=== PATIENT | male | born 1955 | race Caucasian/White ===

== ENCOUNTER 2021-05-21 09:56 | Inpatient (IN) | payer MEDICARE, OTHER ==
[2021-05-21 10:59] LABS: Absolute Lymphocytes (CBC) 0.6 K/uL (0.7-4.9); Basophils % 0.2 % (0-1.3); Hematocrit 42.9 % (39.6-49.0); Lymphocytes % 12.8 % (15.3-44.8); MPV 7.8 fL (7.6-11.3); RBC Red Blood Cell Count 4.67 M/uL (4.33-5.43)
[2021-05-21 11:02] LABS: Protime INR 1.15
[2021-05-21 11:14] LABS: ALT/SGPT 32 U/L (12-78); AST/SGOT 48 U/L (15-37); Alkaline Phosphatase 55 U/L (45-117); BUN Blood Urea Nitrogen 17 mg/dL (7-18); Bicarbonate 22 mmol/L (21-32); Bilirubin Direct 0.4 mg/dL (0-0.2); Bilirubin Total 0.8 mg/dL (0.2-1.0); Glucose Level 110 mg/dL (74-106); Magnesium 2.2 mg/dL (1.8-2.4); NT PRO-BNP 60 pg/mL (<125); Potassium 3.8 mmol/L (3.5-5.1); Protein, Total 6.4 g/dL (6.4-8.2); Sodium Level 136 mmol/L (136-145); Troponin (Emerg Dept Use Only) < 0.02 ng/mL (0.0-0.045)
--- NOTE | 2021-05-21 11:28 | RAD REPORT ---
EXAM DESCRIPTION: RAD - Chest Single View - 05/21/2021 10:31 am CLINICAL HISTORY: Cough;Dyspnea Chest pain. COMPARISON: No comparisons FINDINGS: Portable technique limits examination quality. Elevation of the left hemidiaphragm is seen without clear etiology. There is [id number] interst itial lung opacities present bilaterally, greater on the left, likely representing infection/bronchit is. The heart is mildly prominent in size. No displaced fractures.
[2021-05-21] MEDS ORDERED: AZITHROMYCIN 500 MG INJ IVPB ONE (11:30)
[2021-05-21] MEDS ORDERED: CEFTRIAXONE/SWI 1gm 1 GM/10 ML SYR ONE (11:31)
[2021-05-21] MEDS ORDERED: NA CHLORIDE 0.9% 250 ML ONE (11:31)
[2021-05-21] MEDS ORDERED: NA CHLORIDE 0.9% 50 ML ONE (11:31)
--- NOTE | 2021-05-21 12:43 | ER ---
Nurse's Notes [facility] Name: Abraham Crowe Age: 65 yrs Sex: Male : 1955 Arrival Date: 05/21/2021 Time: 09:57 Bed 20 Private MD: Diagnosis: Pneumonia due to SARS-associated coronavirus;Acute respiratory failure with hypoxia Presentation: 05/21 09:57 Chief complaint: EMS states: patient was at [facility] family clinic for the second time this ap3 week complaining of SOB and fever. Coronavirus screen: Client presents with at least one sign or symptom that may indicate coronavirus-19. Standard/surgical mask placed on the client. Ebola Screen: No symptoms or risks identified at this time. Initial Sepsis Screen: Does the patient meet any 2 criteria? RR > 20 per min. Temp <36.0*C (96.8*F)) or > 38.3*C (100.9*F). Yes Does the patient have a suspected source of infection? No. Patient's initial sepsis screen is negative. Risk Assessment: Do you want to hurt yourself or someone else? Patient reports no desire to harm self or others. Onset of symptoms was April 18, 2021. Care prior to arrival: Medication(s) given: Tylenol, 1000 mg, IV initiated. 20 GA, in the left antecubital area, Oxygen administered. via nasal cannula. 09:57 Method Of Arrival: EMS: [facility] ap3 09:57 Acuity: DOMINIC 3 ap3 Historical: - Allergies: 10:00 No Known Allergies; ap3 - PMHx: 10:00 Hypercholesterolemia; ap3 - PSHx: 10:00 None; ap3 - Immunization history:: Adult Immunizations up to date, Client reports having NOT received the Covid vaccine. - Social history:: Smoking status: Patient reports the use of cigarette tobacco products, smokes one-half pack cigarettes per day, Patient/guardian denies using alcohol, street drugs. Screenin:01 Abuse screen: Denies threats or abuse. Tuberculosis screening: No symptoms or risk ap3 factors identified. 10:16 Nutritional screening: No deficits noted. Fall Risk Ambulatory Aid- None/Bed Rest/Nurse jd3 Assist (0 pts). Gait- Normal/Bed Rest/Wheelchair (0 pts) Mental Status- Oriented to own ability (0 pts). Total Pereira Fall Scale indicates No Risk (0-24 pts). Assessment: 11:01 General: Appears uncomfortable, Behavior is calm, cooperative, appropriate for age. jd3 Pain: Complains of pain in head and chest Quality of pain is described as aching. Neuro: Level of Consciousness is awake, alert, obeys commands, Oriented to person, place, time, situation. Cardiovascular: Denies chest pain, Capillary refill < 3 seconds Patient's skin is warm and dry. Respiratory: Reports shortness of breath cough that is persistent Airway is patent Respiratory effort is even, unlabored, Respiratory pattern is regular, symmetrical, Breath sounds are diminished bilaterally. GI: Reports intolerance of fluids, intolerance of food, nausea. : No signs and/or symptoms were reported regarding the genitourinary system. EENT: No signs and/or symptoms were reported regarding the EENT system. Derm: Skin is intact, Skin is dry, Skin is normal, Skin temperature is warm. Musculoskeletal: Circulation, motion, and sensation intact. Range of motion: intact in all extremities. 11:27 Reassessment: Patient appears in no apparent distress at this time. No changes from jd3 previously documented assessment. Patient and/or family updated on plan of care and expected duration. Pain level reassessed. 12:30 Reassessment: Patient appears in no apparent distress at this time. No changes from jd3 previously documented assessment. Patient and/or family updated on plan of care and expected duration. Pain level reassessed. 14:30 Reassessment: Patient appears in no apparent distress at this time. No changes from jd3 previously documented assessment. Patient and/or family updated on plan of care and expected duration. Pain level reassessed. pt admitted to ER HOLD. see [facility] charting. Vital Signs: 09:57 BP 109 / 74; Pulse 88; Resp 26; Temp 101.9; Pulse Ox 95% on 4 lpm NC; Weight 99.79 kg; ap3 Height 6 ft. (182.88 cm); 11:27 BP 95 / 61; Pulse 76; Resp 25 S; Pulse Ox 96% on 4 lpm NC; jd3 12:30 BP 96 / 62; Pulse 75; Resp 26 S; Pulse Ox 96% on 4 lpm NC; jd3 14:30 BP 131 / 80; Pulse 85; Resp 18 S; Temp 98.7(TE); Pulse Ox 96% on 4 lpm NC; jd3 09:57 Body Mass Index 29.84 (99.79 kg, 182.88 cm) ap3 ED Course: 09:57 Patient arrived in ED. ap3 09:59 Patient has correct armband on for positive identification. Placed in gown. Bed in low mh5 position. Call light in reach. Side rails up X 1. Pillow given. 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 Pulse ox on. NIBP on. 09:59 Maintain EMS IV. Dressing intact. Site clean \T\ dry. mh5 10:00 Triage completed. ap3 10:08 Spencer Gallegos MD is Attending Physician. [facility] 10:14 Khoi Gonzalez RN is Primary Nurse. jd3 10:16 Samir Anne PA is PHCP. jr8 10:16 Arm band placed on. jd3 10:31 XRAY Chest (1 view) In Process Unspecified. EDMS 10:35 Flu Sent. 5 10:35 EKG done, by ED staff, reviewed by Spencer Gallegos MD COVID swab sent to lab. Flu and/or 5 RSV swab sent to lab. 10:53 Inserted saline lock: 20 gauge in right antecubital area, using aseptic technique. jd3 Blood collected. 12:39 CT Chest For PE Angio In Process Unspecified. EDMS 12:42 Jude Gonzalez DO is Hospitalizing Provider. jr8 15:15 No provider procedures requiring assistance completed. Patient admitted, IV remains in jd3 place. 05/27 19:00 Report given to Sadiq Gutierrez. vg1 Administered Medications: 04 10:20 Not Given (given by EMSs): Tylenol 1000 mg PO once ap3 11:35 Drug: Rocephin (cefTRIAXone) 1 grams Route: IV; Rate: calculated rate; Site: right jd3 antecubital; 11:46 Drug: Zithromax (azithromycin) 500 mg Route: IVPB; Infused Over: 1 hrs; Site: right jd3 antecubital; 14:14 Drug: SOLU-Medrol (methylPrednisoLONE) 125 mg Route: IVP; Site: right antecubital; jd3 Outcome: 12:42 Decision to Hospitalize by Provider. jr8 15:15 Admitted to ER Hold. Please see [employer] for further documentation. jd3 15:15 Condition: stable 15:15 Instructed on the need for admit. 05/28 12:18 Patient left the ED. em1 Signatures: Dispatcher [employer] EDMS Spencer Gallegos MD MD cha Martinez, Eric em1 Samir Anne PA PA jr8 Martinez, Maria [facility] Khoi Gonzalez RN RN jd3 Kylie Moran RN RN ap3 Kathy Dash RN RN vg1 Corrections: (The following items were deleted from the chart) 05/21 11:09 10:35 CORONAVIRUS+ drawn and sent. [address] 11:27 11:27 Reassessment: Patient appears in no apparent distress at this time. No changes jd3 from previously documented assessment. Patient and/or family updated on plan of care and expected duration. Pain level reassessed. Patient is alert, oriented x 3, equal unlabored respirations, skin warm/dry/pink. jd3
--- NOTE | 2021-05-21 12:43 | EDPHYS ---
Physician Documentation [facility] Name: Abraham Crowe Age: 65 yrs Sex: Male : 1955 Arrival Date: 05/21/2021 Time: 09:57 Bed 20 Private MD: ED Physician Spencer Gallegos HPI: 05/21 10:37 This 65 yrs old Male presents to ER via EMS with complaints of shortness of jr8 breath, fever. 10:37 This is a 65-year-old male that presented to the emergency department for complaints of jr8 shortness of breath, fever, diarrhea that started this past Wednesday. Patient with 101.9 fever upon arrival. This past Wednesday he was tested for coronavirus and had a negative result. Came to the emergency room today for feeling worse.. Severity of symptoms: At their worst the symptoms were moderate in the emergency department the symptoms are unchanged. The patient has not experienced similar symptoms in the past. The patient has not recently seen a physician. Historical: - Allergies: 10:00 No Known Allergies; ap3 - PMHx: 10:00 Hypercholesterolemia; ap3 - PSHx: 10:00 None; ap3 - Immunization history:: Adult Immunizations up to date, Client reports having NOT received the Covid vaccine. - Social history:: Smoking status: Patient reports the use of cigarette tobacco products, smokes one-half pack cigarettes per day, Patient/guardian denies using alcohol, street drugs. ROS: 10:37 Cardiovascular: Negative for chest pain, palpitations, and edema, Back: Negative for jr8 injury and pain, MS/Extremity: Negative for injury and deformity, Skin: Negative for injury, rash, and discoloration, Neuro: Negative for headache, weakness, numbness, tingling, and seizure. 10:37 Constitutional: Positive for body aches, chills, fever, malaise. 10:37 Respiratory: Positive for cough, shortness of breath. 10:37 Abdomen/GI: Positive for diarrhea, Negative for abdominal pain, nausea and vomiting. 10:37 All other systems are negative. Exam: 10:37 Constitutional: This is a well developed, well nourished patient who is awake, alert, jr8 and in no acute distress. 10:37 ENT: Nares patent. No nasal discharge, no septal abnormalities noted. Tympanic membranes are normal and external auditory canals are clear. Oropharynx with no redness, swelling, or masses, exudates, or evidence of obstruction, uvula midline. Mucous membranes moist. Cardiovascular: Regular rate and rhythm with a normal S1 and S2. No gallops, murmurs, or rubs. Normal PMI, no JVD. No pulse deficits. Abdomen/GI: Soft, non-tender, with normal bowel sounds. No distension or tympany. No guarding or rebound. No evidence of tenderness throughout. Back: No spinal tenderness. No costovertebral tenderness. Full range of motion. Skin: Warm, dry with normal turgor. Normal color with no rashes, no lesions, and no evidence of cellulitis. MS/ Extremity: Pulses equal, no cyanosis. Neurovascular intact. Full, normal range of motion. Neuro: Awake and alert, GCS 15, oriented to person, place, time, and situation. Cranial nerves II-XII grossly intact. Motor strength 5/5 in all extremities. Sensory grossly intact. 10:37 Respiratory: the patient does not display signs of respiratory distress, Respirations: tachypnea, that is mild, Breath sounds: rales, that are mild, are located in both bases. Vital Signs: 09:57 BP 109 / 74; Pulse 88; Resp 26; Temp 101.9; Pulse Ox 95% on 4 lpm NC; Weight 99.79 kg; ap3 Height 6 ft. (182.88 cm); 11:27 BP 95 / 61; Pulse 76; Resp 25 S; Pulse Ox 96% on 4 lpm NC; jd3 12:30 BP 96 / 62; Pulse 75; Resp 26 S; Pulse Ox 96% on 4 lpm NC; jd3 14:30 BP 131 / 80; Pulse 85; Resp 18 S; Temp 98.7(TE); Pulse Ox 96% on 4 lpm NC; jd3 09:57 Body Mass Index 29.84 (99.79 kg, 182.88 cm) ap3 MDM: 10:09 Patient medically screened. [facility] 12:40 Data reviewed: vital signs, nurses notes, lab test result(s), EKG, radiologic studies, jr8 CT scan, plain films. Data interpreted: Pulse oximetry: on room air is 88 %. Interpretation: hypoxia. Plan: O2 by NC applied. Counseling: I had a detailed discussion with the patient and/or guardian regarding: the historical points, exam findings, and any diagnostic results supporting the discharge/admit diagnosis, lab results, radiology results, the need for further work-up and treatment in the hospital. 05/21 10:17 Order name: Basic Metabolic Panel [facility] 05/21 10:17 Order name: CBC with Diff [facility] 05/21 10:17 Order name: LFT's [facility] 05/21 10:17 Order name: Magnesium [facility] 05/21 10:17 Order name: NT PRO-BNP [facility] 05/21 10:17 Order name: PT-INR [facility] 05/21 10:17 Order name: Troponin (emerg Dept Use Only); Complete Time: 11:20 [facility] 05/21 10:17 Order name: Blood Culture Adult (2); Complete Time: 11:25 [facility] 05/21 10:17 Order name: Lactate; Complete Time: 11:20 [facility] 05/21 10:17 Order name: Procalcitonin; Complete Time: 11:55 [facility] 05/21 10:17 Order name: Urine Culture; Complete Time: 06:08 [facility] 05/21 10:17 Order name: Flu; Complete Time: 11:30 [facility] 05/21 10:18 Order name: Basic Metabolic Panel; Complete Time: 11:20 EDME 05/21 10:18 Order name: CBC with Automated Diff; Complete Time: 11:20 EDME 05/21 10:18 Order name: Liver (Hepatic) Function; Complete Time: 11:20 EDME 05/21 10:18 Order name: Magnesium; Complete Time: 11:20 EDME 05/21 10:18 Order name: NT PRO-BNP; Complete Time: 11:20 EDME 05/21 10:18 Order name: Protime (+INR); Complete Time: 11:20 EDME 05/21 12:15 Order name: SARS-COV-2 RT PCR; Complete Time: 12:17 EDME 05/21 12:39 Order name: CRP; Complete Time: 14:53 8 05/21 12:39 Order name: Ferritin; Complete Time: 14:53 8 05/21 22:08 Order name: Urine Dipstick-Ancillary; Complete Time: 07:18 EDME 05/21 22:40 Order name: Urinalysis; Complete Time: 07:18 EDME 05/21 23:27 Order name: Urine Microscopic Only; Complete Time: 07:18 EDMS 08/05 06:09 Order name: CBC with Automated Diff; Complete Time: 07:18 EDMS 08/05 06:20 Order name: Comprehensive Metabolic Panel; Complete Time: 07:18 EDMS 08/05 06:20 Order name: Magnesium; Complete Time: 07:18 EDMS 0806 05:39 Order name: Comprehensive Metabolic Panel; Complete Time: 06:48 EDMS 0806 05:39 Order name: Magnesium; Complete Time: 06:48 EDMS 0804 10:17 Order name: XRAY Chest (1 view); Complete Time: 11:30 roslyn 04 12:11 Order name: CT Chest For PE Angio; Complete Time: 13:28 jr8 05/23 05:41 Order name: CBC with Automated Diff; Complete Time: 06:48 EDMS 0806 17:17 Order name: C-Reactive Protein; Complete Time: 17:34 EDMS 05/23 17:17 Order name: Ferritin; Complete Time: 17:34 EDMS 0807 06:09 Order name: CBC with Automated Diff; Complete Time: 06:08 EDMS 0807 06:19 Order name: Comprehensive Metabolic Panel; Complete Time: 06:08 EDMS 0807 06:19 Order name: C-Reactive Protein; Complete Time: 06:08 EDMS 0807 06:19 Order name: Magnesium; Complete Time: 06:08 EDMS 0807 08:49 Order name: RAD; Complete Time: 06:08 EDMS 0807 09:34 Order name: Manual Differential; Complete Time: 06:08 EDMS 0808 05:59 Order name: CBC with Automated Diff; Complete Time: 06:08 EDMS 0808 06:07 Order name: Comprehensive Metabolic Panel; Complete Time: 06:08 EDMS 0808 06:07 Order name: C-Reactive Protein; Complete Time: 06:08 EDMS 0808 06:07 Order name: Magnesium; Complete Time: 06:08 EDMS 0808 06:07 Order name: Ferritin; Complete Time: 06:08 EDMS 0808 07:54 Order name: RAD; Complete Time: 06:08 EDMS 08 04:58 Order name: CBC with Automated Diff; Complete Time: 06:08 EDMS 05/26 05:05 Order name: Comprehensive Metabolic Panel; Complete Time: 06:08 EDMS 08 05:05 Order name: C-Reactive Protein; Complete Time: 06:08 EDMS 05/26 05:05 Order name: Magnesium; Complete Time: 06:08 EDMS 05/26 05:05 Order name: Ferritin; Complete Time: 06:08 EDMS 05/27 05:15 Order name: CBC with Automated Diff; Complete Time: 16:01 EDMS 05/27 05:46 Order name: Comprehensive Metabolic Panel; Complete Time: 16:01 EDMS 05/27 05:46 Order name: C-Reactive Protein; Complete Time: 16:01 EDMS 05/27 05:46 Order name: Magnesium; Complete Time: 16:01 EDMS 05/27 05:46 Order name: Ferritin; Complete Time: 16:01 EDMS 05/28 05:34 Order name: Comprehensive Metabolic Panel; Complete Time: 22:32 EDMS 05/28 05:34 Order name: C-Reactive Protein; Complete Time: 22:32 EDMS 05/28 05:34 Order name: Magnesium; Complete Time: 22:32 EDMS 05/28 05:34 Order name: Ferritin; Complete Time: 22:32 EDMS 05/28 06:11 Order name: CBC with Automated Diff; Complete Time: 22:32 EDMS 05/21 10:17 Order name: EKG; Complete Time: 10:19 [facility] 05/21 10:17 Order name: Cardiac monitoring; Complete Time: 10:18 [facility] 05/21 10:17 Order name: EKG - Nurse/Tech; Complete Time: 10:53 [facility] 05/21 10:17 Order name: IV Saline Lock; Complete Time: 10:20 [facility] 05/21 10:17 Order name: Labs collected and sent; Complete Time: 10:53 [facility] 05/21 10:17 Order name: O2 Per Protocol; Complete Time: 10:17 [facility] 05/21 10:17 Order name: O2 Sat Monitoring; Complete Time: 10:17 [facility] 05/26 08:14 Order name: RAD; Complete Time: 08:59 EDMS 05/27 07:21 Order name: RAD; Complete Time: 16:01 EDMS Administered Medications: 10:20 Not Given (given by EMSs): Tylenol 1000 mg PO once ap3 11:35 Drug: Rocephin (cefTRIAXone) 1 grams Route: IV; Rate: calculated rate; Site: right jd3 antecubital; 11:46 Drug: Zithromax (azithromycin) 500 mg Route: IVPB; Infused Over: 1 hrs; Site: right jd3 antecubital; 14:14 Drug: SOLU-Medrol (methylPrednisoLONE) 125 mg Route: IVP; Site: right antecubital; jd3 Disposition: 05/29 07:11 Co-signature as Attending Physician, Spencer Gallegos MD I agree with the assessment and roslyn plan of care. Disposition Summary: 05/21/21 12:42 Hospitalization Ordered Hospitalization Status: Inpatient Admission jr8 Provider: Jude Gonzalez Condition: Fair jr8 Problem: new jr8 Symptoms: have improved jr8 Bed/Room Type: Standard [facility] Location: Telemetry/MedSurg (Inpatient)(05/28/21 10:25) bd Room Assignment: 406(05/28/21 10:25) bd Diagnosis - Pneumonia due to SARS-associated coronavirus jr8 - Acute respiratory failure with hypoxia jr8 Forms: - Medication Reconciliation Form jr8 - SBAR form jr8 Signatures: Dispatcher [employer] EDAlicia North Corey, MD MD cha Smirch, Shelby, RN RN Samir James PA PA jr8 Khoi Gonzalez RN RN jKylie Foster RN RN ap3 Corrections: (The following items were deleted from the chart) 05/21 11:09 10:19 CORONAVIRUS+.BRZ ordered. EDME EDMS 14:31 12:42 Telemetry/MedSurg (Inpatient) jr8 ss 14:31 12:42 jr8 ss 18:37 14:31 [facility] ER HOLD ss bd 18:37 14:31 ERHOLD- ss bd 18:39 18:37 Telemetry/MedSurg (Inpatient) bd bd 18:39 18:37 212 bd bd 18:39 18:39 bd bd 05/28 10:25 05/21 18:39 [facility] ER HOLD bd bd 05/28 10:25 05/21 18:39 ERHOLD- bd bd
--- NOTE | 2021-05-21 12:53 | RAD REPORT ---
EXAM DESCRIPTION: CT - Chest For Pe Angio - 05/21/2021 12:39 pm CLINICAL HISTORY: CHEST PAIN COMPARISON: No comparisons FINDINGS: Chest Wall: No suspicious thyroid nodules or pathologic lymphadenopathy. Lungs: Patchy bilateral ground-glass and mildly consolidative airspace disease. Pleura: No significant effusions or pneumothorax. Mediastinum/rosaura: Bilateral hilar adenopathy. This is likely reactive. Pulmonary arteries/Aorta: No filling defect identified. No aortic aneurysm. Heart: No significant pericardial effusion. Normal heart size. Upper abdomen: No acute abnormality. Bones: No acute abnormality. IMPRESSION: Negative for pulmonary embolism. Moderate bilateral airspace disease in a pattern that m ost likely represents multifocal pneumonia, including Covid-19.
[2021-05-21] MEDS ORDERED: METHYLPREDNISOLONE 125 MG INJ ONE (14:26)
--- NOTE | 2021-05-21 14:26 | P.HP ---
Certification for Inpatient Patient admitted to: Inpatient With expected LOS: >2 Midnights Patient will require the following post-hospital care: Other (Home oxygen) Practitioner: I am a practitioner with admitting privileges, knowledge of patient current condition, hospital course, and medical plan of care. Services: Services provided to patient in accordance with Admission requirements found in Title 42 Section 412.3 of the Code of Federal Regulations Patient History Date of Service: 05/21/21 Primary Care Provider: Konrad Delgado NP Reason for admission: Shortness of breath History of Present Illness: 65-year-old male with history of hyperlipidemia and tobacco abuse. Patient presented with increasing shortness of breath, fever, chills and fatigue. Symptoms started several days ago. It got worse on Wednesday. The patient continued to have increasing shortness of breath with exertion. He came to the ER for further evaluation. Patient is unvaccinated for COVID-19. In the ER patient was evaluated. Patient found to be hypoxic. Patient placed on 4 L per nasal cannula. Chest x-ray shows evidence of Covid pneumonia. CT scan shows evidence of Covid changes. Negative for pulmonary embolism. White count 4.7, hemoglobin 14.7. Platelet count 127. Sodium 136, potassium 3.8. BUN of 17, creatinine 1.21 with a GFR of 60. Glucose 110. AST 48, ALT 32. Troponin unremarkable. Lactic acid normal. Patient positive for Covid. Ferritin and CRP pending. Patient admitted for further evaluation and treatm ent. Patient given IV Solu-Medrol in the ER. 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 - Family History Family History: Reviewed- Non-Contributory - Social History Smoking Status: Light Tobacco smoker (1-9 cigarettes/day) Counseled patient to stop smoking for: less than 10 minutes Smoking therapy provided: Yes Patient receptive to therapy: Yes Alcohol use: No CD- Drugs: No Caffeine use: Yes Place of Residence: Home Review of Systems General: Weakness, Malaise, As per HPI Eyes: Unremarkable ENT: Nose Congestion, As per HPI Respiratory: Cough, Shortness of Breath, SOB with Excertion, As per HPI Cardiovascular: Unremarkable Gastrointestinal: Nausea, As per HPI Genitourinary: Unremarkable Musculoskeletal: Unremarkable Integumentary: Unremarkable Neurological: Unremarkable Lymphatics: Unremarkable Physical Examination - Studies Laboratory Data (last 24 hrs) 05/21/21 10:47: PT 13.3 H, INR 1.15 05/21/21 10:47: WBC 4.70, Hgb 14.7, Hct 42.9, Plt Count 127 L 05/21/21 10:47: Sodium 136, Potassium 3.8, BUN 17, Creatinine 1.21, Glucose 110 H, Magnesium 2.2, Total Bilirubin 0.8, AST 48 H, ALT 32, Alkaline Phosphatase 55 Microbiology Data (last 24 hrs): 05/21/21 10:34 Nasopharnyx Influenza Type A Antigen Screen - Final 05/21/21 10:34 Nasopharnyx Influenza Type B Antigen Screen - Final Assessment and Plan - Plan COVID: Positive, unvaccinated Chest x-ray: FINDINGS: Portable technique limits examination quality. Elevation of the left hemidiaphragm is seen without clear etiology. There is atzq-yn-cgltesvj interstitial lung opacities present bilaterally, greater on the left, likely representing infection/bronchitis. The heart is mildly prominent in size. No displaced fractures. CT scan: COMPARISON: No comparisons FINDINGS: Chest Wall: No suspicious thyroid nodules or pathologic lymphadenopathy. Lungs: Patchy bilateral ground-glass and mildly consolidative airspace disease. Pleura: No significant effusions or pneumothorax. Mediastinum/rosaura: Bilateral hilar adenopathy. This is likely reactive. Pulmonary arteries/Aorta: No filling defect identified. No aortic aneurysm. Heart: No significant pericardial effusion. Normal heart size. Upper abdomen: No acute abnormality. Bones: No acute abnormality. IMPRESSION: Negative for pulmonary embolism. Moderate bilateral airspace disease in a pattern that most likely represents multifocal pneumonia, including Covid-19. Physical Exam: GENERAL: The patient is a well-developed, well-nourished, in no apparent distress. Alert and oriented x3. VITAL SIGNS: Reviewed HEENT: Extraocular movements intact. Nares patent. NECK: Supple. No carotid bruits. No lymphadenopathy or thyromegaly. LUNGS: Patient does not appear in any distress. Currently on 4 L per nasal cannula HEART: Regular rate and rhythm on telemetry ABDOMEN: Soft, nontender, and nondistended. Positive bowel sounds. No hepatosplenomegaly was noted. EXTREMITIES: Without any cyanosis, clubbing, rash, lesions or peripheral edema. NEUROLOGIC: The patient is oriented to person, place and time. Strength and sensation are grossly intact. Face is symmetric. SKIN: Normal color, turgor and temperature. No ulcerations or rashes noted. Impression: Shortness of breath secondary to bilateral Covid pneumonia with hypoxia, unvaccinated Hyperlipidemia Plan: Shortness of breath secondary to bilateral Covid pneumonia with hypoxia, unvaccinated: Patient admitted for further evaluation and treatment. Will continue with IV steroids and supplementation. Will monitor CRP and ferritin. Will provide medication for cough, shortness of breath. Encourage proning, incentive spirometer, and ambulation. Pulmonology consulted. Await further recommendations. DVT prophylaxisLovenox in place. Recheck chest x-ray tomorrow. Will continue to reassess and monitor. Respiratory to wean off oxygen. If symptoms worsen patient may benefit with baricitinib. Anticipate improvement over the next 72 hours. Hyperlipidemia: Restart Crestor Code Status: Full Code DVT prophylaxis: Lovenox Advanced Care Planning-30 minutes: Home at discharge likely with home oxygen Discharge Plan: [facility] Plan to discharge in: Greater than 2 days - Advance Directives Does patient have a Living Will: No Does patient have a Durable POA for Healthcare: No - Code Status/Comfort Care Code Status Assessed: Yes (Patient is full code) Time Spent Managing Pts Care (In Minutes): 55
[2021-05-21] MEDS ORDERED: ONDANSETRON 4 MG/2 ML VIAL IV PRN (14:38)
[2021-05-21 14:52] LABS: C-Reactive Protein 36.1 mg/L (<3.00); Ferritin 1994.6 ng/mL (26-388)
[2021-05-21] MEDS: ASCORBIC ACID 500 MG TABLET PO SCH ×2 (17:00→21:00)
[2021-05-21] MEDS: THIAMINE HCL 100 MG TABLET PO SCH (21:00)
[2021-05-21] MEDS: METHYLPREDNISOLONE 125 MG INJ IV SCH (21:00)
[2021-05-21] MEDS: FAMOTIDINE 20 MG TAB PO SCH (21:00)
[2021-05-21] MEDS: ROSUVASTATIN 10 MG TAB PO SCH (21:00)
[2021-05-21] MEDS ORDERED: THIAMINE HCL 100 MG TABLET ONE (22:00)
[2021-05-21] MEDS ORDERED: METHYLPREDNISOLONE 40 MG INJ ONE (22:01)
[2021-05-21] MEDS ORDERED: FAMOTIDINE 20 MG TAB ONE (22:01)
[2021-05-21] MEDS ORDERED: ASCORBIC ACID 500 MG TABLET ONE (22:01)
[2021-05-21 22:07] LABS: Urine Blood Trace-lysed (Negative); Urine Glucose Negative (Negative); Urine Protein 1+ (Negative); Urine pH 5.5 (5.0-7.0)
[2021-05-21 22:26] LABS: Urine Appearance CLEAR (Clear); Urine Bilirubin NEGATIVE (Negative); Urine Blood NEGATIVE (Negative); Urine Color DK YELLOW (Yellow); Urine Glucose TRACE (Negative); Urine Protein 1+ (Negative); Urine Specific Gravity >=1.030 (1.005-1.030)
[2021-05-21 22:39] LABS: Urine Microscopic Reflex ORDER UMIC
[2021-05-21] MEDS ORDERED: ROSUVASTATIN 10 MG TAB ONE (22:57)
[2021-05-21 23:26] LABS: Urine Bacteria <20 /HPF (NONE SEEN); Urine RBC <5 /HPF (NONE SEEN)
[2021-05-22] MEDS: BENZONATATE 100 MG CAP PO PRN ×3 (02:48→17:54)
[2021-05-22] MEDS ORDERED: BENZONATATE 100 MG CAP PO ONE ×3 (03:09→18:14)
[2021-05-22 06:02] LABS: Absolute Lymphocytes (CBC) 0.6 K/uL (0.7-4.9); Basophils % 0.3 % (0-1.3); Hematocrit 43.5 % (39.6-49.0); Lymphocytes % 11.6 % (15.3-44.8); MPV 8.1 fL (7.6-11.3); RBC Red Blood Cell Count 4.75 M/uL (4.33-5.43)
[2021-05-22 06:20] LABS: Albumin 2.8 g/dL (3.4-5.0); Bilirubin Total 0.5 mg/dL (0.2-1.0); Magnesium 2.5 mg/dL (1.8-2.4); Potassium 4.2 mmol/L (3.5-5.1); Protein, Total 6.2 g/dL (6.4-8.2)
--- NOTE | 2021-05-22 06:23 | P.PN ---
Subjective Date of Service: 05/22/21 Primary Care Provider: Konrad Delgado NP Chief Complaint: Shortness of breath Subjective: Other (Patient still requiring increased oxygen.) Physical Examination - Vital Signs Temperature: 98.2 F Blood Pressure: 119/74 Pulse: 72 Respirations: 27 Pulse Ox (%): 92 - Studies Laboratory Data (last 24 hrs) 05/21/21 10:47: PT 13.3 H, INR 1.15 05/21/21 10:47: WBC 4.70, Hgb 14.7, Hct 42.9, Plt Count 127 L 05/21/21 10:47: Sodium 136, Potassium 3.8, BUN 17, Creatinine 1.21, Glucose 110 H, Magnesium 2.2, Total Bilirubin 0.8, AST 48 H, ALT 32, Alkaline Phosphatase 55 Microbiology Data (last 24 hrs): 05/21/21 10:34 Nasopharnyx Influenza Type A Antigen Screen - Final 05/21/21 10:34 Nasopharnyx Influenza Type B Antigen Screen - Final Assessment & Plan Discharge Plan: Home Plan to discharge in: Greater than 2 days Physician Review Additional Text: COVID: Positive, unvaccinated Chest x-ray: FINDINGS: Portable technique limits examination quality. Elevation of the left hemidiaphragm is seen without clear etiology. There is vwhy-am-dyybcabg interstitial lung opacities present bilaterally, greater on the left, likely representing infection/bronchitis. The heart is mildly prominent in size. No displaced fractures. CT scan: COMPARISON: No comparisons FINDINGS: Chest Wall: No suspicious thyroid nodules or pathologic lymphadenopathy. Lungs: Patchy bilateral ground-glass and mildly consolidative airspace disease. Pleura: No significant effusions or pneumothorax. Mediastinum/rosaura: Bilateral hilar adenopathy. This is likely reactive. Pulmonary arteries/Aorta: No filling defect identified. No aortic aneurysm. Heart: No significant pericardial effusion. Normal heart size. Upper abdomen: No acute abnormality. Bones: No acute abnormality. IMPRESSION: Negative for pulmonary embolism. Moderate bilateral airspace disease in a pattern that most likely represents multifocal pneumonia, including Covid-19. Physical Exam: GENERAL: The patient is a well-developed, well-nourished, in no apparent distress. Alert and oriented x3. VITAL SIGNS: Reviewed HEENT: Extraocular movements intact. Nares patent. NECK: Supple. No carotid bruits. No lymphadenopathy or thyromegaly. LUNGS: Patient does not appear in any distress. No wheezing noted currently on 5 L per nasal cannula HEART: Regular rate and rhythm on telemetry ABDOMEN: Soft, nontender, and nondistended. Positive bowel sounds. No hepatosplenomegaly was noted. EXTREMITIES: Without any cyanosis, clubbing, rash, lesions or peripheral edema. NEUROLOGIC: The patient is oriented to person, place and time. Strength and sensation are grossly intact. Face is symmetric. SKIN: Normal color, turgor and temperature. No ulcerations or rashes noted. Impression: Shortness of breath secondary to bilateral Covid pneumonia with hypoxia, unvaccinated with likely underlying COPD Hyperlipidemia Plan: Shortness of breath secondary to bilateral Covid pneumonia with hypoxia, unvaccinated with likely underlying COPD: Continue current treatment this time. Increase oxygen content noted. Continue with IV steroids and supplementation. Will monitor CRP and ferritin. Will provide medication for cough, shortness of breath. Encourage proning, incentive spirometer, and ambulation. Suspect underlying COPD. Will add Brovana and nebulizer treatments. Pulmonology consulted. Await further recommendations. DVT prophylaxisLovenox in place. Recheck chest x-ray tomorrow. Will continue to reassess and monitor. R espiratory to wean off oxygen. Anticipate improvement over the next 72 hours Hyperlipidemia: Restart Crestor Code Status: Full Code DVT prophylaxis: Lovenox Advanced Care Planning-30 minutes: Home at discharge likely with home oxygen Time Spent Managing Pts Care (In Minutes): 55
[2021-05-22] MEDS: ARFORMOTEROL TARTRATE 15 MCG/2 ML VIAL.NEB NEB SCH ×2 (08:00→21:35)
[2021-05-22] MEDS ORDERED: THIAMINE HCL 100 MG TABLET ONE ×2 (09:25→21:13)
[2021-05-22] MEDS ORDERED: METHYLPREDNISOLONE 125 MG INJ ONE ×3 (09:25→21:13)
[2021-05-22] MEDS ORDERED: FAMOTIDINE 20 MG TAB ONE ×2 (09:25→21:14)
[2021-05-22] MEDS ORDERED: ASCORBIC ACID 500 MG TABLET ONE ×4 (09:25→21:13)
[2021-05-22] MEDS ORDERED: ZINC SULFATE 220 MG CAP ONE (09:25)
[2021-05-22] MEDS ORDERED: VITAMIN D 1000 UNIT TAB ONE (09:25)
[2021-05-22] MEDS ORDERED: ENOXAPARIN 40 MG/0.4 ML SQ ONE (09:26)
[2021-05-22] MEDS: ENOXAPARIN 40 MG/0.4 ML SQ SCH (09:32)
[2021-05-22] MEDS: VITAMIN D 1000 UNIT TAB PO SCH (09:33)
[2021-05-22] MEDS: ASCORBIC ACID 500 MG TABLET PO SCH ×4 (09:33→21:41)
[2021-05-22] MEDS: FAMOTIDINE 20 MG TAB PO SCH ×2 (09:33→21:41)
[2021-05-22] MEDS: THIAMINE HCL 100 MG TABLET PO SCH ×2 (09:33→21:41)
[2021-05-22] MEDS: ZINC SULFATE 220 MG CAP PO SCH (09:33)
[2021-05-22] MEDS: METHYLPREDNISOLONE 125 MG INJ IV SCH ×3 (09:33→21:41)
[2021-05-22] MEDS ORDERED: POTASSIUM CL SA 10 MEQ TAB PO ONE (10:32)
--- NOTE | 2021-05-22 14:55 | P.CNS ---
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
[2021-05-22] MEDS ORDERED: BARICITINIB 2 MG TABLET PO SCH (15:00)
[2021-05-22] MEDS: IVERMECTIN 3 MG TABLET PO SCH (18:07)
[2021-05-22] MEDS: ROSUVASTATIN 10 MG TAB PO SCH (21:41)
[2021-05-22] MEDS ORDERED: ARFORMOTEROL TARTRATE 15 MCG/2 ML VIAL.NEB ONE (21:54)
[2021-05-23] MEDS: BENZONATATE 100 MG CAP PO PRN (00:09)
[2021-05-23] MEDS: ACETAMINOPHEN 500 MG TAB PO PRN (00:09)
[2021-05-23] MEDS ORDERED: ACETAMINOPHEN 500 MG TAB ONE (00:30)
[2021-05-23] MEDS ORDERED: BENZONATATE 100 MG CAP PO ONE ×2 (00:30→10:53)
[2021-05-23 05:23] LABS: Absolute Lymphocytes (CBC) 0.6 K/uL (0.7-4.9); Basophils % 0.2 % (0-1.3); Hematocrit 44.6 % (39.6-49.0); Lymphocytes % 4.9 % (15.3-44.8); MPV 8.2 fL (7.6-11.3); RBC Red Blood Cell Count 4.83 M/uL (4.33-5.43)
[2021-05-23 05:39] LABS: Albumin 2.9 g/dL (3.4-5.0); Bilirubin Total 0.6 mg/dL (0.2-1.0); Magnesium 2.8 mg/dL (1.8-2.4); Potassium 4.6 mmol/L (3.5-5.1); Protein, Total 6.6 g/dL (6.4-8.2)
--- NOTE | 2021-05-23 06:23 | P.PN ---
Subjective Date of Service: 05/23/21 Primary Care Provider: Konrad Delgado NP Chief Complaint: Shortness of breath Subjective: Other (Requiring more oxygen.) Physical Examination - Vital Signs Temperature: 98.4 F Blood Pressure: 125/77 Pulse: 70 Respirations: 30 Pulse Ox (%): 88 Assessment & Plan Discharge Plan: Home Plan to discharge in: Greater than 2 days Physician Review Additional Text: COVID: Positive, unvaccinated Chest x-ray: FINDINGS: Portable technique limits examination quality. Elevation of the left hemidiaphragm is seen without clear etiology. There is xotu-hx-xojrrhph interstitial lung opacities present bilaterally, greater on the left, likely representing infection/bronchitis. The heart is mildly prominent in size. No displaced fractures. CT scan: COMPARISON: No comparisons FINDINGS: Chest Wall: No suspicious thyroid nodules or pathologic lymphadenopathy. Lungs: Patchy bilateral ground-glass and mildly consolidative airspace disease. Pleura: No significant effusions or pneumothorax. Mediastinum/rosaura: Bilateral hilar adenopathy. This is likely reactive. Pulmonary arteries/Aorta: No filling defect identified. No aortic aneurysm. Heart: No significant pericardial effusion. Normal heart size. Upper abdomen: No acute abnormality. Bones: No acute abnormality. IMPRESSION: Negative for pulmonary embolism. Moderate bilateral airspace disease in a pattern that most likely represents multifocal pneumonia, including Covid-19. Physical Exam: GENERAL: The patient is a well-developed, well-nourished, in no apparent distress. Alert and oriented x3. VITAL SIGNS: Reviewed HEENT: Extraocular movements intact. Nares patent. NECK: Supple. No carotid bruits. No lymphadenopathy or thyromegaly. LUNGS: Still with some wheezing. Currently on high flow oxygen. HEART: Regular rate and rhythm on telemetry ABDOMEN: Soft, nontender, and nondistended. Positive bowel sounds. No hep atosplenomegaly was noted. EXTREMITIES: Without any cyanosis, clubbing, rash, lesions or peripheral edema. NEUROLOGIC: The patient is oriented to person, place and time. Strength and sensation are grossly intact. Face is symmetric. SKIN: Normal color, turgor and temperature. No ulcerations or rashes noted. Impression: Shortness of breath secondary to bilateral Covid pneumonia with hypoxia, unvaccinated with likely underlying COPD Hyperlipidemia Plan: Shortness of breath secondary to bilateral Covid pneumonia with hypoxia, unv accinated with likely underlying COPD: Patient requiring more oxygen at this time. Currently on high flow. Continue with IV steroids and supplements. Patient not a candidate for baricitinib due to protocol. Continue to monitor CRP and ferritin. Continue to encourage incentive spirometer, proning and ambulation. Continue with COPD medication. Pulmonology has adjusted medication. We will continue to monitor closely. Respiratory to continue to wean off oxygen. Hyperlipidemia: Continue Crestor Code Status: Full Code DVT prophylaxis: Debbie Advanced Care Planning-30 minutes: Home at discharge likely with home oxygen Time Spent Managing Pts Care (In Minutes): 55
[2021-05-23] MEDS: ARFORMOTEROL TARTRATE 15 MCG/2 ML VIAL.NEB NEB SCH ×2 (08:00→19:40)
[2021-05-23] MEDS: ASCORBIC ACID 500 MG TABLET PO SCH ×4 (09:00→21:45)
[2021-05-23] MEDS ORDERED: BARICITINIB 2 MG TABLET PO SCH (09:00)
[2021-05-23] MEDS: VITAMIN D 1000 UNIT TAB PO SCH (09:00)
[2021-05-23] MEDS: ENOXAPARIN 40 MG/0.4 ML SQ SCH (09:00)
[2021-05-23] MEDS: ASPIRIN EC 81 MG TAB PO SCH (09:00)
[2021-05-23] MEDS: FAMOTIDINE 20 MG TAB PO SCH ×2 (09:00→21:45)
[2021-05-23] MEDS: ZINC SULFATE 220 MG CAP PO SCH (09:00)
[2021-05-23] MEDS: METHYLPREDNISOLONE 125 MG INJ IV SCH ×3 (09:00→21:45)
[2021-05-23] MEDS: THIAMINE HCL 100 MG TABLET PO SCH ×2 (09:00→21:45)
[2021-05-23] MEDS ORDERED: ARFORMOTEROL TARTRATE 15 MCG/2 ML VIAL.NEB ONE ×2 (09:11→19:50)
[2021-05-23] MEDS ORDERED: METHYLPREDNISOLONE 125 MG INJ ONE ×3 (09:41→20:33)
[2021-05-23] MEDS ORDERED: ASCORBIC ACID 500 MG TABLET ONE ×3 (09:42→20:33)
[2021-05-23] MEDS ORDERED: ZINC SULFATE 220 MG CAP ONE (09:42)
[2021-05-23] MEDS ORDERED: THIAMINE HCL 100 MG TABLET ONE ×2 (09:42→21:48)
[2021-05-23] MEDS ORDERED: FAMOTIDINE 20 MG TAB ONE ×2 (09:42→20:34)
[2021-05-23] MEDS ORDERED: VITAMIN D 1000 UNIT TAB ONE (09:42)
[2021-05-23] MEDS ORDERED: ENOXAPARIN 60 MG/0.6 ML SQ ONE (09:43)
--- NOTE | 2021-05-23 13:05 | P.PN ---
Subjective Date of Service: 05/23/21 Primary Care Provider: Konrad Delgado NP Chief Complaint: REsp failure Subjective: Worsening (now requiring more O2) Review of Systems General: Weakness Respiratory: Shortness of Breath Physical Examination - Vital Signs Temperature: 98 F Blood Pressure: 100/59 Pulse: 69 Respirations: 32 Pulse Ox (%): 96 - Physical Exam General: Alert, Oriented x3, Cooperative, Mild distress Assessment & Plan - Problems (Diagnosis) (1) Pneumonia due to COVID-19 virus Current Visit: Yes Status: Acute Plan: Worsened/ Check CRP add Barcitnib/ Fully anticaogulate add aspirin Physician Review Additional Text: COVID: Positive, unvaccinated Chest x-ray: FINDINGS: Portable technique limits examination quality. Elevation of the left hemidiaphragm is seen without clear etiology. There is akgi-gr-fmgxiwwr interstitial lung opacities present bilaterally, greater on the left, likely representing infection/bronchitis. The heart is mildly prominent in size. No displaced fractures. CT scan: COMPARISON: No comparisons FINDINGS: Chest Wall: No suspicious thyroid nodules or pathologic lymphadenopathy. Lungs: Patchy bilateral ground-glass and mildly consolidative airspace disease. Pleura: No significant effusions or pneumothorax. Mediastinum/rosaura: Bilateral hilar adenopathy. This is likely reactive. Pulmonary arteries/Aorta: No filling defect identified. No aortic aneurysm. Heart: No significant pericardial effusion. Normal heart size. Upper abdomen: No acute abnormality. Bones: No acute abnormality. IMPRESSION: Negative for pulmonary embolism. Moderate bilateral airspace disease in a pattern that most likely represents multifocal pneumonia, including Covid-19. Physical Exam: GENERAL: The patient is a well-developed, well-nourished, in no apparent distress. Alert and oriented x3. VITAL SIGNS: Reviewed HEENT: Extraocular movements intact. Nares patent. NECK: Supple. No carotid bruits. No lymphadenopathy or thyromegaly. LUNGS: Patient does not appear in any distress. No wheezing noted currently on 5 L per nasal cannula HEART: Regular rate and rhythm on telemetry ABDOMEN: Soft, nontender, and nondistended. Positive bowel sounds. No hepatosplenomegaly was noted. EXTREMITIES: Without any cyanosis, clubbing, rash, lesions or peripheral edema. NEUROLOGIC: The patient is oriented to person, place and time. Strength and sensation are grossly intact. Face is symmetric. SKIN: Normal color, turgor and temperature. No ulcerations or rashes noted. Impression: Shortness of breath secondary to bilateral Covid pneumonia with hypoxia, unvaccinated with likely underlying COPD Hyperlipidemia Plan: Shortness of breath secondary to bilateral Covid pneumonia with hypoxia, unvaccinated with likely underlying COPD: Continue current treatment this time. Increase oxygen content noted. Continue with IV steroids and supplementation. Will monitor CRP and ferritin. Will provide medication for cough, shortness of breath. Encourage proning, incentive spirometer, and ambulation. Suspect underlying COPD. Will add Brovana and nebulizer treatments. Pulmonology consulted. Await further recommendations. DVT prophylaxisLovenox in place. Recheck chest x-ray tomorrow. Will continue to reassess and monitor. Re spiratory to wean off oxygen. Anticipate improvement over the next 72 hours Hyperlipidemia: Restart Crestor Code Status: Full Code DVT prophylaxis: Lovenox Advanced Care Planning-30 minutes: Home at discharge likely with home oxygen
[2021-05-23] MEDS: RIVAROXABAN 20 MG TABLET PO SCH (17:00)
[2021-05-23 17:17] LABS: C-Reactive Protein 21.3 mg/L (<3.00); Ferritin 2076.1 ng/mL (26-388)
[2021-05-23] MEDS: ROSUVASTATIN 10 MG TAB PO SCH (21:45)
[2021-05-24] MEDS: BENZONATATE 100 MG CAP PO PRN (05:06)
[2021-05-24] MEDS ORDERED: BENZONATATE 100 MG CAP PO ONE (05:26)
[2021-05-24 06:04] LABS: Absolute Lymphocytes (CBC) 0.5 K/uL (0.7-4.9); Basophils % 0.1 % (0-1.3); Hematocrit 44.3 % (39.6-49.0); Lymphocytes % 4.8 % (15.3-44.8); MPV 7.7 fL (7.6-11.3); RBC Red Blood Cell Count 4.75 M/uL (4.33-5.43)
[2021-05-24 06:18] LABS: Albumin 2.7 g/dL (3.4-5.0); Bilirubin Total 0.6 mg/dL (0.2-1.0); C-Reactive Protein 19.5 mg/L (<3.00); Magnesium 3.1 mg/dL (1.8-2.4); Potassium 4.9 mmol/L (3.5-5.1); Protein, Total 6.3 g/dL (6.4-8.2)
--- NOTE | 2021-05-24 06:23 | P.PN ---
Subjective Date of Service: 05/24/21 Primary Care Provider: Konrad Delgado NP Chief Complaint: Shortness of breath Subjective: Other (Patient remains on high flow oxygen.) Physical Examination - Vital Signs Temperature: 98.4 F Blood Pressure: 94/77 Pulse: 67 Respirations: 24 Pulse Ox (%): 90 Assessment & Plan Discharge Plan: Home Plan to discharge in: Greater than 2 days Physician Review Additional Text: COVID: Positive, unvaccinated Chest x-ray: FINDINGS: Portable technique limits examination quality. Elevation of the left hemidiaphragm is seen without clear etiology. There is lfln-tv-rxffognv interstitial lung opacities present bilaterally, greater on the left, likely representing infection/bronchitis. The heart is mildly prominent in size. No displaced fractures. CT scan: COMPARISON: No comparisons FINDINGS: Chest Wall: No suspicious thyroid nodules or pathologic lymphadenopathy. Lungs: Patchy bilateral ground-glass and mildly consolidative airspace disease. Pleura: No significant effusions or pneumothorax. Mediastinum/rosaura: Bilateral hilar adenopathy. This is likely reactive. Pulmonary arteries/Aorta: No filling defect identified. No aortic aneurysm. Heart: No significant pericardial effusion. Normal heart size. Upper abdomen: No acute abnormality. Bones: No acute abnormality. IMPRESSION: Negative for pulmonary embolism. Moderate bilateral airspace disease in a pattern that most likely represents multifocal pneumonia, including Covid-19. Follow up CXR: COMPARISON: Chest Single View dated 05/21/2021; Chest For Pe Angio dated 05/21/2021 FINDINGS: Diffuse prominence of the pulmonary interstitium. There is some ill- defined focal opacities as well. The heart size is within normal limits.No acute osseous abnormality. No significant pleural effusions or pneumothorax. IMPRESSION: Worsened aeration of the lungs with either worsening pneumonia versus pneumonia with developing superimposed edema. Physical Exam: GENERAL: The patient is a well-developed, well-nourished, in no apparent distress. Alert and oriented x3. VITAL SIGNS: Reviewed HEENT: Extraocular movements intact. Nares patent. NECK: Supple. No carotid bruits. No lymphadenopathy or thyromegaly. LUNGS: Decreased bilateral. Patient on high flow oxygen HEART: Regular rate and rhythm on telemetry ABDOMEN: Soft, nontender, and nondistended. Positive bowel sounds. No hepatosplenomegaly was noted. EXTREMITIES: Without any cyanosis, clubbing, rash, lesions or peripheral edema. NEUROLOGIC: The patient is oriented to person, place and time. Strength and sensation are grossly intact. Face is symmetric. SKIN: Normal color, turgor and temperature. No ulcerations or rashes noted. Impression: Shortness of breath secondary to bilateral Covid pneumonia with hypoxia, unvaccinated with likely underlying COPD Hyperlipidemia Plan: Shortness of breath secondary to bilateral Covid pneumonia with hypoxia, unvaccinated with likely underlying COPD: Patient remains on high flow oxygen. Continue to wean off. Continue with IV steroids, supplements and ivermectin. Patient not a candidate for baricitinib due to protocol. Continue with COPD medication. Continue with pulmonology recommendations. Encourage ambulation, incentive spirometer and proning. We will continue to monitor closely. Recheck chest x-ray tomorrow. Hyperlipidemia: Continue Crestor Code Status: Full Code DVT prophylaxis: Xarelto Advanced Care Planning-30 minutes: Home at discharge likely with home oxygen Time Spent Managing Pts Care (In Minutes): 55
[2021-05-24] MEDS: ARFORMOTEROL TARTRATE 15 MCG/2 ML VIAL.NEB NEB SCH ×2 (08:10→20:00)
[2021-05-24] MEDS: IPRATROPIUM BROM 0.5MG/2.5ML NEB PRN (08:10)
[2021-05-24] MEDS: ALBUTEROL 2.5 MG/3 ML NEB SOL NEB PRN (08:10)
[2021-05-24] MEDS ORDERED: ALBUTEROL 2.5 MG/3 ML NEB SOL ONE (08:27)
[2021-05-24] MEDS ORDERED: ARFORMOTEROL TARTRATE 15 MCG/2 ML VIAL.NEB ONE (08:27)
[2021-05-24] MEDS ORDERED: IPRATROPIUM BROM 0.5MG/2.5ML ONE (08:27)
--- NOTE | 2021-05-24 08:48 | RAD REPORT ---
EXAM DESCRIPTION: RAD - Chest Single View - 05/24/2021 6:38 am CLINICAL HISTORY: Follow up COVID COMPARISON: Chest Single View dated 05/21/2021; Chest For Pe Angio dated 05/21/2021 FINDINGS: Diffuse prominence of the pulmonary interstitium. There is some ill-defined focal opacitie s as well. The heart size is within normal limits.No acute osseous abnormality. No significant pleura l effusions or pneumothorax. IMPRESSION: Worsened aeration of the lungs with either worsening pneumonia versus pneumonia with dev eloping superimposed edema.
[2021-05-24] MEDS ORDERED: BARICITINIB 2 MG TABLET PO SCH (09:00)
[2021-05-24] MEDS: METHYLPREDNISOLONE 125 MG INJ IV SCH ×3 (09:00→21:36)
[2021-05-24] MEDS: ASCORBIC ACID 500 MG TABLET PO SCH ×4 (09:00→21:37)
[2021-05-24] MEDS: ASPIRIN EC 81 MG TAB PO SCH (09:00)
[2021-05-24] MEDS: FAMOTIDINE 20 MG TAB PO SCH ×2 (09:00→21:37)
[2021-05-24] MEDS: ZINC SULFATE 220 MG CAP PO SCH (09:00)
[2021-05-24] MEDS: VITAMIN D 1000 UNIT TAB PO SCH (09:00)
[2021-05-24] MEDS: THIAMINE HCL 100 MG TABLET PO SCH ×2 (09:00→21:37)
[2021-05-24 09:33] LABS: Blood Morphology Comment NOT SEEN (NOT SEEN); Platelet Estimate ADEQ
[2021-05-24] MEDS ORDERED: METHYLPREDNISOLONE 125 MG INJ ONE ×3 (10:46→20:46)
[2021-05-24] MEDS ORDERED: THIAMINE HCL 100 MG TABLET ONE ×2 (10:46→20:46)
[2021-05-24] MEDS ORDERED: ZINC SULFATE 220 MG CAP ONE (10:46)
[2021-05-24] MEDS ORDERED: ASPIRIN 81 MG CHEWABLE TABLET ONE (10:46)
[2021-05-24] MEDS ORDERED: VITAMIN D 1000 UNIT TAB ONE (10:47)
[2021-05-24] MEDS ORDERED: ASCORBIC ACID 500 MG TABLET ONE ×4 (10:47→20:46)
[2021-05-24] MEDS ORDERED: FAMOTIDINE 20 MG TAB ONE ×2 (10:47→20:46)
[2021-05-24] MEDS: IVERMECTIN 3 MG TABLET PO SCH (16:00)
[2021-05-24] MEDS: RIVAROXABAN 20 MG TABLET PO SCH (16:34)
[2021-05-24] MEDS: ROSUVASTATIN 10 MG TAB PO SCH (21:37)
[2021-05-25 05:50] LABS: Hematocrit 43.8 % (39.6-49.0); RBC Red Blood Cell Count 4.74 M/uL (4.33-5.43)
[2021-05-25 05:51] LABS: Absolute Lymphocytes (CBC) 0.6 K/uL (0.7-4.9); Basophils % 0.1 % (0-1.3); Lymphocytes % 4.2 % (15.3-44.8)
[2021-05-25] MEDS: BENZONATATE 100 MG CAP PO PRN (05:56)
[2021-05-25] MEDS ORDERED: BENZONATATE 100 MG CAP PO ONE (06:00)
[2021-05-25 06:07] LABS: Albumin 2.6 g/dL (3.4-5.0); Bilirubin Total 0.6 mg/dL (0.2-1.0); C-Reactive Protein 10.8 mg/L (<3.00); Magnesium 3.1 mg/dL (1.8-2.4); Potassium 4.8 mmol/L (3.5-5.1); Protein, Total 6.1 g/dL (6.4-8.2)
--- NOTE | 2021-05-25 06:27 | P.PN ---
Subjective Date of Service: 05/25/21 Primary Care Provider: Konrad Delgado NP Chief Complaint: Shortness of breath Subjective: Other (Overall stable. Currently on high flow at 100%.) Physical Examination - Vital Signs Temperature: 97.8 F Blood Pressure: 125/56 Pulse: 57 Respirations: 33 Pulse Ox (%): 95 Assessment & Plan Discharge Plan: Home Plan to discharge in: Greater than 2 days Physician Review Additional Text: COVID: Positive, unvaccinated Chest x-ray: FINDINGS: Portable technique limits examination quality. Elevation of the left hemidiaphragm is seen without clear etiology. There is [id number] interstitial lung opacities present bilaterally, greater on the left, likely representing infection/bronchitis. The heart is mildly prominent in size. No displaced fractures. CT scan: COMPARISON: No comparisons FINDINGS: Chest Wall: No suspicious thyroid nodules or pathologic lymphadenopathy. Lungs: Patchy bilateral ground-glass and mildly consolidative airspace disease. Pleura: No significant effusions or pneumothorax. Mediastinum/rosaura: Bilateral hilar adenopathy. This is likely reactive. Pulmonary arteries/Aorta: No filling defect identified. No aortic aneurysm. Heart: No significant pericardial effusion. Normal heart size. Upper abdomen: No acute abnormality. Bones: No acute abnormality. IMPRESSION: Negative for pulmonary embolism. Moderate bilateral airspace disease in a pattern that most likely represents multifocal pneumonia, including Covid-19. Follow up CXR: COMPARISON: Chest Single View dated 05/24/2021; Chest Single View dated 05/21/2021 FINDINGS: Similar widespread interstitial airspace disease compared with 05/24/2021. The heart size is within normal limits.No acute osseous abnormality. No significant pleural effusions or pneumothorax. IMPRESSION: No change compared with 05/24/2021 with bilateral widespread airspace disease that likely represents a Covid-19 pneumonia. Physical Exam: GENERAL: The patient is a well-developed, well-nourished, in no apparent distress. Alert and oriented x3. VITAL SIGNS: Reviewed HEENT: Extraocular movements intact. Nares patent. NECK: Supple. No carotid bruits. No lymphadenopathy or thyromegaly. LUNGS: Decreased bilateral. Currently on high flow at 100%. HEART: Regular rate and rhythm on telemetry ABDOMEN: Soft, nontender, and nondistended. Positive bowel sounds. No hepatosplenomegaly was noted. EXTREMITIES: Without any cyanosis, clubbing, rash, lesions or peripheral edema. NEUROLOGIC: The patient is oriented to person, place and time. Strength and sensation are grossly intact. Face is symmetric. SKIN: Normal color, turgor and temperature. No ulcerations or rashes noted. Impression: Shortness of breath secondary to bilateral Covid pneumonia with hypoxia, unvaccinated with likely underlying COPD Hyperlipidemia Plan: Shortness of breath secondary to bilateral Covid pneumonia with hypoxia, unvaccinated with likely underlying COPD: Patient stable. Continue high flow at 100%. Continue to wean off to maintain sats above 93%. Continue IV steroids, supplements. We will try to qualify for baricitinib. Encourage ambulation. Encourage incentive spirometer and proning. Continue with pulmonology recommendations. Will monitor closely. Monitor and recheck lab closely. CRP and ferritin improved. We will add Rocephin due to slight increase in white count. This is to cover for opportunistic infection. I will turn to service over to the hospitalist team tomorrow. I will go plan of care with him. Hyperlipidemia: Continue Crestor Code Status: Full Code DVT prophylaxis: Xarelto Advanced Care Planning-30 minutes: Home at discharge Time Spent Managing Pts Care (In Minutes): 55
--- NOTE | 2021-05-25 07:53 | RAD REPORT ---
EXAM DESCRIPTION: RAD - Chest Single View - 05/25/2021 7:24 am CLINICAL HISTORY: follow up COVID COMPARISON: Chest Single View dated 05/24/2021; Chest Single View dated 05/21/2021 FINDINGS: Similar widespread interstitial airspace disease compared with 05/24/2021. The heart size is within normal limits.No acute osseous abnormality. No significant pleural effusions or pneumothora x. IMPRESSION: No change compared with 05/24/2021 with bilateral widespread airspace disease that likel y represents a Covid-19 pneumonia.
[2021-05-25] MEDS: ARFORMOTEROL TARTRATE 15 MCG/2 ML VIAL.NEB NEB SCH ×2 (08:46→20:20)
[2021-05-25] MEDS: THIAMINE HCL 100 MG TABLET PO SCH ×2 (09:00→21:00)
[2021-05-25] MEDS: ZINC SULFATE 220 MG CAP PO SCH (09:00)
[2021-05-25] MEDS: VITAMIN D 1000 UNIT TAB PO SCH (09:00)
[2021-05-25] MEDS: ASPIRIN EC 81 MG TAB PO SCH (09:00)
[2021-05-25] MEDS: FAMOTIDINE 20 MG TAB PO SCH ×2 (09:00→21:00)
[2021-05-25] MEDS: METHYLPREDNISOLONE 125 MG INJ IV SCH ×3 (09:00→21:00)
[2021-05-25] MEDS: ASCORBIC ACID 500 MG TABLET PO SCH ×4 (09:00→21:00)
[2021-05-25] MEDS ORDERED: ARFORMOTEROL TARTRATE 15 MCG/2 ML VIAL.NEB ONE ×2 (09:05→20:45)
[2021-05-25] MEDS ORDERED: ASPIRIN EC 81 MG TAB PO ONE (09:50)
[2021-05-25] MEDS ORDERED: ASCORBIC ACID 500 MG TABLET ONE ×4 (09:50→21:24)
[2021-05-25] MEDS ORDERED: THIAMINE HCL 100 MG TABLET ONE ×2 (09:50→21:24)
[2021-05-25] MEDS ORDERED: METHYLPREDNISOLONE 125 MG INJ ONE (09:50)
[2021-05-25] MEDS ORDERED: FAMOTIDINE 20 MG TAB ONE ×2 (09:51→21:24)
[2021-05-25] MEDS ORDERED: ZINC SULFATE 220 MG CAP ONE (10:17)
[2021-05-25] MEDS ORDERED: VITAMIN D 1000 UNIT TAB ONE (10:17)
--- NOTE | 2021-05-25 12:28 | P.PN ---
Subjective Date of Service: 05/25/21 Primary Care Provider: Konrad Delgado NP Chief Complaint: Resp failure Not doign well on 100% Fio2 Review of Systems General: Weakness Respiratory: Shortness of Breath Physical Examination - Vital Signs Temperature: 97.9 F Blood Pressure: 110/80 Pulse: 64 Respirations: 22 Pulse Ox (%): 95 - Physical Exam General: Alert, Cooperative, Mild distress Assessment & Plan - Problems (Diagnosis) (1) Pneumonia due to COVID-19 virus Current Visit: Yes Status: Acute Plan: Resp failure NC CW present TX. ex pneumonia
[2021-05-25] MEDS: CEFTRIAXONE/SWI 1gm 1 GM/10 ML SYR IV SCH (14:00)
[2021-05-25] MEDS ORDERED: METHYLPREDNISOLONE 40 MG INJ ONE ×2 (14:42→21:24)
[2021-05-25] MEDS ORDERED: CEFTRIAXONE/SWI 1gm 1 GM/10 ML SYR ONE (14:42)
[2021-05-25] MEDS: RIVAROXABAN 20 MG TABLET PO SCH (17:00)
[2021-05-25] MEDS: ROSUVASTATIN 10 MG TAB PO SCH (21:00)
[2021-05-26 04:46] LABS: Absolute Lymphocytes (CBC) 0.6 K/uL (0.7-4.9); Basophils % 0.1 % (0-1.3); Hematocrit 45.2 % (39.6-49.0); Lymphocytes % 3.9 % (15.3-44.8); MPV 7.9 fL (7.6-11.3); RBC Red Blood Cell Count 4.91 M/uL (4.33-5.43)
[2021-05-26 05:05] LABS: Albumin 2.7 g/dL (3.4-5.0); Bilirubin Total 0.6 mg/dL (0.2-1.0); C-Reactive Protein 7.71 mg/L (<3.00); Ferritin 1857.1 ng/mL (26-388); Magnesium 3.1 mg/dL (1.8-2.4); Potassium 4.8 mmol/L (3.5-5.1); Protein, Total 6.4 g/dL (6.4-8.2)
[2021-05-26] MEDS: ARFORMOTEROL TARTRATE 15 MCG/2 ML VIAL.NEB NEB SCH ×2 (08:00→20:15)
--- NOTE | 2021-05-26 08:13 | RAD REPORT ---
EXAM DESCRIPTION: [place] Single View05/26/2021 7:10 am CLINICAL HISTORY: Cough COMPARISON: May 2021 FINDINGS: No significant change diffuse bilateral pulmonary opacities. Left hemidiaphragm remains el evated. Heart is normal size IMPRESSION: No change in diffuse bilateral pulmonary opacities probably pneumonia
[2021-05-26] MEDS ORDERED: METHYLPREDNISOLONE 125 MG INJ ONE ×3 (08:44→21:40)
[2021-05-26] MEDS ORDERED: FAMOTIDINE 20 MG/2 ML VIAL IV ONE (08:44)
[2021-05-26] MEDS ORDERED: CEFTRIAXONE/SWI 1gm 1 GM/10 ML SYR ONE (08:44)
[2021-05-26] MEDS ORDERED: ASPIRIN 81 MG CHEWABLE TABLET ONE (08:44)
[2021-05-26] MEDS ORDERED: ASCORBIC ACID 500 MG TABLET ONE ×4 (08:44→21:41)
[2021-05-26] MEDS ORDERED: THIAMINE HCL 100 MG TABLET ONE ×2 (08:44→21:41)
[2021-05-26] MEDS ORDERED: VITAMIN D 1000 UNIT TAB ONE (08:44)
[2021-05-26] MEDS: VITAMIN D 1000 UNIT TAB PO SCH (09:00)
[2021-05-26] MEDS: THIAMINE HCL 100 MG TABLET PO SCH ×2 (09:00→21:36)
[2021-05-26] MEDS: ZINC SULFATE 220 MG CAP PO SCH (09:00)
[2021-05-26] MEDS: FAMOTIDINE 20 MG TAB PO SCH ×2 (09:00→21:36)
[2021-05-26] MEDS: CEFTRIAXONE/SWI 1gm 1 GM/10 ML SYR IV SCH (09:00)
[2021-05-26] MEDS: ASCORBIC ACID 500 MG TABLET PO SCH ×4 (09:00→21:37)
[2021-05-26] MEDS: METHYLPREDNISOLONE 125 MG INJ IV SCH ×3 (09:00→21:37)
[2021-05-26] MEDS: ASPIRIN EC 81 MG TAB PO SCH (09:00)
[2021-05-26] MEDS: RIVAROXABAN 20 MG TABLET PO SCH (17:00)
--- NOTE | 2021-05-26 18:05 | P.PN ---
Subjective Date of Service: 05/26/21 Subjective: No new changes Cough and congestion and tachypnea; Review of Systems 10-point ROS is otherwise unremarkable Physical Examination - Vital Signs Temperature: 98.0 F Blood Pressure: 146/76 Pulse: 63 Respirations: 26 Pulse Ox (%): 95 - Physical Exam General: Alert, In no apparent distress, Oriented x3 Neck: Other (no crepitus) Respiratory: Diminished Cardiovascular: Regular rate/rhythm, Normal S1 S2 Gastrointestinal: Normal bowel sounds, No tenderness Musculoskeletal: No tenderness Neurological: Normal speech, Normal tone, Normal affect - Studies Microbiology Data (last 24 hrs): 05/21/21 11:10 Blood - Blood Aerobic Blood Culture - Final No growth in 5 days. 05/21/21 11:10 Blood - Blood Anaerobic Blood Culture - Final No growth in 5 days. 05/21/21 10:47 Blood - Blood Aerobic Blood Culture - Final No growth in 5 days. 05/21/21 10:47 Blood - Blood Anaerobic Blood Culture - Final No growth in 5 days. Medications List Reviewed: Yes Assessment & Plan - Problems (Diagnosis) (1) Pneumonia due to COVID-19 virus Current Visit: Yes Status: Acute - Plan PLAN: 1. Steroids, LABA, anticoagulation 2. Supportive care 3. AIRVO: 40/100; sats in the low 90s - Advance Directives Does patient have a Living Will: Yes Does patient have a Durable POA for Healthcare: No - Code Status/Comfort Care Code Status Assessed: Yes Code Status: Full Code Critical Care: No Time Spent Managing PTS Care (In Minutes): 30
[2021-05-26] MEDS ORDERED: ARFORMOTEROL TARTRATE 15 MCG/2 ML VIAL.NEB ONE (20:38)
[2021-05-26] MEDS ORDERED: FUROSEMIDE 20 MG/ 2ML VIAL IV ONE (21:28)
--- NOTE | 2021-05-26 21:28 | P.PN ---
Subjective Date of Service: 05/26/21 Primary Care Provider: Konrad Delgado NP Chief Complaint: resp failure still on high concentration of Fio2 Review of Systems General: Weakness Respiratory: Shortness of Breath Physical Examination - Vital Signs Temperature: 98.0 F Blood Pressure: 146/76 Pulse: 63 Respirations: 26 Pulse Ox (%): 95 - Physical Exam General: Alert, Cooperative, Mild distress - Studies Microbiology Data (last 24 hrs): 05/21/21 11:10 Blood - Blood Aerobic Blood Culture - Final No growth in 5 days. 05/21/21 11:10 Blood - Blood Anaerobic Blood Culture - Final No growth in 5 days. 05/21/21 10:47 Blood - Blood Aerobic Blood Culture - Final No growth in 5 days. 05/21/21 10:47 Blood - Blood Anaerobic Blood Culture - Final No growth in 5 days. Medications List Reviewed: Yes Assessment & Plan - Problems (Diagnosis) (1) Pneumonia due to COVID-19 virus Current Visit: Yes Status: Acute Plan: Resp failure Not doignwell still requiring high Con Fio2/ Actemera/ Lasi 20 mg IV
[2021-05-26] MEDS: ROSUVASTATIN 10 MG TAB PO SCH (21:37)
[2021-05-26] MEDS ORDERED: FAMOTIDINE 20 MG TAB ONE (21:41)
[2021-05-26] MEDS: BENZONATATE 100 MG CAP PO PRN (21:49)
[2021-05-26] MEDS ORDERED: BENZONATATE 100 MG CAP PO ONE (22:08)
[2021-05-26] MEDS ORDERED: FUROSEMIDE 20 MG/ 2ML VIAL ONE (22:08)
[2021-05-27 05:13] LABS: Absolute Lymphocytes (CBC) 0.6 K/uL (0.7-4.9); Basophils % 0.1 % (0-1.3); Hematocrit 46.5 % (39.6-49.0); Lymphocytes % 4.4 % (15.3-44.8); MPV 7.8 fL (7.6-11.3); RBC Red Blood Cell Count 5.03 M/uL (4.33-5.43)
[2021-05-27 05:30] LABS: Albumin 2.7 g/dL (3.4-5.0); Bilirubin Total 0.8 mg/dL (0.2-1.0); C-Reactive Protein 7.54 mg/L (<3.00); Ferritin 1810.6 ng/mL (26-388); Protein, Total 6.7 g/dL (6.4-8.2)
[2021-05-27 05:45] LABS: Potassium 4.5 mmol/L (3.5-5.1)
--- NOTE | 2021-05-27 07:21 | RAD REPORT ---
EXAM DESCRIPTION: RAD - Chest Single View - 05/27/2021 7:04 am CLINICAL HISTORY: follow up COVID COMPARISON: May 26May 25 TECHNIQUE: AP portable chest image was obtained 05/27/2021 7:04 am . FINDINGS: Interstitial and alveolar opacities are not clearly different from prior imaging. There re bereket left hemidiaphragm elevation. Trachea is in the midline. No new tube or line identified. Heart and vasculature are normal. No measurable pleural effusion and no pneumothorax. No acute bony abnormality seen. No acute aortic findings suspected. IMPRESSION: Stable chest examination as detailed.
--- NOTE | 2021-05-27 07:26 | P.PN ---
Date of Service: 05/27/21 Subjective Subjective: Dyspnea worsening Review of Systems 10-point ROS is otherwise unremarkable Physical Examination - Vital Signs reviewed - Physical Exam General: Alert, In no apparent distress, Oriented x3 Neck: Other (no crepitus) Respiratory: Diminished Cardiovascular: Regular rate/rhythm, Normal S1 S2 Gastrointestinal: Normal bowel sounds, No tenderness Neurological: Normal speech, Normal tone, Normal affect Assessment & Plan - Problems (Diagnosis) (1) Pneumonia due to COVID-19 virus Current Visit: Yes Status: Acute - Plan Continue with plan of care as mentioned below: 1. Steroids, LABA, anticoagulation 2. Supportive care 3. bipap @100%; sats in the low 90s
[2021-05-27] MEDS: ARFORMOTEROL TARTRATE 15 MCG/2 ML VIAL.NEB NEB SCH ×2 (08:00→20:20)
[2021-05-27] MEDS ORDERED: LORazepam 2 MG/ML VIAL ONE (08:32)
[2021-05-27] MEDS ORDERED: ARFORMOTEROL TARTRATE 15 MCG/2 ML VIAL.NEB ONE ×2 (08:59→20:01)
[2021-05-27] MEDS: ASPIRIN EC 81 MG TAB PO SCH (09:00)
[2021-05-27] MEDS: VITAMIN D 1000 UNIT TAB PO SCH (09:00)
[2021-05-27] MEDS: ASCORBIC ACID 500 MG TABLET PO SCH ×4 (09:00→21:00)
[2021-05-27] MEDS: FAMOTIDINE 20 MG TAB PO SCH ×2 (09:00→21:00)
[2021-05-27] MEDS: METHYLPREDNISOLONE 125 MG INJ IV SCH ×3 (09:00→21:00)
[2021-05-27] MEDS: CEFTRIAXONE/SWI 1gm 1 GM/10 ML SYR IV SCH (09:00)
[2021-05-27] MEDS: ZINC SULFATE 220 MG CAP PO SCH (09:00)
[2021-05-27] MEDS: THIAMINE HCL 100 MG TABLET PO SCH ×2 (09:00→21:00)
[2021-05-27] MEDS ORDERED: CEFTRIAXONE/SWI 1gm 1 GM/10 ML SYR ONE (09:58)
[2021-05-27] MEDS ORDERED: METHYLPREDNISOLONE 125 MG INJ ONE ×2 (09:58→15:23)
[2021-05-27] MEDS ORDERED: TOCILIZUMAB 800 MG in NA CHLORIDE 0.9% 60 ML IV ONE (10:00)
[2021-05-27] MEDS ORDERED: ASCORBIC ACID 500 MG TABLET ONE ×2 (10:31→21:29)
[2021-05-27] MEDS ORDERED: ASPIRIN EC 81 MG TAB PO ONE (10:31)
[2021-05-27] MEDS ORDERED: FAMOTIDINE 20 MG TAB ONE ×2 (10:31→21:29)
[2021-05-27] MEDS ORDERED: ZINC SULFATE 220 MG CAP ONE (10:31)
[2021-05-27] MEDS ORDERED: VITAMIN D 1000 UNIT TAB ONE (10:32)
[2021-05-27] MEDS ORDERED: THIAMINE HCL 100 MG TABLET ONE (10:34)
[2021-05-27] MEDS: RIVAROXABAN 20 MG TABLET PO SCH (17:00)
[2021-05-27] MEDS ORDERED: IPRATROPIUM BROM 0.5MG/2.5ML ONE (20:01)
[2021-05-27] MEDS: IPRATROPIUM BROM 0.5MG/2.5ML NEB PRN (20:20)
[2021-05-27] MEDS: ROSUVASTATIN 10 MG TAB PO SCH (21:00)
[2021-05-27] MEDS ORDERED: METHYLPREDNISOLONE 40 MG INJ ONE (21:29)
[2021-05-28 05:33] LABS: Albumin 2.7 g/dL (3.4-5.0); Bilirubin Total 0.9 mg/dL (0.2-1.0); C-Reactive Protein 9.46 mg/L (<3.00); Ferritin 1646.3 ng/mL (26-388); Magnesium 3.2 mg/dL (1.8-2.4); Potassium 4.9 mmol/L (3.5-5.1); Protein, Total 6.5 g/dL (6.4-8.2)
[2021-05-28 06:09] LABS: Absolute Lymphocytes (CBC) 0.7 K/uL (0.7-4.9); Hematocrit 46.6 % (39.6-49.0); Lymphocytes % 5.9 % (15.3-44.8); MPV 7.9 fL (7.6-11.3); RBC Red Blood Cell Count 5.07 M/uL (4.33-5.43)
[2021-05-28] MEDS: FAMOTIDINE 20 MG TAB PO SCH ×3 (07:43→21:36)
[2021-05-28] MEDS: ASPIRIN EC 81 MG TAB PO SCH ×2 (07:43→08:45)
[2021-05-28] MEDS: THIAMINE HCL 100 MG TABLET PO SCH ×3 (07:43→21:36)
[2021-05-28] MEDS: VITAMIN D 1000 UNIT TAB PO SCH ×2 (07:44→08:45)
[2021-05-28] MEDS: ASCORBIC ACID 500 MG TABLET PO SCH ×5 (07:44→21:36)
[2021-05-28] MEDS: ZINC SULFATE 220 MG CAP PO SCH ×2 (07:44→08:44)
[2021-05-28] MEDS ORDERED: ARFORMOTEROL TARTRATE 15 MCG/2 ML VIAL.NEB ONE (07:53)
[2021-05-28] MEDS: ARFORMOTEROL TARTRATE 15 MCG/2 ML VIAL.NEB NEB SCH ×2 (08:24→19:50)
[2021-05-28] MEDS: CEFTRIAXONE/SWI 1gm 1 GM/10 ML SYR IV SCH (08:43)
[2021-05-28] MEDS: METHYLPREDNISOLONE 125 MG INJ IV SCH ×3 (08:43→21:36)
[2021-05-28] MEDS ORDERED: METHYLPREDNISOLONE 40 MG INJ ONE (08:49)
[2021-05-28] MEDS ORDERED: CEFTRIAXONE/SWI 1gm 1 GM/10 ML SYR ONE (08:49)
[2021-05-28] MEDS ORDERED: ASCORBIC ACID 500 MG TABLET ONE (08:54)
[2021-05-28] MEDS ORDERED: ZINC SULFATE 220 MG CAP ONE (08:54)
[2021-05-28] MEDS ORDERED: ASPIRIN EC 81 MG TAB PO ONE (08:54)
[2021-05-28] MEDS ORDERED: THIAMINE HCL 100 MG TABLET ONE (08:55)
[2021-05-28] MEDS ORDERED: VITAMIN D 1000 UNIT TAB ONE (08:55)
[2021-05-28] MEDS ORDERED: FAMOTIDINE 20 MG TAB ONE (08:55)
--- NOTE | 2021-05-28 16:34 | P.PN ---
Date of Service: 05/28/21 Subjective Subjective: No new complaints. Still with significant shortness of breath. Placed on non- rebreather and he is doing well with saturations in the 95 percentile. Review of Systems 10-point ROS is otherwise unremarkable Physical Examination - Vital Signs reviewed - Physical Exam General: Alert, In no apparent distress, Oriented x3 Neck: Other (no crepitus) Respiratory: Diminished Cardiovascular: Regular rate/rhythm, Normal S1 S2 Gastrointestinal: Normal bowel sounds, No tenderness Neurological: Normal speech, Normal tone, Normal affect Assessment & Plan - Problems (Diagnosis) (1) Pneumonia due to COVID-19 virus Current Visit: Yes Status: Acute - Plan Continue with plan of care as mentioned below: 1. Steroids, LABA, anticoagulation 2. Supportive care 3. Continue with [id number] oxygen saturation in the mid 90s. Patient seems to be more comfortable 4. GI and DVT prophylaxis
[2021-05-28] MEDS: RIVAROXABAN 20 MG TABLET PO SCH (16:50)
[2021-05-28] MEDS: ROSUVASTATIN 10 MG TAB PO SCH (21:36)
[2021-05-29] MEDS ORDERED: LORAZEPAM 0.5 MG TABLET PO ONE (01:51)
[2021-05-29] MEDS: ZINC SULFATE 220 MG CAP PO SCH (08:05)
[2021-05-29] MEDS: CEFTRIAXONE/SWI 1gm 1 GM/10 ML SYR IV SCH (08:05)
[2021-05-29] MEDS: VITAMIN D 1000 UNIT TAB PO SCH (08:05)
[2021-05-29] MEDS: METHYLPREDNISOLONE 125 MG INJ IV SCH ×3 (08:05→21:33)
[2021-05-29] MEDS: FAMOTIDINE 20 MG TAB PO SCH ×2 (08:06→21:33)
[2021-05-29] MEDS: THIAMINE HCL 100 MG TABLET PO SCH ×2 (08:06→21:33)
[2021-05-29] MEDS: ASCORBIC ACID 500 MG TABLET PO SCH ×4 (08:06→21:33)
[2021-05-29] MEDS: ASPIRIN EC 81 MG TAB PO SCH (08:06)
[2021-05-29] MEDS: ARFORMOTEROL TARTRATE 15 MCG/2 ML VIAL.NEB NEB SCH ×2 (09:25→20:00)
[2021-05-29] MEDS: RIVAROXABAN 20 MG TABLET PO SCH (17:11)
[2021-05-29] MEDS: ROSUVASTATIN 10 MG TAB PO SCH (21:33)
[2021-05-30] MEDS: ASCORBIC ACID 500 MG TABLET PO SCH ×4 (08:52→19:34)
[2021-05-30] MEDS: FAMOTIDINE 20 MG TAB PO SCH ×2 (08:52→19:34)
[2021-05-30] MEDS: THIAMINE HCL 100 MG TABLET PO SCH ×2 (08:52→19:34)
[2021-05-30] MEDS: VITAMIN D 1000 UNIT TAB PO SCH (08:52)
[2021-05-30] MEDS: METHYLPREDNISOLONE 125 MG INJ IV SCH ×3 (08:52→19:33)
[2021-05-30] MEDS: ZINC SULFATE 220 MG CAP PO SCH (08:52)
[2021-05-30] MEDS: ASPIRIN EC 81 MG TAB PO SCH (08:52)
[2021-05-30] MEDS: CEFTRIAXONE/SWI 1gm 1 GM/10 ML SYR IV SCH (08:52)
[2021-05-30 08:56] LABS: Potassium 5.2 mmol/L (3.5-5.1)
[2021-05-30 09:00] LABS: MPV 7.6 fL (7.6-11.3); RBC Red Blood Cell Count 4.94 M/uL (4.33-5.43)
[2021-05-30] MEDS: ARFORMOTEROL TARTRATE 15 MCG/2 ML VIAL.NEB NEB SCH ×2 (09:02→20:00)
[2021-05-30 09:49] LABS: Blood Morphology Comment NOT SEEN (NOT SEEN); Platelet Estimate ADEQ
--- NOTE | 2021-05-30 10:41 | P.PN ---
Date of Service: 05/29/21 Subjective Subjective: Patient still significantly short of breath at times. Recovering very slowly. Thankfully concerning for restrictive lung issues. Review of Systems 10-point ROS is otherwise unremarkable Physical Examination - Vital Signs reviewed - Physical Exam General: Alert, In no apparent distress, Oriented x3 Neck: Other (no crepitus) Respiratory: Diminished Cardiovascular: Regular rate/rhythm, Normal S1 S2 Gastrointestinal: Normal bowel sounds, No tenderness Neurological: Normal speech, Normal tone, Normal affect Assessment & Plan - Problems (Diagnosis) (1) Pneumonia due to COVID-19 virus Current Visit: Yes Status: Acute - Plan Continue with plan of care as mentioned below: 1. Steroids, LABA, anticoagulation 2. Supportive care 3. Continue BiPAP support; slowly wean down oxygen level 4. GI and DVT prophylaxis
[2021-05-30] MEDS: RIVAROXABAN 20 MG TABLET PO SCH (16:47)
[2021-05-30] MEDS: ROSUVASTATIN 10 MG TAB PO SCH (19:33)
[2021-05-30] MEDS: IPRATROPIUM BROM 0.5MG/2.5ML NEB PRN (20:10)
--- NOTE | 2021-05-30 21:30 | P.PN ---
Subjective Date of Service: 05/30/21 Primary Care Provider: Konrad Delgado NP Chief Complaint: resp failure StillSOB on HF Review of Systems General: Weakness Respiratory: Shortness of Breath Physical Examination - Vital Signs Temperature: 97.4 F Blood Pressure: 112/69 Pulse: 60 Respirations: 20 Pulse Ox (%): 95 - Studies Medications List Reviewed: Yes Assessment & Plan - Problems (Diagnosis) (1) Pneumonia due to COVID-19 virus Current Visit: Yes Status: Acute Plan: Resp failure/SP Actemra. CW tritrate O2 Down/ WBCstable
--- NOTE | 2021-05-31 07:37 | P.PN ---
Date of Service: 05/30/21 Subjective Subjective: Patient still remains hypoxic.; clinically though he appears to be doing well. He is currently on wall oxygen.Patient is anywhere between 12-15 L. he has made some significant improvements over the last 24-48 hr. We are still working on LTAC placement. If he continues to improve at this rate then maybe we can work on SNFplacement instead. Review of Systems 10-point ROS is otherwise unremarkable Physical Examination - Vital Signs reviewed - Physical Exam General: Alert, In no apparent distress, Oriented x3 Neck: Other (no crepitus) Respiratory: Diminished Cardiovascular: Regular rate/rhythm, Normal S1 S2 Gastrointestinal: Normal bowel sounds, No tenderness Neurological: Normal speech, Normal tone, Normal affect Assessment & Plan - Problems (Diagnosis) (1) Pneumonia due to COVID-19 virus Current Visit: Yes Status: Acute - Plan Continue with plan of care as mentioned below: 1. Steroids, LABA, anticoagulation; 2. Supportive care; will work on LTAC but possible nursing home facility if patient improves 3. Currently on wall oxygen at 12-15 L 4. GI and DVT prophylaxis
[2021-05-31] MEDS: ASPIRIN EC 81 MG TAB PO SCH (07:59)
[2021-05-31] MEDS: ASCORBIC ACID 500 MG TABLET PO SCH ×4 (08:00→20:51)
[2021-05-31] MEDS: THIAMINE HCL 100 MG TABLET PO SCH ×2 (08:00→20:50)
[2021-05-31] MEDS: VITAMIN D 1000 UNIT TAB PO SCH (08:00)
[2021-05-31] MEDS: METHYLPREDNISOLONE 125 MG INJ IV SCH (08:00)
[2021-05-31] MEDS: ZINC SULFATE 220 MG CAP PO SCH (08:00)
[2021-05-31] MEDS: FAMOTIDINE 20 MG TAB PO SCH ×2 (08:00→20:50)
[2021-05-31] MEDS: CEFTRIAXONE/SWI 1gm 1 GM/10 ML SYR IV SCH (08:01)
[2021-05-31] MEDS: ARFORMOTEROL TARTRATE 15 MCG/2 ML VIAL.NEB NEB SCH ×2 (08:50→21:40)
[2021-05-31] MEDS: IPRATROPIUM BROM 0.5MG/2.5ML NEB PRN (08:50)
[2021-05-31] MEDS: ALBUTEROL 2.5 MG/3 ML NEB SOL NEB PRN (08:50)
--- NOTE | 2021-05-31 11:05 | P.PN ---
Subjective Date of Service: 05/31/21 Primary Care Provider: Konrad Delgado NP Chief Complaint: resp failure Subjective: No new changes (Seen today, feels better, on weaning O2 to 10 L yet Off BiPAP) Physical Examination - Vital Signs Temperature: 97.1 F Blood Pressure: 132/76 Pulse: 73 Respirations: 28 Pulse Ox (%): 97 - Physical Exam General: Alert, In no apparent distress, Oriented x3 HEENT: Atraumatic, Normocephalic Neck: Supple, 2+ carotid pulse no bruit Respiratory: Diminished Cardiovascular: No edema, Normal pulses, Regular rate/rhythm, Normal S1 S2 Gastrointestinal: Normal bowel sounds, Soft and benign, Non-distended Musculoskeletal: No clubbing, No swelling - Studies Medications List Reviewed: Yes Assessment And Plan Physician Review Additional Text: Impression: Shortness of breath secondary to bilateral Covid pneumonia with hypoxia, unvaccinated with likely underlying COPD Hyperlipidemia Plan: Continue to wean O2 Follow-up plan for LTAC placement Continue IV steroids Code Status: Full Code DVT prophylaxis: Xarelto Advanced Care Planning-30 minutes: Home at discharge
[2021-05-31] MEDS: RIVAROXABAN 20 MG TABLET PO SCH (16:04)
[2021-05-31] MEDS: ROSUVASTATIN 10 MG TAB PO SCH (20:51)
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
[2021-06-01 08:31] LABS: Absolute Lymphocytes (CBC) 1.2 K/uL (0.7-4.9); Basophils % 0.2 % (0-1.3); Hematocrit 48.4 % (39.6-49.0); Lymphocytes % 7.1 % (15.3-44.8); MPV 7.8 fL (7.6-11.3); RBC Red Blood Cell Count 5.23 M/uL (4.33-5.43)
[2021-06-01] MEDS: ASPIRIN EC 81 MG TAB PO SCH (08:34)
[2021-06-01] MEDS: VITAMIN D 1000 UNIT TAB PO SCH (08:34)
[2021-06-01] MEDS: THIAMINE HCL 100 MG TABLET PO SCH ×2 (08:35→20:14)
[2021-06-01] MEDS: ASCORBIC ACID 500 MG TABLET PO SCH ×4 (08:35→20:15)
[2021-06-01] MEDS: ZINC SULFATE 220 MG CAP PO SCH (08:35)
[2021-06-01] MEDS: FAMOTIDINE 20 MG TAB PO SCH ×2 (08:35→20:14)
[2021-06-01] MEDS: BENZONATATE 100 MG CAP PO PRN ×2 (08:43→15:46)
[2021-06-01 08:56] LABS: ALT/SGPT 90 U/L (12-78); AST/SGOT 51 U/L (15-37); Alkaline Phosphatase 91 U/L (45-117); BUN Blood Urea Nitrogen 32 mg/dL (7-18); Bicarbonate 30 mmol/L (21-32); Bilirubin Total 1.4 mg/dL (0.2-1.0); Ferritin 1757.7 ng/mL (26-388); Glucose Level 127 mg/dL (74-106); Magnesium 2.3 mg/dL (1.8-2.4); Potassium 4.8 mmol/L (3.5-5.1); Sodium Level 139 mmol/L (136-145)
[2021-06-01 09:03] LABS: C-Reactive Protein < 2.90 mg/L (<3.00)
[2021-06-01] MEDS: ARFORMOTEROL TARTRATE 15 MCG/2 ML VIAL.NEB NEB SCH (09:34)
--- NOTE | 2021-06-01 10:01 | RAD REPORT ---
EXAM DESCRIPTION: RAD - Chest Single View - 06/01/2021 9:53 am CLINICAL HISTORY: follow up covid COMPARISON: <Comparisons> FINDINGS: Widespread bilateral airspace disease which is not significantly changed compared with 07/2021. The heart size is within normal limits.No acute osseous abnormality. No significant pleural effusions or pneumothorax. IMPRESSION: Widespread bilateral airspace disease consistent with multifocal pneumonia that is not s ignificantly changed from prior.
[2021-06-01] MEDS ORDERED: NA CHLORIDE 0.9% 500 ML IV ONE ×2 (12:07→20:58)
--- NOTE | 2021-06-01 12:22 | P.PN ---
Subjective Date of Service: 06/01/21 Primary Care Provider: Konrad Delgado NP Chief Complaint: resp failure Nc Still hypoxic Review of Systems General: Weakness Respiratory: Shortness of Breath Physical Examination - Vital Signs Temperature: 97.0 F Blood Pressure: 100/51 Pulse: 88 Respirations: 22 Pulse Ox (%): 85 - Physical Exam General: Alert, Oriented x3, Cooperative - Studies Medications List Reviewed: Yes Assessment & Plan - Problems (Diagnosis) (1) Pneumonia due to COVID-19 virus Current Visit: Yes Status: Acute Plan: Resp failure CW weaning down O2/labs CXRY rev/CXRY no change/DC all nebs
[2021-06-01] MEDS: CEFTRIAXONE/SWI 1gm 1 GM/10 ML SYR IV SCH (12:39)
[2021-06-01] MEDS: RIVAROXABAN 20 MG TABLET PO SCH (16:10)
[2021-06-01] MEDS: ROSUVASTATIN 10 MG TAB PO SCH (20:14)
[2021-06-01] MEDS: METHYLPREDNISOLONE 40 MG INJ IV SCH (20:15)
--- NOTE | 2021-06-02 06:18 | P.PN ---
Subjective Date of Service: 06/02/21 Primary Care Provider: Konrad Delgado NP Chief Complaint: resp failure Subjective: Other (Patient stable. Currently on CPAP at 65%. Poor oral intake noted) Physical Examination - Vital Signs Temperature: 97.3 F Blood Pressure: 101/58 Pulse: 93 Respirations: 14 Pulse Ox (%): 94 - Studies Medications List Reviewed: Yes Assessment & Plan Discharge Plan: LTAC Plan to discharge in: 48 Hours Physician Review Additional Text: COVID: Positive, unvaccinated Chest x-ray: FINDINGS: Portable technique limits examination quality. Elevation of the left hemidiaphragm is seen without clear etiology. There is [id number] interstitial lung opacities present bilaterally, greater on the left, likely representing infection/bronchitis. The heart is mildly prominent in size. No displaced fractures. CT scan: COMPARISON: No comparisons FINDINGS: Chest Wall: No suspicious thyroid nodules or pathologic lymphadenopathy. Lungs: Patchy bilateral ground-glass and mildly consolidative airspace disease. Pleura: No significant effusions or pneumothorax. Mediastinum/rosaura: Bilateral hilar adenopathy. This is likely reactive. Pulmonary arteries/Aorta: No filling defect identified. No aortic aneurysm. Heart: No significant pericardial effusion. Normal heart size. Upper abdomen: No acute abnormality. Bones: No acute abnormality. IMPRESSION: Negative for pulmonary embolism. Moderate bilateral airspace disease in a pattern that most likely represents multifocal pneumonia, including Covid-19. Follow up CXR 06/01/2021: COMPARISON: <Comparisons> FINDINGS: Widespread bilateral airspace disease which is not significantly changed compared with 05/27/2021. The heart size is within normal limits.No acute osseous abnormality. No significant pleural effusions or pneumothorax. IMPRESSION: Widespread bilateral airspace disease consistent with multifocal pneumonia that is not significantly changed from prior. Physical Exam: GENERAL: The patient is a well-developed, well-nourished, in no apparent distress. Alert and oriented x3. VITAL SIGNS: Reviewed HEENT: Extraocular movements intact. Nares patent. NECK: Supple. No carotid bruits. No lymphadenopathy or thyromegaly. LUNGS: Decreased at the bases. Currently on CPAP at 65% HEART: Regular rate and rhythm on telemetry ABDOMEN: Soft, nontender, and nondistended. Positive bowel sounds. No hepatosplenomegaly was noted. EXTREMITIES: Without any cyanosis, clubbing, rash, lesions or peripheral edema. NEUROLOGIC: The patient is oriented to person, place and time. Strength and sensation are grossly intact. Face is symmetric. SKIN: Dry skin noted Impression: Shortness of breath secondary to bilateral Covid pneumonia with hypoxia, unvaccinated with likely underlying COPD Hyperlipidemia Leukocytosis Plan: Shortness of breath secondary to bilateral Covid pneumonia with hypoxia, unvaccinated with likely underlying COPD: Overall stable. Poor oral intake. Continue with CPAP and high flow. Currently on CPAP at 65%. Wean off oxygen to maintain sats above 93%. Continue IV steroid, vitamin supplementation. Will start IV fluids due to poor hydration. Encourage oral intake. Dietary to help with daily intake. Rocephin and Diflucan added due to leukocytosis and to cover for any opportunistic infection. Calcitonin negative. Continue to monitor the lab closely. Monitor CRP and ferritin. Discussed with patient about long-term acute care facility placement. Patient in agreement. Will discuss with older adult social work specialist to help with this. Hyperlipidemia: Continue Crestor 10 mg daily Leukocytosis: White count improved. Continue with Rocephin and Diflucan. Procalcitonin negative. Will monitor this closely. Case discussed with pulmonology. Code Status: Full Code DVT prophylaxis: Xarelto Advanced Care Planning-30 minutes: Patient agreeable for long-term acute care facility placement. Await approval. Time Spent Managing Pts Care (In Minutes): 55
[2021-06-02 07:14] LABS: Absolute Lymphocytes (CBC) 0.6 K/uL (0.7-4.9); Basophils % 0.2 % (0-1.3); Hematocrit 48.7 % (39.6-49.0); Lymphocytes % 3.5 % (15.3-44.8); MPV 8.4 fL (7.6-11.3)
[2021-06-02 07:25] LABS: Albumin 2.8 g/dL (3.4-5.0); Bilirubin Total 1.4 mg/dL (0.2-1.0); C-Reactive Protein 4.1 mg/L (<3.00); Ferritin 1989.7 ng/mL (26-388); Magnesium 2.4 mg/dL (1.8-2.4); Potassium 4.9 mmol/L (3.5-5.1); Protein, Total 5.6 g/dL (6.4-8.2)
[2021-06-02] MEDS: ASCORBIC ACID 500 MG TABLET PO SCH ×4 (09:37→21:25)
[2021-06-02] MEDS: METHYLPREDNISOLONE 40 MG INJ IV SCH ×2 (09:37→21:25)
[2021-06-02] MEDS: CEFTRIAXONE/SWI 1gm 1 GM/10 ML SYR IV SCH (09:37)
[2021-06-02] MEDS: THIAMINE HCL 100 MG TABLET PO SCH ×2 (09:37→21:25)
[2021-06-02] MEDS: ZINC SULFATE 220 MG CAP PO SCH (09:37)
[2021-06-02] MEDS: FAMOTIDINE 20 MG TAB PO SCH ×2 (09:37→21:25)
[2021-06-02] MEDS: FLUCONAZOLE 100 MG TAB PO SCH (09:37)
[2021-06-02] MEDS: ASPIRIN EC 81 MG TAB PO SCH (10:27)
[2021-06-02] MEDS: VITAMIN D 1000 UNIT TAB PO SCH (10:27)
[2021-06-02] MEDS: RIVAROXABAN 20 MG TABLET PO SCH (17:00)
[2021-06-02] MEDS: NACHLORIDE 0.45% 1,000 ML IV SCH (17:12)
[2021-06-02] MEDS: ENSURE HIGH PROTEIN 237 ML CAN PO SCH (21:00)
[2021-06-02] MEDS: ROSUVASTATIN 10 MG TAB PO SCH (21:26)
[2021-06-03 03:45] LABS: Absolute Lymphocytes (CBC) 0.3 K/uL (0.7-4.9); Basophils % 0.1 % (0-1.3); Hematocrit 43.6 % (39.6-49.0); MPV 8.1 fL (7.6-11.3); RBC Red Blood Cell Count 4.71 M/uL (4.33-5.43)
[2021-06-03 04:12] LABS: ALT/SGPT 72 U/L (12-78); AST/SGOT 44 U/L (15-37); Albumin 2.7 g/dL (3.4-5.0); Alkaline Phosphatase 77 U/L (45-117); BUN Blood Urea Nitrogen 30 mg/dL (7-18); Bicarbonate 30 mmol/L (21-32); Bilirubin Total 1.4 mg/dL (0.2-1.0); Ferritin 1868.9 ng/mL (26-388); Glucose Level 179 mg/dL (74-106); Magnesium 2.2 mg/dL (1.8-2.4); Potassium 5.1 mmol/L (3.5-5.1); Protein, Total 5.3 g/dL (6.4-8.2); Sodium Level 139 mmol/L (136-145)
[2021-06-03 04:41] LABS: C-Reactive Protein < 2.90 mg/L (<3.00)
[2021-06-03 05:06] LABS: Blood Morphology Comment NOT SEEN (NOT SEEN); Platelet Estimate ADEQ
--- NOTE | 2021-06-03 06:05 | P.PN ---
Subjective Date of Service: 06/03/21 Primary Care Provider: Konrad Delgado NP Chief Complaint: resp failure Subjective: Improving Physical Examination - Vital Signs Temperature: 97.6 F Blood Pressure: 119/79 Pulse: 71 Respirations: 16 Pulse Ox (%): 91 - Studies Medications List Reviewed: Yes Assessment & Plan Discharge Plan: LTAC Plan to discharge in: 48 Hours Physician Review Additional Text: COVID: Positive, unvaccinated Chest x-ray: FINDINGS: Portable technique limits examination quality. Elevation of the left hemidiaphragm is seen without clear etiology. There is [id number] interstitial lung opacities present bilaterally, greater on the left, likely representing infection/bronchitis. The heart is mildly prominent in size. No displaced fractures. CT scan: COMPARISON: No comparisons FINDINGS: Chest Wall: No suspicious thyroid nodules or pathologic lymphadenopathy. Lungs: Patchy bilateral ground-glass and mildly consolidative airspace disease. Pleura: No significant effusions or pneumothorax. Mediastinum/rosaura: Bilateral hilar adenopathy. This is likely reactive. Pulmonary arteries/Aorta: No filling defect identified. No aortic aneurysm. Heart: No significant pericardial effusion. Normal heart size. Upper abdomen: No acute abnormality. Bones: No acute abnormality. IMPRESSION: Negative for pulmonary embolism. Moderate bilateral airspace disease in a pattern that most likely represents multifocal pneumonia, including Covid-19. Follow up CXR 06/01/2021: COMPARISON: <Comparisons> FINDINGS: Widespread bilateral airspace disease which is not significantly changed compared with 05/27/2021. The heart size is within normal limits.No acute osseous abnormality. No significant pleural effusions or pneumothorax. IMPRESSION: Widespread bilateral airspace disease consistent with multifocal pneumonia that is not significantly changed from prior. Physical Exam: GENERAL: The patient is a well-developed, well-nourished, in no apparent distress. Alert and oriented x3. VITAL SIGNS: Reviewed HEENT: Extraocular movements intact. Nares patent. NECK: Supple. No carotid bruits. No lymphadenopathy or thyromegaly. LUNGS: Decreased at the bases. Currently on CPAP at 65% and 15 L per nasal cannula. HEART: Regular rate and rhythm on telemetry ABDOMEN: Soft, nontender, and nondistended. Positive bowel sounds. No hepatosplenomegaly was noted. EXTREMITIES: Without any cyanosis, clubbing, rash, lesions or peripheral edema. NEUROLOGIC: The patient is oriented to person, place and time. Strength and sensation are grossly intact. Face is symmetric. SKIN: Dry skin noted Impression: Shortness of breath secondary to bilateral Covid pneumonia with hypoxia, unvaccinated with likely underlying COPD Hyperlipidemia Leukocytosis Plan: Shortness of breath secondary to bilateral Covid pneumonia with hypoxia, unvaccinated with likely underlying COPD: Patient reports improvement. Currently on CPAP and high flow. Currently on CPAP at 65%. Wean off oxygen to maintain sats above 93%. Continue IV steroid, vitamin supplementation. Continue with IV fluids for at least 1 more day due to poor hydration. Encourage oral intake. Dietary to help with daily intake. Rocephin and Diflucan added due to leukocytosis and to cover for any opportunistic infection. Procalcitonin negative. Continue to monitor the lab closely. Monitor CRP and ferritin. Encourage incentive spirometer, proning, ambulation. Discussed with patient about long-term acute care facility placement. Patient in agreement. Await approval for long-term acute care facility placement. Hyperlipidemia: Continue Crestor 10 mg daily Leukocytosis: White count improved. Continue with Rocephin and Diflucan. Procalcitonin negative. Will monitor this closely. Case discussed with pulmonology. Code Status: Full Code DVT prophylaxis: Xarelto Advanced Care Planning-30 minutes: Patient agreeable for long-term acute care facility placement. Await approval. Time Spent Managing Pts Care (In Minutes): 55
[2021-06-03] MEDS: ENSURE HIGH PROTEIN 237 ML CAN PO SCH ×2 (09:00→20:56)
[2021-06-03] MEDS: ZINC SULFATE 220 MG CAP PO SCH (09:31)
[2021-06-03] MEDS: ASCORBIC ACID 500 MG TABLET PO SCH ×4 (09:31→20:55)
[2021-06-03] MEDS: FAMOTIDINE 20 MG TAB PO SCH ×2 (09:31→20:55)
[2021-06-03] MEDS: CEFTRIAXONE/SWI 1gm 1 GM/10 ML SYR IV SCH (09:32)
[2021-06-03] MEDS: FLUCONAZOLE 100 MG TAB PO SCH (09:32)
[2021-06-03] MEDS: VITAMIN D 1000 UNIT TAB PO SCH (09:32)
[2021-06-03] MEDS: ASPIRIN EC 81 MG TAB PO SCH (09:32)
[2021-06-03] MEDS: METHYLPREDNISOLONE 40 MG INJ IV SCH ×2 (09:32→20:56)
[2021-06-03] MEDS: THIAMINE HCL 100 MG TABLET PO SCH ×2 (09:32→20:55)
[2021-06-03] MEDS: NACHLORIDE 0.45% 1,000 ML IV SCH (18:13)
[2021-06-03] MEDS: RIVAROXABAN 20 MG TABLET PO SCH (18:15)
[2021-06-03] MEDS: ROSUVASTATIN 10 MG TAB PO SCH (20:55)
[2021-06-04 04:22] LABS: Hematocrit 40.6 % (39.6-49.0); MPV 8.4 fL (7.6-11.3); RBC Red Blood Cell Count 4.41 M/uL (4.33-5.43)
[2021-06-04 04:44] LABS: ALT/SGPT 94 U/L (12-78); AST/SGOT 43 U/L (15-37); Albumin 2.6 g/dL (3.4-5.0); Alkaline Phosphatase 68 U/L (45-117); BUN Blood Urea Nitrogen 28 mg/dL (7-18); Bicarbonate 27 mmol/L (21-32); Bilirubin Total 1.2 mg/dL (0.2-1.0); Ferritin 1556.9 ng/mL (26-388); Glucose Level 187 mg/dL (74-106); Magnesium 2.2 mg/dL (1.8-2.4); Potassium 4.8 mmol/L (3.5-5.1); Protein, Total 5.1 g/dL (6.4-8.2); Sodium Level 140 mmol/L (136-145)
[2021-06-04 04:47] LABS: C-Reactive Protein < 2.90 mg/L (<3.00)
[2021-06-04 05:04] LABS: Blood Morphology Comment NOT SEEN (NOT SEEN); Platelet Estimate ADEQ
--- NOTE | 2021-06-04 06:07 | P.PN ---
Subjective Date of Service: 06/04/21 Primary Care Provider: Konrad Delgado NP Chief Complaint: resp failure Subjective: Other (Improved. Now down to 12 L) Physical Examination - Vital Signs Temperature: 97.8 F Blood Pressure: 142/69 Pulse: 57 Respirations: 18 Pulse Ox (%): 96 - Studies Medications List Reviewed: Yes Assessment & Plan Discharge Plan: LTAC Plan to discharge in: 48 Hours Physician Review Additional Text: COVID: Positive, unvaccinated Chest x-ray: FINDINGS: Portable technique limits examination quality. Elevation of the left hemidiaphragm is seen without clear etiology. There is [id number] interstitial lung opacities present bilaterally, greater on the left, likely representing infection/bronchitis. The heart is mildly prominent in size. No displaced fractures. CT scan: COMPARISON: No comparisons FINDINGS: Chest Wall: No suspicious thyroid nodules or pathologic lymphad enopathy. Lungs: Patchy bilateral ground-glass and mildly consolidative airspace disease. Pleura: No significant effusions or pneumothorax. Mediastinum/rosaura: Bilateral hilar adenopathy. This is likely reactive. Pulmonary arteries/Aorta: No filling defect identified. No aortic aneurysm. Heart: No significant pericardial effusion. Normal heart size. Upper abdomen: No acute abnormality. Bones: No acute abnormality. IMPRESSION: Negative for pulmonary embolism. Moderate bilateral airspace disease in a pattern that most likely represents multifocal pneumonia, including Covid-19. Follow up CXR 06/01/2021: COMPARISON: <Comparisons> FINDINGS: Widespread bilateral airspace disease which is not significantly changed compared with 05/27/2021. The heart size is within normal limits.No acute osseous abnormality. No significant pleural effusions or pneumothorax. IMPRESSION: Widespread bilateral airspace disease consistent with multifocal pneumonia that is not significantly changed from prior. Physical Exam: GENERAL: The patient is a well-developed, well-nourished, in no apparent distress. Alert and oriented x3. VITAL SIGNS: Reviewed HEENT: Extraocular movements intact. Nares patent. NECK: Supple. No carotid bruits. No lymphadenopathy or thyromegaly. LUNGS: Clear anteriorly. Down to 12 L HEART: Regular rate and rhythm on telemetry ABDOMEN: Soft, nontender, and nondistended. Positive bowel sounds. No hepatosplenomegaly was noted. EXTREMITIES: Without any cyanosis, clubbing, rash, lesions or peripheral edema. NEUROLOGIC: The patient is oriented to person, place and time. Strength and sensation are grossly intact. Face is symmetric. SKIN: Dry skin noted Impression: Shortness of breath secondary to bilateral Covid pneumonia with hypoxia, unvaccinated with likely underlying COPD Hyperlipidemia Leukocytosis Plan: Shortness of breath secondary to bilateral Covid pneumonia with hypoxia, unvaccinated with likely underlying COPD: Patient reports improvement. Currently down to 12 L. Wean off oxygen to maintain sats above 93%. Continue IV steroid, vitamin supplementation. DC IV fluids. Encourage oral intake. Dietary to help with daily intake. Rocephin and Diflucan was added due to leukocytosis and to cover for any opportunistic infection. Procalcitonin negative. Continue to monitor the lab closely. Monitor CRP and ferritin. Encourage incentive spirometer, proning, ambulation. Discussed with patient about long-term acute care facility placement. Patient in agreement. Await approval for long-term acute care facility placement. Hyperlipidemia: Continue Crestor 10 mg daily Leukocytosis: White count elevated. Will monitor. Continue with Rocephin and Diflucan. Procalcitonin negative. Repeat Blood culture negative. Will monitor this closely. Case discussed with pulmonology. Code Status: Full Code DVT prophylaxis: Xarelto Advanced Care Planning-30 minutes: Patient agreeable for long-term acute care facility placement. Await approval. Time Spent Managing Pts Care (In Minutes): 55
--- NOTE | 2021-06-04 07:44 | RAD REPORT ---
EXAM DESCRIPTION: RAD - Chest Single View - 06/04/2021 5:06 am CLINICAL HISTORY: Follow-up Covid COMPARISON: Chest Single View dated 06/01/2021; Chest Single View dated 05/27/2021; Chest Single View dated 05/26/2021; Chest Single View dated 05/25/2021; Chest For Pe Angio dated 05/21/2021 FINDINGS: Moderate bilateral airspace opacities with increasing airspace disease in the left lung in particular and also at the right lung base were there is more confluence. The heart size is within n ormal limits.No acute osseous abnormality. No significant pleural effusions or pneumothorax. IMPRESSION: Moderate bilateral airspace disease consistent with multifocal pneumonia. The aeration o f the lungs has modestly worsened compared with 06/01/2021.
[2021-06-04] MEDS: ENSURE HIGH PROTEIN 237 ML CAN PO SCH ×2 (09:00→21:00)
[2021-06-04] MEDS: VITAMIN D 1000 UNIT TAB PO SCH (09:00)
[2021-06-04] MEDS: ASPIRIN EC 81 MG TAB PO SCH (09:00)
[2021-06-04] MEDS: METHYLPREDNISOLONE 40 MG INJ IV SCH ×3 (09:00→22:12)
[2021-06-04] MEDS: FLUCONAZOLE 100 MG TAB PO SCH (09:01)
[2021-06-04] MEDS: ZINC SULFATE 220 MG CAP PO SCH (09:01)
[2021-06-04] MEDS: THIAMINE HCL 100 MG TABLET PO SCH ×2 (09:01→22:12)
[2021-06-04] MEDS: FAMOTIDINE 20 MG TAB PO SCH ×2 (09:01→22:12)
[2021-06-04] MEDS: ASCORBIC ACID 500 MG TABLET PO SCH ×4 (09:02→22:12)
[2021-06-04] MEDS: CEFTRIAXONE/SWI 1gm 1 GM/10 ML SYR IV SCH (09:02)
[2021-06-04] MEDS: NACHLORIDE 0.45% 1,000 ML IV SCH (09:05)
[2021-06-04] MEDS: RIVAROXABAN 20 MG TABLET PO SCH (17:06)
[2021-06-04] MEDS: ROSUVASTATIN 10 MG TAB PO SCH (22:11)
[2021-06-05 03:54] LABS: Absolute Lymphocytes (CBC) 0.4 K/uL (0.7-4.9); Basophils % 0.2 % (0-1.3); Hematocrit 42.3 % (39.6-49.0); Lymphocytes % 1.9 % (15.3-44.8); MPV 8.4 fL (7.6-11.3); RBC Red Blood Cell Count 4.57 M/uL (4.33-5.43)
[2021-06-05 04:14] LABS: ALT/SGPT 138 U/L (12-78); AST/SGOT 61 U/L (15-37); Albumin 2.7 g/dL (3.4-5.0); Alkaline Phosphatase 75 U/L (45-117); BUN Blood Urea Nitrogen 24 mg/dL (7-18); Bicarbonate 27 mmol/L (21-32); Bilirubin Total 1.5 mg/dL (0.2-1.0); Ferritin 1788.2 ng/mL (26-388); Glucose Level 195 mg/dL (74-106); Potassium 4.9 mmol/L (3.5-5.1); Protein, Total 5.2 g/dL (6.4-8.2); Sodium Level 138 mmol/L (136-145)
[2021-06-05 04:39] LABS: C-Reactive Protein < 2.90 mg/L (<3.00)
--- NOTE | 2021-06-05 06:14 | P.PN ---
Subjective Date of Service: 06/05/21 Primary Care Provider: Konrad Delgado NP Chief Complaint: resp failure Subjective: Improving (Patient reports improvement. Currently on 10 L per nasal cannula.) Physical Examination - Vital Signs Temperature: 98.2 F Blood Pressure: 134/67 Pulse: 59 Respirations: 20 Pulse Ox (%): 91 - Studies Medications List Reviewed: Yes Assessment & Plan Discharge Plan: LTAC Plan to discharge in: 48 Hours Physician Review Additional Text: COVID: Positive, unvaccinated Chest x-ray: FINDINGS: Portable technique limits examination quality. Elevation of the left hemidiaphragm is seen without clear etiology. There is [id number] interstitial lung opacities present bilaterally, greater on the left, likely representing infection/bronchitis. The heart is mildly prominent in size. No displaced fractures. CT scan: COMPARISON: No comparisons FINDINGS: Chest Wall: No suspicious thyroid nodules or pathologic lymphadenopathy. Lungs: Patchy bilateral ground-glass and mildly consolidative airspace disease. Pleura: No significant effusions or pneumothorax. Mediastinum/rosaura: Bilateral hilar adenopathy. This is likely reactive. Pulmonary arteries/Aorta: No filling defect identified. No aortic aneurysm. Heart: No significant pericardial effusion. Normal heart size. Upper abdomen: No acute abnormality. Bones: No acute abnormality. IMPRESSION: Negative for pulmonary embolism. Moderate bilateral airspace disease in a pattern that most likely represents multifocal pneumonia, including Covid-19. Follow up CXR 06/01/2021: COMPARISON: <Comparisons> FINDINGS: Widespread bilateral airspace disease which is not significantly changed compared with 05/27/2021. The heart size is within normal limits.No acute osseous abnormality. No significant pleural effusions or pneumothorax. IMPRESSION: Widespread bilateral airspace disease consistent with multifocal pneumonia that is not significantly changed from prior. Physical Exam: GENERAL: The patient is a well-developed, well-nourished, in no apparent distress. Alert and oriented x3. VITAL SIGNS: Reviewed HEENT: Extraocular movements intact. Nares patent. NECK: Supple. No carotid bruits. No lymphadenopathy or thyromegaly. LUNGS: Clear anteriorly. Patient down to 10 L HEART: Regular rate and rhythm on telemetry ABDOMEN: Soft, nontender, and nondistended. Positive bowel sounds. No hepatosplenomegaly was noted. EXTREMITIES: Without any cyanosis, clubbing, rash, lesions or peripheral edema. NEUROLOGIC: The patient is oriented to person, place and time. Strength and sensation are grossly intact. Face is symmetric. SKIN: Dry skin noted Impression: Shortness of breath secondary to bilateral Covid pneumonia with hypoxia, unvaccinated with likely underlying COPD Hyperlipidemia Leukocytosis Plan: Shortness of breath secondary to bilateral Covid pneumonia with hypoxia, unvaccinated with likely underlying COPD: Patient reports improvement. Currently down to 10 L per nasal cannula. Wean off oxygen to maintain sats above 93%. Continue IV steroid, vitamin supplementation. IV fluids were discontinued yesterday. Encourage oral intake. Dietary to help with daily intake. Rocephin and Diflucan was added due to leukocytosis and to cover for any opportunistic infection. Leukocytosis improved. Procalcitonin negative. Continue to monitor the lab closely. Monitor CRP and ferritin. Encourage incentive spirometer, proning, ambulation. Discussed with patient about long- term acute care facility placement. Patient in agreement. Await approval for [facility] care facility placement. Hyperlipidemia: Continue Crestor 10 mg daily Leukocytosis: Leukocytosis improved. Will monitor. Continue with Rocephin and Diflucan. Procalcitonin negative. Repeat Blood culture negative. Will monitor this closely. Case discussed with pulmonology. Code Status: Full Code DVT prophylaxis: Xarelto Advanced Care Planning-30 minutes: Patient agreeable for long-term acute care facility placement. Await approval. Time Spent Managing Pts Care (In Minutes): 55
[2021-06-05] MEDS: CEFTRIAXONE/SWI 1gm 1 GM/10 ML SYR IV SCH (08:26)
[2021-06-05] MEDS: METHYLPREDNISOLONE 40 MG INJ IV SCH ×2 (08:27→21:02)
[2021-06-05] MEDS: ASPIRIN EC 81 MG TAB PO SCH (08:27)
[2021-06-05] MEDS: ASCORBIC ACID 500 MG TABLET PO SCH ×4 (08:27→21:02)
[2021-06-05] MEDS: FAMOTIDINE 20 MG TAB PO SCH ×2 (08:27→21:02)
[2021-06-05] MEDS: BENZONATATE 100 MG CAP PO PRN (08:27)
[2021-06-05] MEDS: ZINC SULFATE 220 MG CAP PO SCH (08:27)
[2021-06-05] MEDS: FLUCONAZOLE 100 MG TAB PO SCH (08:27)
[2021-06-05] MEDS: THIAMINE HCL 100 MG TABLET PO SCH ×2 (08:27→21:02)
[2021-06-05] MEDS: ENSURE HIGH PROTEIN 237 ML CAN PO SCH ×2 (08:28→21:00)
[2021-06-05] MEDS: VITAMIN D 1000 UNIT TAB PO SCH (08:29)
--- NOTE | 2021-06-05 13:56 | P.PN ---
Subjective Date of Service: 06/05/21 Primary Care Provider: Konrad Delgado NP Chief Complaint: resp failure Improving Review of Systems General: Weakness Respiratory: Shortness of Breath Physical Examination - Vital Signs Temperature: 98.8 F Blood Pressure: 104/68 Pulse: 70 Respirations: 24 Pulse Ox (%): 94 - Physical Exam General: Alert, In no apparent distress, Oriented x3, Cooperative - Studies Medications List Reviewed: Yes Assessment & Plan - Problems (Diagnosis) (1) Pneumonia due to COVID-19 virus Current Visit: Yes Status: Acute Plan: Improving/ NC in present meds/ labs reviewed/Sats improving
[2021-06-05] MEDS: RIVAROXABAN 20 MG TABLET PO SCH (16:04)
[2021-06-05] MEDS: ROSUVASTATIN 10 MG TAB PO SCH (21:04)
[2021-06-06 04:21] LABS: Absolute Lymphocytes (CBC) 0.4 K/uL (0.7-4.9); Basophils % 0.1 % (0-1.3); Hematocrit 41.9 % (39.6-49.0); Lymphocytes % 2.2 % (15.3-44.8); MPV 8.6 fL (7.6-11.3); RBC Red Blood Cell Count 4.51 M/uL (4.33-5.43)
[2021-06-06 04:57] LABS: ALT/SGPT 183 U/L (12-78); AST/SGOT 41 U/L (15-37); Albumin 2.7 g/dL (3.4-5.0); Alkaline Phosphatase 86 U/L (45-117); BUN Blood Urea Nitrogen 26 mg/dL (7-18); Bicarbonate 28 mmol/L (21-32); Bilirubin Total 1.2 mg/dL (0.2-1.0); Ferritin 1817.5 ng/mL (26-388); Glucose Level 268 mg/dL (74-106); Magnesium 2.1 mg/dL (1.8-2.4); Potassium 4.5 mmol/L (3.5-5.1); Protein, Total 5.4 g/dL (6.4-8.2); Sodium Level 138 mmol/L (136-145)
[2021-06-06 05:09] LABS: C-Reactive Protein < 2.90 mg/L (<3.00)
--- NOTE | 2021-06-06 06:20 | P.PN ---
Subjective Date of Service: 06/06/21 Primary Care Provider: Konrad Delgado NP Chief Complaint: resp failure Subjective: Improving (Currently on 10 L per nasal cannula) Physical Examination - Vital Signs Temperature: 97.5 F Blood Pressure: 134/65 Pulse: 56 Respirations: 16 Pulse Ox (%): 97 - Studies Medications List Reviewed: Yes Assessment & Plan Discharge Plan: LTAC Plan to discharge in: 48 Hours Physician Review Additional Text: COVID: Positive, unvaccinated Chest x-ray: FINDINGS: Portable technique limits examination quality. Elevation of the left hemidiaphragm is seen without clear etiology. There is mutr-[id number] interstitial lung opacities present bilaterally, greater on the left, likely representing infection/bronchitis. The heart is mildly prominent in size. No displaced fractures. CT scan: COMPARISON: No comparisons FINDINGS: Chest Wall: No suspicious thyroid nodules or pathologic lymphadenopathy. Lungs: Patchy bilateral ground-glass and mildly consolidative airspace disease. Pleura: No significant effusions or pneumothorax. Mediastinum/rosaura: Bilateral hilar adenopathy. This is likely reactive. Pulmonary arteries/Aorta: No filling defect identified. No aortic aneurysm. Heart: No significant pericardial effusion. Normal heart size. Upper abdomen: No acute abnormality. Bones: No acute abnormality. IMPRESSION: Negative for pulmonary embolism. Moderate bilateral airspace disease in a pattern that most likely represents multifocal pneumonia, including Covid-19. Follow up CXR 06/04/2021: COMPARISON: Chest Single View dated 06/01/2021; Chest Single View dated 05/27/2021; Chest Single View dated 05/26/2021; Chest Single View dated 05/25/2021; Chest For Pe Angio dated 05/21/2021 FINDINGS: Moderate bilateral airspace opacities with increasing airspace disease in the left lung in particular and also at the right lung base were there is more confluence. The heart size is within normal limits.No acute osseous abnormality. No significant pleural effusions or pneumothorax. IMPRESSION: Moderate bilateral airspace disease consistent with multifocal pneumonia. The aeration of the lungs has modestly worsened compared with 06/01/2021. Physical Exam: GENERAL: The patient is a well-developed, well-nourished, in no apparent distress. Alert and oriented x3. VITAL SIGNS: Reviewed HEENT: Extraocular movements intact. Nares patent. NECK: Supple. No carotid bruits. No lymphadenopathy or thyromegaly. LUNGS: Clear anteriorly. Patient down to 10 L HEART: Regular rate and rhythm on telemetry ABDOMEN: Soft, nontender, and nondistended. Positive bowel sounds. No hepatosplenomegaly was noted. EXTREMITIES: Without any cyanosis, clubbing, rash, lesions or peripheral edema. NEUROLOGIC: The patient is oriented to person, place and time. Strength and sensation are grossly intact. Face is symmetric. SKIN: Dry skin noted Impression: Shortness of breath secondary to bilateral Covid pneumonia with hypoxia, unvaccinated with likely underlying COPD Hyperlipidemia Leukocytosis Plan: Shortness of breath secondary to bilateral Covid pneumonia with hypoxia, unvaccinated with likely underlying COPD: Patient remained stable and currently on 10 L per nasal cannula. Overall improved. Continue to wean off oxygen to maintain sats above 93%. Continue IV steroid, vitamin supplementation. Patient taking better oral intake. Encourage oral intake. Dietary to help with daily intake. Rocephin and Diflucan was added due to leukocytosis and to cover for any opportunistic infection. Leukocytosis improved. Procalcitonin negative. Continue to monitor the lab closely. Monitor CRP and ferritin. Encourage incentive spirometer, proning, ambulation. Discussed with patient about long- term acute care facility placement. Patient in agreement. Await approval for long-term acute care facility placement. I will turn to service over to the hospitalist team tomorrow. I will go plan of care with him. Hyperlipidemia: Continue Crestor 10 mg daily Leukocytosis: Leukocytosis improved. Will monitor. Continue with Rocephin and Diflucan. Procalcitonin negative. Repeat Blood culture negative. Will monitor this closely. Case discussed with pulmonology. Code Status: Full Code DVT prophylaxis: Xarelto Advanced Care Planning-30 minutes: Awaiting approval for long-term acute care facility placement Time Spent Managing Pts Care (In Minutes): 55
[2021-06-06] MEDS: VITAMIN D 1000 UNIT TAB PO SCH (07:44)
[2021-06-06] MEDS: CEFTRIAXONE/SWI 1gm 1 GM/10 ML SYR IV SCH (07:44)
[2021-06-06] MEDS: ASPIRIN EC 81 MG TAB PO SCH (07:45)
[2021-06-06] MEDS: ASCORBIC ACID 500 MG TABLET PO SCH ×4 (07:45→19:32)
[2021-06-06] MEDS: ZINC SULFATE 220 MG CAP PO SCH (07:45)
[2021-06-06] MEDS: THIAMINE HCL 100 MG TABLET PO SCH ×2 (07:45→19:31)
[2021-06-06] MEDS: METHYLPREDNISOLONE 40 MG INJ IV SCH ×2 (07:46→19:32)
[2021-06-06] MEDS: ENSURE HIGH PROTEIN 237 ML CAN PO SCH ×2 (07:49→19:32)
[2021-06-06] MEDS: FLUCONAZOLE 100 MG TAB PO SCH (12:44)
[2021-06-06] MEDS: FAMOTIDINE 20 MG TAB PO SCH ×2 (12:45→19:31)
[2021-06-06 17:23] VITALS: BMI 29.9
[2021-06-06] MEDS: RIVAROXABAN 20 MG TABLET PO SCH (17:39)
--- NOTE | 2021-06-06 18:56 | P.PN ---
Subjective Date of Service: 06/06/21 Primary Care Provider: Konrad Delgado NP Chief Complaint: resp failure Improving/ O2 req decreased Review of Systems General: Weakness Respiratory: Shortness of Breath Physical Examination - Vital Signs Temperature: 98.7 F Blood Pressure: 127/67 Pulse: 60 Respirations: 22 Pulse Ox (%): 96 - Physical Exam General: Alert, Oriented x3, Cooperative - Studies Medications List Reviewed: Yes Assessment & Plan - Problems (Diagnosis) (1) Pneumonia due to COVID-19 virus Current Visit: Yes Status: Acute Plan: Improving/ poss DC AM
[2021-06-06] MEDS: BENZONATATE 100 MG CAP PO PRN (19:30)
[2021-06-06] MEDS: ROSUVASTATIN 10 MG TAB PO SCH (19:31)
[2021-06-06] MEDS: ACETAMINOPHEN 500 MG TAB PO PRN (19:34)
[2021-06-07 04:40] LABS: Absolute Lymphocytes (CBC) 0.8 K/uL (0.7-4.9); Basophils % 0.2 % (0-1.3); Hematocrit 41.3 % (39.6-49.0); Lymphocytes % 3.5 % (15.3-44.8); MPV 8.4 fL (7.6-11.3); RBC Red Blood Cell Count 4.42 M/uL (4.33-5.43)
[2021-06-07 05:53] LABS: ALT/SGPT 145 U/L (12-78); AST/SGOT 28 U/L (15-37); Albumin 2.8 g/dL (3.4-5.0); Alkaline Phosphatase 79 U/L (45-117); BUN Blood Urea Nitrogen 27 mg/dL (7-18); Bicarbonate 29 mmol/L (21-32); Glucose Level 219 mg/dL (74-106); Magnesium 2.3 mg/dL (1.8-2.4); Protein, Total 5.3 g/dL (6.4-8.2); Sodium Level 138 mmol/L (136-145)
[2021-06-07 05:54] LABS: C-Reactive Protein < 2.90 mg/L (<3.00)
[2021-06-07 07:26] LABS: Ferritin 1824.4 ng/mL (26-388)
--- NOTE | 2021-06-07 07:38 | RAD REPORT ---
EXAM DESCRIPTION: [facility] Single View06/07/2021 6:55 am CLINICAL HISTORY: Shortness of breath COMPARISON: June 05 FINDINGS: No significant change diffuse bilateral pulmonary opacities. The heart is normal size IMPRESSION: No significant change in the bilateral pneumonia
[2021-06-07] MEDS: ZINC SULFATE 220 MG CAP PO SCH (08:04)
[2021-06-07] MEDS: ASCORBIC ACID 500 MG TABLET PO SCH ×4 (08:04→21:34)
[2021-06-07] MEDS: VITAMIN D 1000 UNIT TAB PO SCH (08:04)
[2021-06-07] MEDS: ASPIRIN EC 81 MG TAB PO SCH (08:05)
[2021-06-07] MEDS: FLUCONAZOLE 100 MG TAB PO SCH (08:05)
[2021-06-07] MEDS: METHYLPREDNISOLONE 40 MG INJ IV SCH ×2 (08:05→21:35)
[2021-06-07] MEDS: THIAMINE HCL 100 MG TABLET PO SCH ×2 (08:05→21:34)
[2021-06-07] MEDS: FAMOTIDINE 20 MG TAB PO SCH ×2 (08:05→21:34)
[2021-06-07] MEDS: ENSURE HIGH PROTEIN 237 ML CAN PO SCH ×2 (08:06→21:35)
[2021-06-07 11:04] LABS: Blood Morphology Comment NOT SEEN (NOT SEEN); Platelet Estimate ADEQ
--- NOTE | 2021-06-07 16:20 | P.PN ---
Date of Service: 06/07/21 Subjective Subjective: Oxygenation is improving. On 8 L wall oxygen. Continue with current plan of care. Patient with slight nosebleed and will continue to monitor H&H and platelet counts. Review of Systems 10-point ROS is otherwise unremarkable Physical Examination - Vital Signs reviewed - Physical Exam General: Alert, In no apparent distress, Oriented x3 Neck: No abnormality Respiratory: Diminished; bilaterally Cardiovascular: Regular rate/rhythm, Normal S1 S2 Gastrointestinal: Normal bowel sounds, No tenderness Neurological: Normal speech, Normal tone, Normal affect Assessment & Plan - Problems (Diagnosis) (1) Pneumonia due to COVID-19 virus Current Visit: Yes Status: Acute - Plan Continue with plan of care as mentioned below: 1. Steroids, LABA, anticoagulation; 2. Supportive care; unable to arrange for LTAC placement. Currently doing much better and down a 8 L wall oxygen. Arrangements are pending for possible discharge placement. 3. Dc anti coagulation 4. GI and DVT prophylaxis
[2021-06-07] MEDS: RIVAROXABAN 20 MG TABLET PO SCH (18:45)
[2021-06-07] MEDS: ROSUVASTATIN 10 MG TAB PO SCH (21:34)
[2021-06-08] MEDS: VITAMIN D 1000 UNIT TAB PO SCH (08:38)
[2021-06-08] MEDS: THIAMINE HCL 100 MG TABLET PO SCH ×2 (08:39→21:40)
[2021-06-08] MEDS: FAMOTIDINE 20 MG TAB PO SCH ×2 (08:39→21:40)
[2021-06-08] MEDS: ZINC SULFATE 220 MG CAP PO SCH (08:39)
[2021-06-08] MEDS: ASPIRIN EC 81 MG TAB PO SCH (08:39)
[2021-06-08] MEDS: ASCORBIC ACID 500 MG TABLET PO SCH ×4 (08:39→21:40)
[2021-06-08] MEDS: ENSURE HIGH PROTEIN 237 ML CAN PO SCH ×2 (08:40→21:00)
[2021-06-08] MEDS: FLUCONAZOLE 100 MG TAB PO SCH (12:58)
[2021-06-08] MEDS: RIVAROXABAN 20 MG TABLET PO SCH (17:52)
[2021-06-08] MEDS: ROSUVASTATIN 10 MG TAB PO SCH (21:40)
[2021-06-09] MEDS: ASPIRIN EC 81 MG TAB PO SCH (08:47)
[2021-06-09] MEDS: FAMOTIDINE 20 MG TAB PO SCH ×2 (08:47→20:00)
[2021-06-09] MEDS: VITAMIN D 1000 UNIT TAB PO SCH (08:47)
[2021-06-09] MEDS: ZINC SULFATE 220 MG CAP PO SCH (08:47)
[2021-06-09] MEDS: ASCORBIC ACID 500 MG TABLET PO SCH ×4 (08:47→20:00)
[2021-06-09] MEDS: ENSURE HIGH PROTEIN 237 ML CAN PO SCH ×2 (08:48→20:00)
[2021-06-09] MEDS: THIAMINE HCL 100 MG TABLET PO SCH ×2 (08:48→20:00)
[2021-06-09] MEDS: FLUCONAZOLE 100 MG TAB PO SCH (08:48)
--- NOTE | 2021-06-09 11:31 | P.PN ---
Date of Service: 06/09/21 Subjective Subjective: Patient with slow improvement . Patient clinical symptoms are slowly improving. Review of Systems 10-point ROS is otherwise unremarkable Physical Examination - Vital Signs reviewed - Physical Exam General: Alert, In no apparent distress, Oriented x3 Neck: No abnormality Respiratory: Diminished; bilaterally Cardiovascular: Regular rate/rhythm, Normal S1 S2 Gastrointestinal: Normal bowel sounds, No tenderness Neurological: Normal speech, Normal tone, Normal affect Assessment & Plan - Problems (Diagnosis) (1) Pneumonia due to COVID-19 virus with hypoxemia Current Visit: Yes Status: Acute (2) Generalized weakness Current Visit: Yes Status: Acute - Plan Continue with plan of care as mentioned below: 1. Steroids, LABA, anticoagulation; 2. Will proceed with physical therapy; also start arranging for home oxygen over the next 24-48 hr 3. Resume anti coagulation if no active bleeding 4. Clinical symptoms continued to improve and if his strength improves and possible discharge home over the next 48-72 hr 5. GI and DVT prophylaxis
--- NOTE | 2021-06-09 11:31 | P.PN ---
Date of Service: 06/08/21 Subjective Subjective: Patient is feeling much better. They could his oxygen down to 4 L any desats when the eating into the 80s. However, he does come right back to the 90s. Otherwise, patient with no new complaints. Review of Systems 10-point ROS is otherwise unremarkable Physical Examination - Vital Signs reviewed - Physical Exam General: Alert, In no apparent distress, Oriented x3 Neck: No abnormality Respiratory: Diminished; bilaterally Cardiovascular: Regular rate/rhythm, Normal S1 S2 Gastrointestinal: Normal bowel sounds, No tenderness Neurological: Normal speech, Normal tone, Normal affect Assessment & Plan - Problems (Diagnosis) (1) Pneumonia due to COVID-19 virus with hypoxemia Current Visit: Yes Status: Acute (2) Generalized weakness Current Visit: Yes Status: Acute - Plan Continue with plan of care as mentioned below: 1. Steroids, LABA, anticoagulation; 2. Will proceed with physical therapy; also start arranging for home oxygen over the next 24-48 hr 3. Resume anti coagulation if no active bleeding 4. Clinical symptoms continued to improve and if his strength improves and possible discharge home over the next 48-72 hr 5. GI and DVT prophylaxis
[2021-06-09 12:02] LABS: Absolute Lymphocytes (CBC) 1.9 K/uL (0.7-4.9); Basophils % 0.3 % (0-1.3); Hematocrit 45.2 % (39.6-49.0); Lymphocytes % 14.6 % (15.3-44.8); RBC Red Blood Cell Count 4.88 M/uL (4.33-5.43)
[2021-06-09 12:23] LABS: BUN Blood Urea Nitrogen 31 mg/dL (7-18); Bicarbonate 31 mmol/L (21-32); Glucose Level 155 mg/dL (74-106); Sodium Level 138 mmol/L (136-145)
[2021-06-09 12:24] LABS: Potassium 4.4 mmol/L (3.5-5.1)
[2021-06-09] MEDS: RIVAROXABAN 20 MG TABLET PO SCH (16:03)
[2021-06-09] MEDS: ROSUVASTATIN 10 MG TAB PO SCH (20:00)
[2021-06-10 06:20] LABS: Absolute Lymphocytes (CBC) 1.8 K/uL (0.7-4.9); Basophils % 0.2 % (0-1.3); Hematocrit 45.1 % (39.6-49.0); MPV 7.9 fL (7.6-11.3); RBC Red Blood Cell Count 4.87 M/uL (4.33-5.43)
[2021-06-10 06:40] LABS: Protime INR 1.15
[2021-06-10 06:45] LABS: ALT/SGPT 153 U/L (12-78); AST/SGOT 38 U/L (15-37); Albumin 2.7 g/dL (3.4-5.0); Alkaline Phosphatase 69 U/L (45-117); BUN Blood Urea Nitrogen 25 mg/dL (7-18); Bicarbonate 32 mmol/L (21-32); Bilirubin Total 1.5 mg/dL (0.2-1.0); C-Reactive Protein < 2.90 mg/L (<3.00); Ferritin 1527.8 ng/mL (26-388); Glucose Level 144 mg/dL (74-106); Magnesium 2.1 mg/dL (1.8-2.4); NT PRO-BNP 101 pg/mL (<125); Potassium 4.2 mmol/L (3.5-5.1); Protein, Total 5.3 g/dL (6.4-8.2); Sodium Level 138 mmol/L (136-145)
[2021-06-10] MEDS: ZINC SULFATE 220 MG CAP PO SCH (07:36)
[2021-06-10] MEDS: THIAMINE HCL 100 MG TABLET PO SCH ×2 (07:36→19:36)
[2021-06-10] MEDS: ASCORBIC ACID 500 MG TABLET PO SCH ×4 (07:36→19:36)
[2021-06-10] MEDS: VITAMIN D 1000 UNIT TAB PO SCH (07:36)
[2021-06-10] MEDS: FLUCONAZOLE 100 MG TAB PO SCH (07:37)
[2021-06-10] MEDS: ENSURE HIGH PROTEIN 237 ML CAN PO SCH ×2 (07:37→19:36)
--- NOTE | 2021-06-10 07:45 | RAD REPORT ---
EXAM DESCRIPTION: [facility]ron Single View06/10/2021 6:26 am CLINICAL HISTORY: Shortness of breath COMPARISON: June 07 FINDINGS: No significant change in diffuse bilateral pulmonary opacities. The heart is normal size IMPRESSION: No significant change in the diffuse bilateral pulmonary opacities probably pneumonia
[2021-06-10] MEDS: ASPIRIN EC 81 MG TAB PO SCH (08:23)
[2021-06-10] MEDS: FAMOTIDINE 20 MG TAB PO SCH ×2 (08:23→19:35)
[2021-06-10] MEDS: RIVAROXABAN 20 MG TABLET PO SCH (16:02)
[2021-06-10] MEDS: ROSUVASTATIN 10 MG TAB PO SCH (19:35)
[2021-06-11 05:56] LABS: Absolute Lymphocytes (CBC) 1.6 K/uL (0.7-4.9); Basophils % 0.6 % (0-1.3); Hematocrit 42.7 % (39.6-49.0); Lymphocytes % 16.9 % (15.3-44.8); MPV 7.6 fL (7.6-11.3); RBC Red Blood Cell Count 4.59 M/uL (4.33-5.43)
[2021-06-11 06:10] LABS: ALT/SGPT 125 U/L (12-78); AST/SGOT 31 U/L (15-37); Albumin 2.6 g/dL (3.4-5.0); Alkaline Phosphatase 62 U/L (45-117); BUN Blood Urea Nitrogen 22 mg/dL (7-18); Bicarbonate 31 mmol/L (21-32); Bilirubin Total 1.5 mg/dL (0.2-1.0); C-Reactive Protein < 2.90 mg/L (<3.00); Glucose Level 139 mg/dL (74-106); Potassium 4.2 mmol/L (3.5-5.1); Protein, Total 5.1 g/dL (6.4-8.2); Sodium Level 139 mmol/L (136-145)
[2021-06-11] MEDS: VITAMIN D 1000 UNIT TAB PO SCH (08:23)
[2021-06-11] MEDS: ASCORBIC ACID 500 MG TABLET PO SCH ×4 (08:24→20:50)
[2021-06-11] MEDS: ZINC SULFATE 220 MG CAP PO SCH (08:24)
[2021-06-11] MEDS: THIAMINE HCL 100 MG TABLET PO SCH ×2 (08:24→20:49)
[2021-06-11] MEDS: ASPIRIN EC 81 MG TAB PO SCH (08:24)
[2021-06-11] MEDS: ENSURE HIGH PROTEIN 237 ML CAN PO SCH ×2 (08:24→20:50)
[2021-06-11] MEDS: FLUCONAZOLE 100 MG TAB PO SCH (08:24)
[2021-06-11] MEDS: FAMOTIDINE 20 MG TAB PO SCH ×2 (08:24→20:49)
[2021-06-11] MEDS: RIVAROXABAN 20 MG TABLET PO SCH (17:09)
[2021-06-11] MEDS: BENZONATATE 100 MG CAP PO PRN (20:49)
[2021-06-11] MEDS: ROSUVASTATIN 10 MG TAB PO SCH (20:50)
[2021-06-12 05:37] LABS: Absolute Lymphocytes (CBC) 1.4 K/uL (0.7-4.9); Basophils % 0.7 % (0-1.3); Hematocrit 41.4 % (39.6-49.0); Lymphocytes % 16.6 % (15.3-44.8); MPV 7.3 fL (7.6-11.3); RBC Red Blood Cell Count 4.45 M/uL (4.33-5.43)
[2021-06-12 06:01] LABS: ALT/SGPT 108 U/L (12-78); AST/SGOT 32 U/L (15-37); Albumin 2.6 g/dL (3.4-5.0); Alkaline Phosphatase 60 U/L (45-117); BUN Blood Urea Nitrogen 19 mg/dL (7-18); Bicarbonate 30 mmol/L (21-32); Bilirubin Total 1.3 mg/dL (0.2-1.0); Ferritin 1438.9 ng/mL (26-388); Glucose Level 135 mg/dL (74-106); Sodium Level 138 mmol/L (136-145)
[2021-06-12 06:02] LABS: C-Reactive Protein < 2.90 mg/L (<3.00)
[2021-06-12] MEDS: VITAMIN D 1000 UNIT TAB PO SCH (08:53)
[2021-06-12] MEDS: FAMOTIDINE 20 MG TAB PO SCH ×2 (08:53→21:03)
[2021-06-12] MEDS: THIAMINE HCL 100 MG TABLET PO SCH ×2 (08:54→21:03)
[2021-06-12] MEDS: ASCORBIC ACID 500 MG TABLET PO SCH ×4 (08:54→21:04)
[2021-06-12] MEDS: ASPIRIN EC 81 MG TAB PO SCH (08:54)
[2021-06-12] MEDS: FLUCONAZOLE 100 MG TAB PO SCH (08:54)
[2021-06-12] MEDS: ENSURE HIGH PROTEIN 237 ML CAN PO SCH ×2 (08:55→21:00)
[2021-06-12] MEDS: ZINC SULFATE 220 MG CAP PO SCH (08:57)
[2021-06-12] MEDS: RIVAROXABAN 20 MG TABLET PO SCH (16:44)
[2021-06-12] MEDS: ROSUVASTATIN 10 MG TAB PO SCH (21:08)
[2021-06-13] MEDS: ZINC SULFATE 220 MG CAP PO SCH (09:09)
[2021-06-13] MEDS: VITAMIN D 1000 UNIT TAB PO SCH (09:09)
[2021-06-13] MEDS: ASPIRIN EC 81 MG TAB PO SCH (09:09)
[2021-06-13] MEDS: THIAMINE HCL 100 MG TABLET PO SCH (09:09)
[2021-06-13] MEDS: ASCORBIC ACID 500 MG TABLET PO SCH ×3 (09:09→16:23)
[2021-06-13] MEDS: FLUCONAZOLE 100 MG TAB PO SCH (09:10)
[2021-06-13] MEDS: ENSURE HIGH PROTEIN 237 ML CAN PO SCH (09:10)
[2021-06-13] MEDS: FAMOTIDINE 20 MG TAB PO SCH (10:24)
[2021-06-13] MEDS ORDERED: NA CHLORIDE 0.9% 500 ML IV ONE (12:00)
[2021-06-13 14:02] VITALS: O2SAT 92
[2021-06-13] MEDS: RIVAROXABAN 20 MG TABLET PO SCH (16:23)
[2021-06-13 16:44] VITALS: BP 108/67; TEMP 97.8
--- NOTE | 2021-06-17 06:43 | P.PN ---
Date of Service: 06/12/21 Subjective Subjective: Will closely long-term patient over the last few days. Patient is continuing to improve. He is staying on 4 L oxygen. He does desaturate at times but he does get his oxygen status back up. He feels a lot better. He is encouraged that he should do well at home. We will watch him another day and if he does well today then possible discharge home. Review of Systems 10-point ROS is otherwise unremarkable Physical Examination - Vital Signs reviewed - Physical Exam General: Alert, In no apparent distress, Oriented x3 Neck: No abnormality Respiratory: Diminished; bilaterally Cardiovascular: Regular rate/rhythm, Normal S1 S2 Gastrointestinal: Normal bowel sounds, No tenderness Neurological: Normal speech, Normal tone, Normal affect Assessment & Plan - Problems (Diagnosis) (1) Pneumonia due to COVID-19 virus with hypoxemia Current Visit: Yes Status: Acute (2) Generalized weakness Current Visit: Yes Status: Acute - Plan Continue with plan of care as mentioned below: 1. Steroids, LABA, anticoagulation; 2. Will proceed with physical therapy; also start arranging for home oxygen over the next 24-48 hr 3. Resume anti coagulation if no active bleeding 4. Clinical symptoms continued to improve and if his strength improves and po ssible discharge home over the next 48-72 hr 5. GI and DVT prophylaxis
--- NOTE | 2021-06-17 06:44 | P.PN ---
Date of Service: 06/11/21 Subjective Subjective: Patient is clinically doing well with no new complaints. He is slowly improving. Review of Systems 10-point ROS is otherwise unremarkable Physical Examination - Vital Signs reviewed - Physical Exam General: Alert, In no apparent distress, Oriented x3 Neck: No abnormality Respiratory: Diminished; bilaterally Cardiovascular: Regular rate/rhythm, Normal S1 S2 Gastrointestinal: Normal bowel sounds, No tenderness Neurological: Normal speech, Normal tone, Normal affect Assessment & Plan - Problems (Diagnosis) (1) Pneumonia due to COVID-19 virus with hypoxemia Current Visit: Yes Status: Acute (2) Generalized weakness Current Visit: Yes Status: Acute - Plan Continue with plan of care as mentioned below: 1. Steroids, LABA, anticoagulation;Continue with inhaler therapy as well. Hopefully, patient will continue to improve. 2. Will proceed with physical therapy; also start arranging for home oxygen over the next 24-48 hr 3. Resume anti coagulation if no active bleeding 4. Clinical symptoms continued to improve and if his strength improves and possible discharge home over the next 48-72 hr 5. GI and DVT prophylaxis
--- NOTE | 2021-06-17 06:47 | P.PN ---
Date of Service: 06/10/21 Subjective Subjective: Patient shows no significant changes except for continuing decrease of oxygenation requirements. Continue with current plan of care at this time. Continue physical therapy. Hopefully, the patient continued to improve and we can work on discharge planning soon. Review of Systems 10-point ROS is otherwise unremarkable Physical Examination - Vital Signs reviewed - Physical Exam General: Alert, In no apparent distress, Oriented x3 Neck: No abnormality Respiratory: Diminished; bilaterally Cardiovascular: Regular rate/rhythm, Normal S1 S2 Gastrointestinal: Normal bowel sounds, No tenderness Neurological: Normal speech, Normal tone, Normal affect Assessment & Plan - Problems (Diagnosis) (1) Pneumonia due to COVID-19 virus with hypoxemia Current Visit: Yes Status: Acute (2) Generalized weakness Current Visit: Yes Status: Acute - Plan Continue with plan of care as mentioned below: 1. Steroids, LABA, anticoagulation;Continue with inhaler therapy as well. Hopefully, patient will continue to improve. 2. Will proceed with physical therapy; also start arranging for home oxygen over the next 24-48 hr 3. Resume anti coagulation 4. Clinical symptoms continued to improve and if his strength improves and possible discharge home over the next 48-72 hr 5. GI and DVT prophylaxis
--- NOTE | 2021-06-17 06:50 | P.DS ---
Discharge Date: 06/13/21 Primary Care Provider: Konrad Delgado NP Disposition: ROUTINE DISCHARGE Discharge Condition: FAIR Reason for Admission: resp failure - Problems (1) Pneumonia due to COVID-19 virus Status: Chronic Brief History of Present Illness: Patient is a 65-year-old male with history of hyperlipidemia and tobacco abuse. Patient presented with increasing shortness of breath, fever, chills and fatigue. Symptoms started several days ago. It got worse on Wednesday. The patient continued to have increasing shortness of breath with exertion. He came to the ER for further evaluation. Patient is unvaccinated for COVID-19. In the ER patient was evaluated. Patient found to be hypoxic. Patient placed on 4 L per nasal cannula. Chest x-ray shows evidence of Covid pneumonia. CT scan shows evidence of Covid changes. Negative for pulmonary embolism. White count 4.7, hemoglobin 14.7. Platelet count 127. Sodium 136, potassium 3.8. BUN of 17, creatinine 1.21 with a GFR of 60. Glucose 110. AST 48, ALT 32. Troponin unremarkable. Lactic acid normal. Patient positive for Covid. Ferritin and CRP pending. Patient admitted for further evaluation and treatment. Patient given IV Solu-Medrol in the ER. Hospital Course: Patient has significant improvement. Patient's only on 4 L of oxygen. Patient clinical symptoms continue to improve. At this time, patient has been remaining on 4 L. He has been on 4 L for a couple of days. He was advised not doing anything too strenuous at home. He is to take it easy for the next 7-14 days. He is not to do anything more than to get out of bed and maybe sit in a chair. After 14 days he has told that he can increase his physical activity and start working with physical therapy. At this time, we will go ahead and discharge him home with close outpatient followup. Vital Signs/Physical Exam: Temp Pulse Resp BP Pulse Ox 97.8 F 99 H 20 108/67 89 L 06/13/21 16:00 06/13/21 16:00 06/13/21 16:00 06/13/21 16:00 06/13/21 16:00 General: Alert, In no apparent distress, Oriented x3 Respiratory: Diminished Laboratory Data at Discharge: WBC 8.60 K/uL (4.3-10.9) 06/12/21 05:06 Hgb 14.0 g/dL (13.6-17.9) 06/12/21 05:06 Hct 41.4 % (39.6-49.0) 06/12/21 05:06 Plt Count 150 K/uL (152-406) L 06/12/21 05:06 PT 13.2 SECONDS (9.5-12.5) H 06/10/21 05:52 INR 1.15 06/10/21 05:52 Sodium 138 mmol/L (136-145) 06/12/21 05:06 Potassium 4.0 mmol/L (3.5-5.1) 06/12/21 05:06 BUN 19 mg/dL (7-18) H 06/12/21 05:06 Creatinine 0.69 mg/dL (0.55-1.3) 06/12/21 05:06 Glucose 135 mg/dL (74-106) H 06/12/21 05:06 Magnesium 2.0 mg/dL (1.8-2.4) 06/12/21 05:06 Total Bilirubin 1.3 mg/dL (0.2-1.0) H 06/12/21 05:06 AST 32 U/L (15-37) 06/12/21 05:06 ALT 108 U/L (12-78) H 06/12/21 05:06 Alkaline Phosphatase 60 U/L (45-117) 06/12/21 05:06 Home Medications: Rosuvastatin [Crestor*] 10 mg PO BEDTIME 05/22/21 Albuterol Inhaler [Ventolin Inhaler*] 2 puff IH Q6H PRN #1 hfa.aer.ad 06/13/21 Albuterol Neb [Proventil 0.083% Neb Soln] 2.5 mg NEB Q6HP PRN #60 amp 06/13/21 Ascorbic Acid [Vitamin C*] 500 mg PO QID #100 tablet 06/13/21 Benzonatate [Tessalon Perle*] 100 mg PO Q8H PRN #30 cap 06/13/21 Budesonide/Formoterol Fumarate [Symbicort 160-4.5 Mcg Inhaler] 1 puff IH BID #1 hfa.aer.ad 06/13/21 Cholecalciferol (Vitamin D3) [Vitamin D 1000 Iu Tab*] 1,000 unit PO DAILY #30 tab 06/13/21 Ensure High Protein 237 ml PO BID #60 can 06/13/21 Famotidine [Pepcid*] 20 mg PO BID #60 tab 06/13/21 Nebulizer Accessories [Aeroneb Go] 1 each MC DAILY #1 each 06/13/21 Nebulizer [Aeroneb Go Nebulizer] 1 each MC DAILY #1 each 06/13/21 Thiamine HCl [Vitamin B-1*] 100 mg PO BID #60 tablet 06/13/21 Zinc Sulfate [Zinc Sulfate*] 220 mg PO DAILY #30 cap 06/13/21 New Medications: Nebulizer Accessories [Aeroneb Go] 1 each MC DAILY #1 each Nebulizer [Aeroneb Go Nebulizer] 1 each MC DAILY #1 each Ensure High Protein 237 ml PO BID #60 can Famotidine [Pepcid*] 20 mg PO BID #60 tab Albuterol Neb [Proventil 0.083% Neb Soln] 2.5 mg NEB Q6HP PRN #60 amp PRN Reason: dyspnea/wheezing/cough Budesonide/Formoterol Fumarate [Symbicort 160-4.5 Mcg Inhaler] 1 puff IH BID #1 hfa.aer.ad Benzonatate [Tessalon Perle*] 100 mg PO Q8H PRN #30 cap PRN Reason: Cough Albuterol Inhaler [Ventolin Inhaler*] 2 puff IH Q6H PRN #1 hfa.aer.ad PRN Reason: Shortness Of Breath Thiamine HCl [Vitamin B-1*] 100 mg PO BID #60 tablet Ascorbic Acid [Vitamin C*] 500 mg PO QID #100 tablet Cholecalciferol (Vitamin D3) [Vitamin D 1000 Iu Tab*] 1,000 unit PO DAILY #30 tab Zinc Sulfate [Zinc Sulfate*] 220 mg PO DAILY #30 cap Physician Discharge Instructions: OK TO DC IV AND DC HOME FOLLOW-UP WITH PCP IN 1-2 WEEKS CALL ME AT [phone] IF ANY QUESTIONS REGARDING HOSPITAL STAY RETURN TO THE ER IF SYMPTOMS WORSENS FOLLOW-UP WITH PULMONARY IN 1-2 WEEKS Diet: AHA Activity: Fall precautions Followup: Unknown,U [Primary Care Provider] - Time spent managing pt's care (in minutes): 35
== END 2021-06-13 20:50 | disposition home health service (06) | DRG 177 ==
LOC: ER 09:56 → ERHOLD 14:26 → 4TH 05-28 11:25
PROVIDERS: ADMIT Family Medicine; ATTEND Hospitalist
PROC: 5A09357 Assistance with Respiratory Ventilation, Less than 24 Consecutive Hours, Continuous Positive Airway Pressure (ICD-10-PCS; principal; 2021-06-05)
DX: U07.1 COVID-19 (principal); J12.82 Pneumonia due to coronavirus disease 2019; J96.01 Acute respiratory failure with hypoxia; E44.1 Mild protein-calorie malnutrition; J44.9 Chronic obstructive pulmonary disease, unspecified; E78.5 Hyperlipidemia, unspecified; F17.210 Nicotine dependence, cigarettes, uncomplicated; Z68.30 Body mass index [BMI] 30.0-30.9, adult
CPT/HCPCS: 36415; 71045; 71275; 80048; 80053; 80076; 81003; 81015; 82728; 83605; 83735; 83880; 84145; 84484; 85025; 85610; 86140; 87040; 87086; 87088; 87804; 93005; 94002; 94003; 94010; 94640; 94660; 94760; 96374; 96375; 97110; 97112; 97116; 97161; 97530; 99285; J0456; J0696; J1650; J1940; J2920; J2930; J3262; J7040; J7050; J7605; Q9967; U0003

== ENCOUNTER 2021-06-15 17:32 | Inpatient (IN) | payer MEDICARE, OTHER ==
[2021-06-15 18:19] LABS: Basophils % 0.5 % (0-1.3); Hematocrit 41.9 % (39.6-49.0); Lymphocytes % 9.5 % (15.3-44.8); RBC Red Blood Cell Count 4.48 M/uL (4.33-5.43)
[2021-06-15 18:34] LABS: Protime INR 1.01
--- NOTE | 2021-06-15 18:41 | RAD REPORT ---
EXAM DESCRIPTION: Darron Single View06/15/2021 6:33 pm CLINICAL HISTORY: sob COMPARISON: June 10, 2021 FINDINGS: Marked bilateral pulmonary opacities have worsened since the prior exam The heart is normal size IMPRESSION: Worsening of marked bilateral pulmonary opacities probably pneumonia
[2021-06-15] MEDS ORDERED: METHYLPREDNISOLONE 125 MG INJ ONE (18:54)
[2021-06-15] MEDS ORDERED: ENOXAPARIN 80 MG/0.8 ML SQ ONE (18:54)
[2021-06-15] MEDS ORDERED: AZITHROMYCIN 500 MG INJ IVPB ONE (18:54)
[2021-06-15] MEDS ORDERED: NA CHLORIDE 0.9% 250 ML ONE (18:54)
[2021-06-15] MEDS ORDERED: NA CHLORIDE 0.9% 1,000 ML ONE (18:54)
--- NOTE | 2021-06-15 18:56 | ER ---
Nurse's Notes [facility] Name: Abraham Crowe Age: 66 yrs Sex: Male : 1955 Arrival Date: 06/15/2021 Time: 17:35 Bed 6 Private MD: Diagnosis: Other specified viral diseases-COVID - 19;Hypoxemia Presentation: 06/15 17:36 Chief complaint: EMS states: SOB started today, pt was discharged from here on Wednesday sv 06/13/21 and was admitted 05/20/21. Pt was discharged with O2 to home but not shown how to use it and it was not functioning properly when EMS arrived. 80% RA, placed on 100% NRB, sat up to 95%. Pt was very confused on EMS arrival but once placed on O2, pt became more responsive and answering questions appropriately. Coronavirus screen: Client reports previous positive COVID test result. Ebola Screen: No symptoms or risks identified at this time. Risk Assessment: Do you want to hurt yourself or someone else? Patient reports no desire to harm self or others. Onset of symptoms was June 15, 2021. 17:36 Method Of Arrival: EMS: [facility] sv 17:36 Acuity: DOMINIC 2 sv Triage Assessment: 17:36 General: Appears in no apparent distress. comfortable, well developed, Behavior is sv calm, cooperative, appropriate for age. Pain: Denies pain. Neuro: Level of Consciousness is awake, alert, obeys commands, Oriented to person, place, time, situation, Moves all extremities. Full function Speech is normal. Cardiovascular: Patient's skin is warm and dry. Rhythm is sinus tachycardia. Respiratory: Reports shortness of breath on exertion Airway is patent Respiratory effort is even, unlabored, Respiratory pattern is symmetrical, tachypnea Onset: The symptoms/episode began/occurred today, the patient has moderate shortness of breath. Derm: Skin is intact, Skin is normal. Musculoskeletal: Range of motion: intact in all extremities. Historical: - Allergies: 17:39 No Known Allergies; sv - PMHx: 17:39 Hypercholesterolemia; sv - Immunization history:: Adult Immunizations up to date. - Social history:: Smoking status: Patient/guardian denies using tobacco. - Family history:: not pertinent. Screenin:52 Abuse screen: Denies threats or abuse. Denies injuries from another. Nutritional sv screening: No deficits noted. Tuberculosis screening: No symptoms or risk factors identified. Fall Risk None identified. Assessment: 17:45 General: see triage assessment . hb 18:30 Reassessment: No changes from previously documented assessment. Patient and/or family hb updated on plan of care and expected duration. Pain level reassessed. 06/16 21:48 Reassessment: Report given to receiving nurse on fourth floor, pt left ED via hospital ea bed, per tech, pt tolerating well. Vital Signs: 06/15 17:36 BP 112 / 72; Pulse 117; Resp 36; Pulse Ox 98% on 15% Non-rebreather mask; Weight 88 kg; sv Height 6 ft. 0 in. (182.88 cm); Pain 0/10; 18:30 BP 106 / 71; Pulse 105; Resp 36; Pulse Ox 96% on 15% Non-rebreather mask; sv 17:36 Body Mass Index 26.31 (88.00 kg, 182.88 cm) sv ED Course: 17:35 Patient arrived in ED. sv 17:35 Jocelyn Canchola, RN is Primary Nurse. sv 17:36 Arm band placed on. sv 17:39 Triage completed. sv 17:41 Maintain EMS IV. Dressing intact. Good blood return noted. Site clean \T\ dry. Gauge \T\ sv site: 20G L FA. 17:46 Arnulfo Moncada MD is Attending Physician. ma2 17:52 ED physician to see patient. sv 17:52 Patient has correct armband on for positive identification. Bed in low position. Call sv light in reach. Side rails up X2. 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 Pulse ox on. NIBP on. Door closed. Head of bed elevated. 18:33 CXR XRAY In Process Unspecified. EDMS 18:55 Jude Gonzalez DO is Hospitalizing Provider. ma2 19:18 BMP Sent. sv 19:18 Blood Culture Adult (2) Sent. sv 19:18 C-Reactive Protein Sent. sv 19:18 CBC with Diff Sent. sv 19:20 Primary Nurse role handed off by Jocelyn Canchola, RN sv 19:46 Agustin Hernandez, RN is Primary Nurse. em 22:01 CT Chest For PE Angio In Process Unspecified. EDMS 06/16 01:02 No provider procedures requiring assistance completed. Patient admitted, IV remains in ea place. Administered Medications: 06/15 18:42 Drug: Lovenox (enoxaparin) 80 mg Route: Sub-Q; Site: abdomen; hb 19:19 Follow up: Response: No adverse reaction sv 18:42 Drug: NS 0.9% 500 ml Route: IV; Rate: 75 ml/hr; Site: left forearm; hb 18:43 Drug: SOLU-Medrol (methylPrednisoLONE) 125 mg Route: IVP; Site: left forearm; hb 19:19 Follow up: Response: No adverse reaction sv 18:43 Drug: AZITHromycin 500 mg Route: IVPB; Infused Over: 1 hrs; Site: left forearm; hb Outcome: 18:55 Decision to Hospitalize by Provider. ma2 06/16 01:02 Admitted to ER Hold. Please see [facility] for further documentation. ea Condition: stable Instructed on the need for admit, Demonstrated understanding of instructions. 21:49 Patient left the ED. ea Signatures: Dispatcher [employer] Jocelyn Barajas RN RN Agustin Hernandez RN RN em Baxter, Heather, RN RN Barb Boykin RN RN ea Alzahri, Mohammad, MD MD ma2
--- NOTE | 2021-06-15 18:56 | EDPHYS ---
Physician Documentation [facility] Name: Abraham Crowe Age: 66 yrs Sex: Male : 1955 Arrival Date: 06/15/2021 Time: 17:35 Bed 6 Private MD: ED Physician Arnulfo Moncada HPI: 06/15 17:57 This 66 yrs old Male presents to ER via EMS with complaints of Shortness Of ma2 Breath. 17:57 The patient has shortness of breath at rest. Onset: The symptoms/episode began/occurred ma2 gradually, 1 day(s) ago. Associated signs and symptoms: Pertinent negatives: productive cough, dizziness, hemoptysis, nausea. Severity of symptoms: At their worst the symptoms were moderate in the emergency department the symptoms are unchanged. The patient has experienced a previous episode. was diagnosed with covid and was discharged yesterday on home O2, was sob while walking and was unable to breath, called ems and o2 sats was 80$ when ems arrived and was combative. . Historical: - Allergies: 17:39 No Known Allergies; sv - PMHx: 17:39 Hypercholesterolemia; sv - Immunization history:: Adult Immunizations up to date. - Social history:: Smoking status: Patient/guardian denies using tobacco. - Family history:: not pertinent. ROS: 17:57 Constitutional: Negative for fever, chills, and weight loss. ma2 17:57 All other systems are negative. Exam: 17:57 Constitutional: This is a well developed, well nourished patient who is awake, alert, ma2 and in no acute distress. Head/Face: Normocephalic, atraumatic. Eyes: Pupils equal round and reactive to light, extra-ocular motions intact. Lids and lashes normal. Conjunctiva and sclera are non-icteric and not injected. Cornea within normal limits. Periorbital areas with no swelling, redness, or edema. ENT: Nares patent. No nasal discharge, no septal abnormalities noted. Tympanic membranes are normal and external auditory canals are clear. Oropharynx with no redness, swelling, or masses, exudates, or evidence of obstruction, uvula midline. Mucous membranes moist. Neck: Trachea midline, no thyromegaly or masses palpated, and no cervical lymphadenopathy. Supple, full range of motion without nuchal rigidity, or vertebral point tenderness. No Meningismus. Chest/axilla: Normal chest wall appearance and motion. Nontender with no deformity. No lesions are appreciated. Cardiovascular: Regular rate and rhythm with a normal S1 and S2. No gallops, murmurs, or rubs. Normal PMI, no JVD. No pulse deficits. Abdomen/GI: Soft, non-tender, with normal bowel sounds. No distension or tympany. No guarding or rebound. No evidence of tenderness throughout. Back: No spinal tenderness. No costovertebral tenderness. Full range of motion. Skin: Warm, dry with normal turgor. Normal color with no rashes, no lesions, and no evidence of cellulitis. MS/ Extremity: Pulses equal, no cyanosis. Neurovascular intact. Full, normal range of motion. Neuro: Awake and alert, GCS 15, oriented to person, place, time, and situation. Cranial nerves II-XII grossly intact. Motor strength 5/5 in all extremities. Sensory grossly intact. Cerebellar exam normal. Normal gait. 17:57 Respiratory: moderate respiratory distress is noted, Respirations: labored breathing, Breath sounds: bronchial sounds, that are moderate, rhonchi, are located in both bases, are heard in the right middle lobe and left lower lobe, Respiratory rate: 35 Vital Signs: 17:36 BP 112 / 72; Pulse 117; Resp 36; Pulse Ox 98% on 15% Non-rebreather mask; Weight 88 kg; sv Height 6 ft. 0 in. (182.88 cm); Pain 0/10; 18:30 BP 106 / 71; Pulse 105; Resp 36; Pulse Ox 96% on 15% Non-rebreather mask; sv 17:36 Body Mass Index 26.31 (88.00 kg, 182.88 cm) sv MDM: 17:46 Patient medically screened. ma2 17:57 Differential diagnosis: Anemia Anxiety Reaction asthma, pneumonia, pulmonary edema, ma2 reactive airway disease. 18:54 Antibiotic administration: Data reviewed: vital signs, nurses notes, lab test ma2 result(s), EKG, radiologic studies. Counseling: I had a detailed discussion with the patient and/or guardian regarding: the historical points, exam findings, and any diagnostic results supporting the discharge/admit diagnosis, the presence of at least one elevated blood pressure reading (>120/80) during this emergency department visit, the need for further work-up and treatment in the hospital. Response to treatment: the patient's symptoms have markedly improved after treatment. 06/15 17:54 Order name: BMP md2 06/15 17:54 Order name: Blood Culture Adult (2) md2 06/15 17:54 Order name: C-Reactive Protein md2 06/15 17:54 Order name: CBC with Diff [facility] 06/15 17:54 Order name: Ferritin [facility] 06/15 17:54 Order name: Flu md2 06/15 17:54 Order name: LFT's [facility] 06/15 17:54 Order name: Lactate [facility] 06/15 17:54 Order name: Lipase [facility] 06/15 17:54 Order name: PT-INR; Complete Time: 18:53 [facility] 06/15 17:54 Order name: Procalcitonin [facility] 06/15 17:54 Order name: Ptt, Activated; Complete Time: 18:53 [facility] 06/15 17:54 Order name: Strep [facility] 06/15 17:54 Order name: Troponin (emerg Dept Use Only) [facility] 06/15 17:54 Order name: Urine Microscopic Only [facility] 06/15 17:55 Order name: Basic Metabolic Panel [facility] 06/15 17:55 Order name: Blood Culture [facility] 06/15 17:55 Order name: C-Reactive Protein [facility] 06/15 17:55 Order name: CBC with Automated Diff; Complete Time: 18:24 [facility] 06/15 19:43 Order name: DD ej 06/15 20:30 Order name: Throat Culture [facility] 06/15 22:57 Order name: Lactate Sepsis 2 HR Follow-up [facility] 06/16 05:17 Order name: Lactate EDMS 06/16 05:33 Order name: Comprehensive Metabolic Panel [facility] 06/16 05:33 Order name: Phosphorus EDMS 06/16 05:33 Order name: C-Reactive Protein EDMI 06/16 05:33 Order name: Magnesium EDMS 06/16 05:33 Order name: Ferritin EDMS 06/16 05:48 Order name: CBC with Automated Diff [facility] 06/16 06:11 Order name: Procalcitonin [facility] 06/15 17:54 Order name: CXR XRAY; Complete Time: 18:53 [facility] 06/15 17:54 Order name: EKG; Complete Time: 17:55 md2 06/15 17:54 Order name: Cardiac monitoring; Complete Time: 18:43 md2 06/15 17:54 Order name: Droplet/Contact Precautions; Complete Time: 18:43 md2 06/15 17:54 Order name: EKG - Nurse/Tech; Complete Time: 18:43 md2 06/15 17:54 Order name: IV Start; Complete Time: 18:43 md2 06/15 17:54 Order name: Labs collected and sent; Complete Time: 18:43 md2 06/15 17:54 Order name: O2 Per Protocol; Complete Time: 18:43 md2 06/15 17:54 Order name: O2 Sat Monitoring; Complete Time: 18:43 [facility] 06/15 19:42 Order name: CONS Physician Consult [facility] 06/15 21:27 Order name: CT Chest For PE Angio ej 06/16 08:11 Order name: Hemoglobin A1c [facility] 06/16 08:35 Order name: Glucose, Ancillary Testing [facility] 06/16 10:58 Order name: CBC Smear Scan [facility] 06/16 11:46 Order name: Glucose, Ancillary Testing [facility] 06/16 17:03 Order name: Glucose, Ancillary Testing [facility] 06/16 18:12 Order name: Urine Dipstick-Ancillary EDMI Administered Medications: 18:42 Drug: Lovenox (enoxaparin) 80 mg Route: Sub-Q; Site: abdomen; hb 19:19 Follow up: Response: No adverse reaction sv 18:42 Drug: NS 0.9% 500 ml Route: IV; Rate: 75 ml/hr; Site: left forearm; hb 18:43 Drug: SOLU-Medrol (methylPrednisoLONE) 125 mg Route: IVP; Site: left forearm; hb 19:19 Follow up: Response: No adverse reaction sv 18:43 Drug: AZITHromycin 500 mg Route: IVPB; Infused Over: 1 hrs; Site: left forearm; hb Disposition: 18:01 Critical Care:. ma2 18:02 Critical Care:. ma2 Disposition Summary: 06/15/21 18:55 Hospitalization Ordered Hospitalization Status: Inpatient Admission ma2 Provider: Jude Gonzalez Condition: Stable ma2 Problem: new ma2 Symptoms: are unchanged md2 Bed/Room Type: Standard [facility] Location: Telemetry/MedSurg (Inpatient)(06/16/21 20:56) mw Room Assignment: 430(06/16/21 20:56) mw Diagnosis - Other specified viral diseases - COVID - 19 ma2 - Hypoxemia ma2 Forms: - Medication Reconciliation Form ma2 - SBAR form ma2 Critical care time excluding procedures: 18:01 Critical care time: Bedside Care: 30 minutes, Consultation: 10 minutes, Family ma2 Intervention: 5 minutes. Total time: 45 minutes 18:02 Critical care time: Bedside Care: 30 minutes, Consultation: 10 minutes, Family ma2 Intervention: 5 minutes. Total time: 45 minutes Signatures: Dispatcher [employer] Jocelyn Barajas RN RN sv Webb, Martha, RN RN mw Baxter, Heather, RN RN hb Alzahri, Mohammad, MD MD ma2 Corrections: (The following items were deleted from the chart) 19:19 17:54 Scott ordered. ma2 sv 20:22 18:55 Telemetry/MedSurg (Inpatient) ma2 mw 20:22 18:55 ma2 mw 06/16 20:56 06/15 20:22 [facility] ER HOLD mw mw 06/16 20:56 06/15 20:22 ERHOLD- mw mw
[2021-06-15 18:57] LABS: ALT/SGPT 72 U/L (12-78); Albumin 2.8 g/dL (3.4-5.0); Alkaline Phosphatase 76 U/L (45-117); BUN Blood Urea Nitrogen 11 mg/dL (7-18); Bicarbonate 26 mmol/L (21-32); Bilirubin Direct 0.2 mg/dL (0-0.2); Bilirubin Total 0.9 mg/dL (0.2-1.0); C-Reactive Protein 8.24 mg/L (<3.00); Ferritin 1236.2 ng/mL (26-388); Glucose Level 238 mg/dL (74-106); Lipase 136 U/L (73-393); Protein, Total 6.1 g/dL (6.4-8.2); Sodium Level 140 mmol/L (136-145); Troponin (Emerg Dept Use Only) < 0.02 ng/mL (0.0-0.045)
[2021-06-15 18:58] LABS: AST/SGOT 31 U/L (15-37); Potassium 4.3 mmol/L (3.5-5.1)
--- NOTE | 2021-06-15 21:06 | P.HP ---
Certification for Inpatient Patient admitted to: Inpatient With expected LOS: >2 Midnights Patient will require the following post-hospital care: None Practitioner: I am a practitioner with admitting privileges, knowledge of patient current condition, hospital course, and medical plan of care. Services: Services provided to patient in accordance with Admission requirements found in Title 42 Section 412.3 of the Code of Federal Regulations Patient History Date of Service: 06/15/21 Reason for admission: covid pneumonia History of Present Illness: Mr. Crowe is a 66 yo M with HLD who presents with worsening covid pneumonia. He was discharged from the hospital on Wednesday evening with home O2. Over the past few days, he has been unable to catch his breath. When he ambulates, it takes him 20-30 minutes for his sats to return to baseline, when it had taken him 10 minutes in the past. He reports increasing fatigue and [place]. At home, his sats were 47% at rest on O2. He was told to use 3-4L of O2 at home and increase when ambulating but he was still not recovering. He says he thought he could use long leads to go from room to room and leave the O2 tank in the living room. When EMS arrived they told him that he was not getting any oxygen using leads this long. Now at bedside he is on a NRB and says this is the first time in two days that he could breathe. He is frustrated that he did not receive proper instruction on O2 use from the company. CXR shows worsening COVID pneumonia. Allergies No Known Allergies Allergy (Unverified 05/21/21 14:38) Home Medications: Rosuvastatin [Crestor*] 10 mg PO BEDTIME 05/22/21 Albuterol Inhaler [Ventolin Inhaler*] 2 puff IH Q6H PRN #1 hfa.aer.ad 06/13/21 Albuterol Neb [Proventil 0.083% Neb Soln] 2.5 mg NEB Q6HP PRN #60 amp 06/13/21 Ascorbic Acid [Vitamin C*] 500 mg PO QID #100 tablet 06/13/21 Benzonatate [Tessalon Perle*] 100 mg PO Q8H PRN #30 cap 06/13/21 Budesonide/Formoterol Fumarate [Symbicort 160-4.5 Mcg Inhaler] 1 puff IH BID #1 hfa.aer.ad 06/13/21 Cholecalciferol (Vitamin D3) [Vitamin D 1000 Iu Tab*] 1,000 unit PO DAILY #30 tab 06/13/21 Ensure High Protein 237 ml PO BID #60 can 06/13/21 Famotidine [Pepcid*] 20 mg PO BID #60 tab 06/13/21 Nebulizer Accessories [Aeroneb Go] 1 each MC DAILY #1 each 06/13/21 Nebulizer [Aeroneb Go Nebulizer] 1 each MC DAILY #1 each 06/13/21 Rosuvastatin [Crestor*] 10 mg PO BEDTIME #30 tab 06/13/21 Thiamine HCl [Vitamin B-1*] 100 mg PO BID #60 tablet 06/13/21 Zinc Sulfate [Zinc Sulfate*] 220 mg PO DAILY #30 cap 06/13/21 - Past Medical/Surgical History Diabetic: No -: Hyperlipidemia -: Tobacco abuse Past Surgical History: Patient denies surgical history Psychosocial/ Personal History: Patient is . 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 moist/pink, EOMI, Sclerae nonicteric Neck: Supple, 2+ carotid pulse no bruit, No LAD, Without JVD or thyroid abnormality Respiratory: Diminished, Expiratory wheezes, Rhonchi/gurgles Cardiovascular: Regular rate/rhythm (tachycardic), Normal S1 S2 Capillary refill: <2 Seconds Gastrointestinal: Normal bowel sounds, No tenderness Musculoskeletal: No tenderness Integumentary: No rashes Neurological: Normal strength at 5/5 x4 extr, Normal tone, Normal affect, Abnormal speech (labored) Lymphatics: No axilla or inguinal lymphadenopathy - Studies Laboratory Data (last 24 hrs) 06/15/21 17:55: PT 11.6, INR 1.01, APTT 24.9 06/15/21 17:55: WBC 10.30 D, Hgb 14.0, Hct 41.9, Plt Count 158 06/15/21 17:55: Sodium 140, Potassium 4.3, BUN 11, Creatinine 0.80, Glucose 238 H, Total Bilirubin 0.9, AST 31, ALT 72, Alkaline Phosphatase 76, Lipase 136 Microbiology Data (last 24 hrs): 06/15/21 17:59 Nasopharnyx Influenza Type A Antigen Screen - Final 06/15/21 17:59 Nasopharnyx Influenza Type B Antigen Screen - Final 06/15/21 17:59 Throat Group A Streptococcus Rapid Screen - Final Assessment and Plan - Problems (Diagnosis) (1) HLD (hyperlipidemia) Current Visit: Yes Status: Chronic Qualifiers: Hyperlipidemia type: unspecified Qualified Code(s): E78.5 - Hyperlipidemia, unspecified (2) Hyperglycemia Current Visit: Yes Status: Acute (3) Pneumonia due to COVID-19 virus Current Visit: No Status: Chronic - Plan pulm consulted, RT consulted sats for home O2, daily room air sats daily CRP, procal, ferritin continue IV steroids, covid supplement patient has already received ivermectin and not a candidate for barcitinib. A1c pending, sliding scale insulin and accuchecks Ddimer pending, will obtain CTPE if elevated DVT ppx patient would like his to be updated on his care, he wants her to make his medical decisions - [phone] Discharge Plan: Home Plan to discharge in: 48 Hours - Advance Directives Does patient have a Living Will: No Does patient have a Durable POA for Healthcare: No - Code Status/Comfort Care Code Status Assessed: Yes (full code ) Critical Care: No Time Spent Managing Pts Care (In Minutes): 70
--- NOTE | 2021-06-15 22:08 | RAD REPORT ---
EXAM DESCRIPTION: CT - Chest For Pe Angio - 06/15/2021 10:00 pm CLINICAL HISTORY: sob COMPARISON: May 21, 2021 TECHNIQUE: Dynamically enhanced axial 3 mm thick images of the chest were obtained during administra tion of <100> mL Isovue 370 IV contrast. Coronal and oblique reconstruction images were generated and reviewed. Exam utilizes a protocol for optimal evaluation of pulmonary arterial tree. Maximum intensity projections 3D imaging was utilized All CT scans are performed using dose optimization technique as appropriate and may include automated exposure control or mA/KV adjustment according to patient size. FINDINGS: A pulmonary embolus is not seen. A thoracic aortic aneurysm is not noted. Small pleural effusions. A pericardial effusion is not seen. Moderate to marked bilateral ground-glass lung opacities IMPRESSION: Negative for a pulmonary embolism. [id number] bilateral ground-glass lung opacities probably Covid pneumonia
[2021-06-16] MEDS ORDERED: MELATONIN 5 MG TABLET PO PRN (00:57)
[2021-06-16] MEDS ORDERED: ONDANSETRON 4 MG/2 ML VIAL IV PRN (00:57)
[2021-06-16] MEDS ORDERED: MORPHINE 2 MG/ML SYR IV PRN (00:57)
[2021-06-16] MEDS ORDERED: HYDRALAZINE HCL 20 MG/ML VIAL IV PRN (00:57)
[2021-06-16] MEDS: FAMOTIDINE 20 MG TAB PO SCH ×3 (00:57→22:11)
[2021-06-16] MEDS: ASCORBIC ACID 500 MG TABLET PO SCH ×5 (00:57→22:11)
[2021-06-16] MEDS: INSULIN -REGULAR HUMAN 50 UNIT/0.5 ML ML SQ SCH ×5 (00:57→22:12)
[2021-06-16] MEDS ORDERED: ACETAMINOPHEN 500 MG TAB PO PRN (00:57)
[2021-06-16] MEDS ORDERED: BENZONATATE 100 MG CAP PO PRN (00:57)
[2021-06-16] MEDS: METHYLPREDNISOLONE 125 MG INJ IV SCH ×3 (00:57→22:12)
[2021-06-16 05:06] LABS: Absolute Lymphocytes (CBC) 0.6 K/uL (0.7-4.9); Basophils % 0.5 % (0-1.3); Hematocrit 39.1 % (39.6-49.0); Lymphocytes % 7.2 % (15.3-44.8); RBC Red Blood Cell Count 4.18 M/uL (4.33-5.43)
[2021-06-16] MEDS ORDERED: METHYLPREDNISOLONE 125 MG INJ ONE (05:16)
[2021-06-16] MEDS ORDERED: ASCORBIC ACID 500 MG TABLET ONE ×4 (05:16→17:24)
[2021-06-16] MEDS ORDERED: FAMOTIDINE 20 MG TAB ONE ×2 (05:16→09:16)
[2021-06-16 05:33] LABS: ALT/SGPT 63 U/L (12-78); AST/SGOT 23 U/L (15-37); Albumin 2.8 g/dL (3.4-5.0); Alkaline Phosphatase 74 U/L (45-117); BUN Blood Urea Nitrogen 10 mg/dL (7-18); Bicarbonate 28 mmol/L (21-32); Ferritin 1240.8 ng/mL (26-388); Glucose Level 220 mg/dL (74-106); Magnesium 1.9 mg/dL (1.8-2.4); Phosphorus 2.9 mg/dL (2.5-4.9); Potassium 4.4 mmol/L (3.5-5.1); Protein, Total 5.8 g/dL (6.4-8.2); Sodium Level 139 mmol/L (136-145)
[2021-06-16] MEDS ORDERED: PNEUMOCOCCAL VACCINE 0.5 ML IMVAC ONE (08:00)
[2021-06-16] MEDS: ASPIRIN EC 81 MG TAB PO SCH (09:00)
[2021-06-16] MEDS: ZINC SULFATE 220 MG CAP PO SCH (09:00)
[2021-06-16] MEDS: VITAMIN D 1000 UNIT TAB PO SCH (09:00)
[2021-06-16] MEDS: THIAMINE HCL 100 MG TABLET PO SCH (09:00)
[2021-06-16] MEDS ORDERED: ASPIRIN EC 81 MG TAB PO ONE (09:15)
[2021-06-16] MEDS ORDERED: ZINC SULFATE 220 MG CAP ONE (09:15)
[2021-06-16] MEDS ORDERED: THIAMINE HCL 100 MG TABLET ONE (09:15)
[2021-06-16] MEDS ORDERED: METHYLPREDNISOLONE 40 MG INJ ONE (09:16)
[2021-06-16] MEDS ORDERED: VITAMIN D 1000 UNIT TAB ONE (09:16)
[2021-06-16 10:58] LABS: Blood Morphology Comment NOT SEEN (NOT SEEN); Platelet Estimate ADEQ; White Blood Cell Scan OK (OK)
[2021-06-16] MEDS ORDERED: RIVAROXABAN 10 MG TABLET PO SCH (17:00)
[2021-06-16] MEDS: RIVAROXABAN 20 MG TABLET PO SCH (17:00)
[2021-06-16] MEDS ORDERED: RIVAROXABAN 20 MG TABLET PO ONE (17:24)
[2021-06-16] MEDS ORDERED: INSULIN -REGULAR HUMAN 50 UNIT/0.5 ML ML ONE (17:25)
--- NOTE | 2021-06-16 17:34 | P.PN ---
Subjective Date of Service: 06/16/21 Chief Complaint: covid pneumonia Patient requiring 100% non-rebreather. No fever. Physical Examination - Vital Signs Temperature: 97.6 F Blood Pressure: 146/81 Pulse: 82 Respirations: 30 Pulse Ox (%): 99 - Physical Exam General: Alert, In no apparent distress HEENT: Sclerae nonicteric Neck: JVD not distended Respiratory: Other (Nonlabored breathing) Cardiovascular: Regular rate/rhythm, Normal S1 S2 Gastrointestinal: Soft and benign, Non-distended Musculoskeletal: No swelling Neurological: Normal strength at 5/5 x4 extr - Studies Laboratory Data (last 24 hrs) 06/15/21 17:55: PT 11.6, INR 1.01, APTT 24.9 06/15/21 17:55: WBC 10.30 D, Hgb 14.0, Hct 41.9, Plt Count 158 06/15/21 17:55: Sodium 140, Potassium 4.3, BUN 11, Creatinine 0.80, Glucose 238 H, Total Bilirubin 0.9, AST 31, ALT 72, Alkaline Phosphatase 76, Lipase 136 Microbiology Data (last 24 hrs): 06/15/21 17:59 Nasopharnyx Influenza Type A Antigen Screen - Final 06/15/21 17:59 Nasopharnyx Influenza Type B Antigen Screen - Final 06/15/21 17:59 Throat Group A Streptococcus Rapid Screen - Final Assessment And Plan - Current Problems (Diagnosis) (1) Acute respiratory failure with hypoxia Current Visit: Yes Status: Acute (2) Pneumonia due to COVID-19 virus Current Visit: No Status: Chronic (3) Hyperglycemia Current Visit: Yes Status: Acute - Plan Continue IV steroid, vitamin supplementation, zinc supplementation. Wean down oxygen as tolerated. Monitor inflammatory markers Insulin sliding scale for glucose management. Will start Lantus insulin for persistent hyperglycemia. Check hemoglobin A1c. Consult to pulmonary.
[2021-06-16 18:11] LABS: Urine Blood Negative (Negative); Urine Glucose 2+ (Negative); Urine Protein Negative (Negative)
[2021-06-17] LABS: Urine Appearance CLEAR (Clear); Urine Bilirubin NEGATIVE (Negative); Urine Blood NEGATIVE (Negative); Urine Color YELLOW (Yellow); Urine Glucose 3+ (Negative); Urine Microscopic Reflex NO UMIC; Urine Protein NEGATIVE (Negative); Urine Specific Gravity 1.025 (1.005-1.030); Urine Urobilinogen 0.2 mg/dL (0.2-1.0)
[2021-06-17 01:06] VITALS: BMI 22.8
[2021-06-17 05:37] LABS: Absolute Lymphocytes (CBC) 0.9 K/uL (0.7-4.9); Basophils % 0.4 % (0-1.3); Hematocrit 37.3 % (39.6-49.0); Lymphocytes % 6.8 % (15.3-44.8); MPV 7.8 fL (7.6-11.3); RBC Red Blood Cell Count 3.94 M/uL (4.33-5.43)
[2021-06-17 05:46] LABS: ALT/SGPT 54 U/L (12-78); AST/SGOT 16 U/L (15-37); Albumin 2.7 g/dL (3.4-5.0); Alkaline Phosphatase 71 U/L (45-117); BUN Blood Urea Nitrogen 17 mg/dL (7-18); Bicarbonate 31 mmol/L (21-32); Bilirubin Total 0.8 mg/dL (0.2-1.0); C-Reactive Protein 7.68 mg/L (<3.00); Ferritin 1160.1 ng/mL (26-388); Glucose Level 192 mg/dL (74-106); Phosphorus 3.1 mg/dL (2.5-4.9); Protein, Total 5.8 g/dL (6.4-8.2); Sodium Level 141 mmol/L (136-145)
[2021-06-17] MEDS: INSULIN -REGULAR HUMAN 50 UNIT/0.5 ML ML SQ SCH ×4 (07:30→21:46)
[2021-06-17] MEDS: VITAMIN D 1000 UNIT TAB PO SCH (09:03)
[2021-06-17] MEDS: FAMOTIDINE 20 MG TAB PO SCH ×2 (09:04→21:46)
[2021-06-17] MEDS: METHYLPREDNISOLONE 125 MG INJ IV SCH ×2 (09:04→21:47)
[2021-06-17] MEDS: ZINC SULFATE 220 MG CAP PO SCH (09:04)
[2021-06-17] MEDS: ASCORBIC ACID 500 MG TABLET PO SCH ×4 (09:04→21:47)
[2021-06-17] MEDS: ASPIRIN EC 81 MG TAB PO SCH (09:04)
[2021-06-17] MEDS: THIAMINE HCL 100 MG TABLET PO SCH (09:04)
--- NOTE | 2021-06-17 16:39 | P.PN ---
Subjective Date of Service: 06/17/21 Chief Complaint: covid pneumonia Subjective: Improving (Feeling much better today, breathing more comfortably) Review of Systems 10-point ROS is otherwise unremarkable Physical Examination - Vital Signs Temperature: 98.7 F Blood Pressure: 114/78 Pulse: 80 Respirations: 20 Pulse Ox (%): 92 - Studies Microbiology Data (last 24 hrs): 06/15/21 17:59 Throat Culture & Sensitivity - Final NORMAL UPPER RESPIRATORY GERARDO GROWN. Assessment & Plan Physician Review Additional Text: Physical Exam General: Alert, NAD HEENT: Sclerae anicteric Respiratory: nonlabored respiration on 6L NC Cardiovascular: Regular rate/rhythm, no edema Gastrointestinal: Soft, Non-distended Musculoskeletal: No swelling Neurological: Normal strength at 5/5 x4 extr Problem List Acute respiratory failure with hypoxia secondary to COVID-19 pneumonia DM2, new diagnosis, non-insulin dependence Continue steroid, vitamin supplementation, zinc supplementation. Wean down oxygen as tolerated. Monitor inflammatory markers Insulin sliding scale for glucose management. Lantus for persistent hyperglycemia. A1c: 7.6 Pulm consulted Code: full Dispo: anticipate dc home in 24-48hrs Time Spent Managing Pts Care (In Minutes): 35
[2021-06-17] MEDS: RIVAROXABAN 20 MG TABLET PO SCH (17:33)
[2021-06-18 03:39] LABS: Absolute Lymphocytes (CBC) 0.8 K/uL (0.7-4.9); Basophils % 0.6 % (0-1.3); Hematocrit 37.8 % (39.6-49.0); Lymphocytes % 6.2 % (15.3-44.8); MPV 7.9 fL (7.6-11.3); RBC Red Blood Cell Count 4.02 M/uL (4.33-5.43)
[2021-06-18 03:59] LABS: ALT/SGPT 58 U/L (12-78); AST/SGOT 16 U/L (15-37); Albumin 2.7 g/dL (3.4-5.0); Alkaline Phosphatase 68 U/L (45-117); BUN Blood Urea Nitrogen 20 mg/dL (7-18); Bicarbonate 31 mmol/L (21-32); Bilirubin Total 0.8 mg/dL (0.2-1.0); C-Reactive Protein 3.53 mg/L (<3.00); Ferritin 1093.6 ng/mL (26-388); Glucose Level 182 mg/dL (74-106); Potassium 4.1 mmol/L (3.5-5.1); Protein, Total 5.6 g/dL (6.4-8.2); Sodium Level 141 mmol/L (136-145)
--- NOTE | 2021-06-18 06:34 | P.PN ---
Subjective Date of Service: 06/18/21 Chief Complaint: covid pneumonia Subjective: Improving (off/on 4L and NRB, improving) Review of Systems 10-point ROS is otherwise unremarkable Physical Examination - Vital Signs Temperature: 97.7 F Blood Pressure: 160/90 Pulse: 71 Respirations: 14 Pulse Ox (%): 99 - Studies Microbiology Data (last 24 hrs): 06/15/21 17:59 Throat Culture & Sensitivity - Final NORMAL UPPER RESPIRATORY GERARDO GROWN. Assessment & Plan Physician Review Additional Text: Physical Exam General: Alert, NAD HEENT: Sclera anicteric Respiratory: non-labored respiration on 4L NC Cardiovascular: Regular rate/rhythm, no edema Gastrointestinal: Soft, Non-distended Musculoskeletal: No swelling Neurological: Normal strength at 5/5 x4 extr Problem List Acute respiratory failure with hypoxia secondary to COVID-19 pneumonia DM2, new diagnosis, non-insulin dependence Continue steroid, vitamin supplementation, zinc supplementation. Wean down oxygen as tolerated. Monitor inflammatory markers Insulin sliding scale for glucose management. Lantus for persistent hyperglycemia. A1c: 7.6 Pulm consulted improving, tolerating 4LNC but requiring NRB for "rescue" when he gets short of breath Code: full Dispo: anticipate dc home in 24-48hrs Time Spent Managing Pts Care (In Minutes): 35
[2021-06-18] MEDS: VITAMIN D 1000 UNIT TAB PO SCH (08:41)
[2021-06-18] MEDS: ZINC SULFATE 220 MG CAP PO SCH (08:42)
[2021-06-18] MEDS: METHYLPREDNISOLONE 125 MG INJ IV SCH ×2 (08:42→20:16)
[2021-06-18] MEDS: ASPIRIN EC 81 MG TAB PO SCH (08:43)
[2021-06-18] MEDS: ASCORBIC ACID 500 MG TABLET PO SCH ×4 (08:43→20:16)
[2021-06-18] MEDS: THIAMINE HCL 100 MG TABLET PO SCH (08:44)
[2021-06-18] MEDS: FAMOTIDINE 20 MG TAB PO SCH ×2 (08:44→20:16)
[2021-06-18] MEDS: INSULIN -REGULAR HUMAN 50 UNIT/0.5 ML ML SQ SCH ×4 (08:44→20:19)
[2021-06-18] MEDS: RIVAROXABAN 20 MG TABLET PO SCH (16:21)
[2021-06-19 04:05] LABS: Absolute Lymphocytes (CBC) 0.8 K/uL (0.7-4.9); Basophils % 0.6 % (0-1.3); Hematocrit 37.7 % (39.6-49.0); MPV 7.9 fL (7.6-11.3); RBC Red Blood Cell Count 3.99 M/uL (4.33-5.43)
[2021-06-19 04:28] LABS: ALT/SGPT 80 U/L (12-78); AST/SGOT 22 U/L (15-37); Albumin 2.7 g/dL (3.4-5.0); Alkaline Phosphatase 68 U/L (45-117); BUN Blood Urea Nitrogen 23 mg/dL (7-18); Bicarbonate 33 mmol/L (21-32); Bilirubin Total 0.8 mg/dL (0.2-1.0); Ferritin 1150.4 ng/mL (26-388); Glucose Level 231 mg/dL (74-106); Protein, Total 5.6 g/dL (6.4-8.2); Sodium Level 140 mmol/L (136-145)
[2021-06-19 04:33] LABS: C-Reactive Protein < 2.90 mg/L (<3.00)
--- NOTE | 2021-06-19 06:32 | P.PN ---
Subjective Date of Service: 06/19/21 Chief Complaint: covid pneumonia Subjective: Improving (Feeling better today, tolerating most of the day on 4 L nasal cannula, however is using nonrebreather almost every 1-2 hours. States he gets very short of breath after small amount of movement. Otherwise doing well) Review of Systems 10-point ROS is otherwise unremarkable Physical Examination - Vital Signs Temperature: 97.4 F Blood Pressure: 121/78 Pulse: 65 Respirations: 20 Pulse Ox (%): 93 Assessment & Plan Physician Review Additional Text: Physical Exam General: Alert, NAD HEENT: Sclera anicteric Respiratory: non-labored respiration on 4L NC Cardiovascular: Regular rate/rhythm, no edema Gastrointestinal: Soft, Non-distended Musculoskeletal: No swelling Problem List Acute respiratory failure with hypoxia secondary to COVID-19 pneumonia DM2, new diagnosis, non-insulin dependence Continue steroid, vitamin supplementation, zinc supplementation. Wean down oxygen as tolerated. Inflammatory markers improved Insulin sliding scale for glucose management. Lantus for persistent hyperglycemia. A1c: 7.6 Pulm consulted improving, tolerating 4LNC but requiring NRB for "rescue" when he gets short of breath Discussed today to stop using the nonrebreather as rescue. Can increase nasal cannula to 6 L if needed Patient very anxious on returning home. Discussed to do only what is available at home today and see how he does (no use of nonrebreather) Possible discharge home tomorrow Code: full Dispo: anticipate dc home in 24-48hrs Time Spent Managing Pts Care (In Minutes): 30
[2021-06-19] MEDS: INSULIN -REGULAR HUMAN 50 UNIT/0.5 ML ML SQ SCH ×4 (07:30→20:06)
[2021-06-19] MEDS: VITAMIN D 1000 UNIT TAB PO SCH (07:44)
[2021-06-19] MEDS: ZINC SULFATE 220 MG CAP PO SCH (07:45)
[2021-06-19] MEDS: ASPIRIN EC 81 MG TAB PO SCH (07:45)
[2021-06-19] MEDS: FAMOTIDINE 20 MG TAB PO SCH ×2 (07:45→19:52)
[2021-06-19] MEDS: METHYLPREDNISOLONE 125 MG INJ IV SCH ×2 (07:45→19:52)
[2021-06-19] MEDS: ASCORBIC ACID 500 MG TABLET PO SCH ×4 (07:46→20:06)
[2021-06-19] MEDS: THIAMINE HCL 100 MG TABLET PO SCH (07:46)
[2021-06-19] MEDS: RIVAROXABAN 20 MG TABLET PO SCH (16:47)
[2021-06-20 06:53] LABS: Absolute Lymphocytes (CBC) 1.3 K/uL (0.7-4.9); Basophils % 0.6 % (0-1.3); Hematocrit 38.3 % (39.6-49.0); Lymphocytes % 9.8 % (15.3-44.8); MPV 7.8 fL (7.6-11.3); RBC Red Blood Cell Count 4.06 M/uL (4.33-5.43)
[2021-06-20 08:04] LABS: BUN Blood Urea Nitrogen 24 mg/dL (7-18); Bicarbonate 34 mmol/L (21-32); Glucose Level 231 mg/dL (74-106); Sodium Level 143 mmol/L (136-145)
[2021-06-20 08:07] LABS: Potassium 5.1 mmol/L (3.5-5.1)
[2021-06-20 08:38] LABS: Blood Morphology Comment NOT SEEN (NOT SEEN); Platelet Estimate ADEQ; Platelets, Giant RARE
[2021-06-20] MEDS: THIAMINE HCL 100 MG TABLET PO SCH (08:42)
[2021-06-20] MEDS: ASPIRIN EC 81 MG TAB PO SCH (08:42)
[2021-06-20] MEDS: ASCORBIC ACID 500 MG TABLET PO SCH ×3 (08:42→17:04)
[2021-06-20] MEDS: VITAMIN D 1000 UNIT TAB PO SCH (08:42)
[2021-06-20] MEDS: ZINC SULFATE 220 MG CAP PO SCH (08:42)
[2021-06-20] MEDS: FAMOTIDINE 20 MG TAB PO SCH (08:42)
[2021-06-20] MEDS: INSULIN -REGULAR HUMAN 50 UNIT/0.5 ML ML SQ SCH ×3 (08:43→17:04)
[2021-06-20] MEDS ORDERED: METHYLPREDNISOLONE 40 MG INJ IV SCH (09:00)
[2021-06-20 13:01] VITALS: O2SAT 90
[2021-06-20 16:42] VITALS: BP 150/88; TEMP 98.9
[2021-06-20] MEDS: RIVAROXABAN 20 MG TABLET PO SCH (17:04)
--- NOTE | 2021-06-20 21:21 | P.DS ---
Admission Date: 06/15/21 Discharge Date: 06/20/21 Disposition: ROUTINE DISCHARGE Discharge Condition: GOOD Reason for Admission: covid pneumonia Consultations: Pulmonology - Dr. Suazo Procedures: CXR (06/15): Marked bilateral pulmonary opacities have worsened since the prior exam The heart is normal size IMPRESSION: Worsening of marked bilateral pulmonary opacities probably pneumonia CTA Chest (06/15): FINDINGS: A pulmonary embolus is not seen. A thoracic aortic aneurysm is not noted. Small pleural effusions. A pericardial effusion is not seen. Moderate to marked bilateral ground-glass lung opacities IMPRESSION: Negative for a pulmonary embolism. Problem List Acute respiratory failure with hypoxia secondary to COVID-19 pneumonia DM2, recent diagnosis, non-insulin dependence Brief History of Present Illness: 66 yo M with HLD who presents with worsening covid pneumonia. He was discharged from the hospital on Wednesday evening with home O2. Over the past few days, he has been unable to catch his breath. When he ambulates, it takes him 20-30 minutes for his sats to return to baseline, when it had taken him 10 minutes in the past. He reports increasing fatigue and [place]. At home, his sats were 47% at rest on O2. He was told to use 3-4L of O2 at home and increase when ambulating but he was still not recovering. He says he thought he could use long leads to go from room to room and leave the O2 tank in the living room. When EMS arrived they told him that he was not getting any oxygen using leads this long. Now at bedside he is on a NRB and says this is the first time in two days that he could breathe. He is frustrated that he did not receive proper instruction on O2 use from the company. CXR shows worsening COVID pneumonia. Hospital Course: Patient had gradual improvement with treatment for his COVID-19 pneumonia. He was tolerating 4L NC for > 24hrs and deemed stable for discharge. Patient and set up for different oxygen concentrator on discharge. He was only home for ~1-2 days before presenting back to the ED and has all darrin or discharge prescriptions at home. He was instructed to continue taking these medications as previously prescribed. To follow up with Dr. Suazo in ~1 week. Vital Signs/Physical Exam: Physical Exam General: Alert, NAD HEENT: Sclera anicteric Respiratory: non-labored respiration on 4L NC Cardiovascular: Regular rate/rhythm, no edema Gastrointestinal: Soft, Non-distended Musculoskeletal: No swelling Temp Pulse Resp BP Pulse Ox 98.9 F 62 18 150/88 H 95 06/20/21 16:00 06/20/21 16:00 06/20/21 16:00 06/20/21 16:00 06/20/21 16:00 Laboratory Data at Discharge: WBC 13.10 K/uL (4.3-10.9) H 06/20/21 06:24 Hgb 12.8 g/dL (13.6-17.9) L 06/20/21 06:24 Hct 38.3 % (39.6-49.0) L 06/20/21 06:24 Plt Count 209 K/uL (152-406) 06/20/21 06:24 PT 11.6 SECONDS (9.5-12.5) 06/15/21 17:55 INR 1.01 06/15/21 17:55 APTT 24.9 SECONDS (24.3-36.9) 06/15/21 17:55 Sodium 143 mmol/L (136-145) 06/20/21 06:24 Potassium 5.1 mmol/L (3.5-5.1) 06/20/21 06:24 BUN 24 mg/dL (7-18) H 06/20/21 06:24 Creatinine 0.74 mg/dL (0.55-1.3) 06/20/21 06:24 Glucose 231 mg/dL (74-106) H 06/20/21 06:24 Phosphorus 3.1 mg/dL (2.5-4.9) 06/17/21 05:09 Magnesium 2.0 mg/dL (1.8-2.4) 06/17/21 05:09 Total Bilirubin 0.8 mg/dL (0.2-1.0) 06/19/21 03:34 AST 22 U/L (15-37) 06/19/21 03:34 ALT 80 U/L (12-78) H 06/19/21 03:34 Alkaline Phosphatase 68 U/L (45-117) 06/19/21 03:34 Lipase 136 U/L (73-393) 06/15/21 17:55 Home Medications: Rosuvastatin [Crestor*] 10 mg PO BEDTIME 05/22/21 Albuterol Inhaler [Ventolin Inhaler*] 2 puff IH Q6H PRN #1 hfa.aer.ad 06/13/21 Albuterol Neb [Proventil 0.083% Neb Soln] 2.5 mg NEB Q6HP PRN #60 amp 06/13/21 Ascorbic Acid [Vitamin C*] 500 mg PO QID #100 tablet 06/13/21 Benzonatate [Tessalon Perle*] 100 mg PO Q8H PRN #30 cap 06/13/21 Budesonide/Formoterol Fumarate [Symbicort 160-4.5 Mcg Inhaler] 1 puff IH BID #1 hfa.aer.ad 06/13/21 Cholecalciferol (Vitamin D3) [Vitamin D 1000 Iu Tab*] 1,000 unit PO DAILY #30 tab 06/13/21 Ensure High Protein 237 ml PO BID #60 can 06/13/21 Famotidine [Pepcid*] 20 mg PO BID #60 tab 06/13/21 Nebulizer Accessories [Aeroneb Go] 1 each MC DAILY #1 each 06/13/21 Nebulizer [Aeroneb Go Nebulizer] 1 each MC DAILY #1 each 06/13/21 Thiamine HCl [Vitamin B-1*] 100 mg PO BID #60 tablet 06/13/21 Zinc Sulfate [Zinc Sulfate*] 220 mg PO DAILY #30 cap 06/13/21 Diet: ADA Activity: Ad yessica Followup: Andrea Suazo MD [ACTIVE - CAN ADMIT] - (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
== END 2021-06-20 20:00 | disposition home health service (06) | DRG 177 ==
LOC: ER 17:32 → ERHOLD 19:39 → 4TH 06-16 21:09
PROVIDERS: ADMIT Family Medicine; ATTEND Family Medicine
DX: U07.1 COVID-19 (principal); J12.82 Pneumonia due to coronavirus disease 2019; J96.01 Acute respiratory failure with hypoxia; E11.65 Type 2 diabetes mellitus with hyperglycemia; E78.5 Hyperlipidemia, unspecified
CPT/HCPCS: 36415; 71045; 71275; 80048; 80053; 80076; 81003; 82728; 82947; 83036; 83605; 83690; 83735; 84100; 84145; 84484; 85025; 85379; 85610; 85730; 86140; 87040; 87070; 87081; 87804; 93005; 94760; 96372; 96374; 96375; 99285; J0456; J2920; J2930; J7030; J7050; Q9967